=== PATIENT | male | born 1940 | race Two or more races ===

== ENCOUNTER 2020-08-04 12:39 | Outpatient (REF) | payer MEDICARE, SELFPAY ==
[2020-08-04 14:11] LABS: PSA,Total (Free>4and<10) 3.72 ng/mL (0.00-4.00)
== END 2020-08-04 12:40 | disposition home or self-care (01) ==
LOC: HO.LAB 12:39
PROVIDERS: PCP Internal Medicine; Visit Provider Urology
DX: N40.1 Benign prostatic hyperplasia with lower urinary tract symptoms (principal); Z80.42 Family history of malignant neoplasm of prostate
CPT/HCPCS: 36415; 84153

== ENCOUNTER → 2020-11-04 08:34 | Outpatient (BNVA) | payer MEDICARE, SELFPAY | PROVIDERS: PCP Internal Medicine; Visit Provider Physician Assistant | CPT/HCPCS: Q3014 ==

== ENCOUNTER 2020-12-22 07:30 | Day surgery (SDC) | payer MEDICARE, SELFPAY ==
[2020-12-17 15:11] VITALS: BMI 27.9
--- NOTE | 2020-12-22 07:38 | P.CONAN_ITS ---
[facility] Active Problems Active Problems: All Active Problems (Updated 11/04/20 @ 09:11 by Fannie day PA-C) History of colon polyps (Acute) Early satiety (Acute) Rectal bleeding (Acute) Past Medical History Medical History Early satiety Family History Family History Family/Other Prostate cancer Cancer Surgical History Surgical History H/O colonoscopy History of prostate surgery Social History Social History Household Members: Family and Children Alcohol intake: current Alcohol intake frequency: does not drink Smoking Status: Current every day smoker Tobacco Type: Cigarette Cigarettes Per Day: 12 Are you DNR?: No Advance Directives: No Advance Directives Information Provided: No Advance Directives on File: No Meds Allergies Allergy/AdvReac Type Severity Reaction Status Date / Time aspirin [ASPIRIN] Allergy Unknown BLEEDING Verified 11/04/20 08:34 diclofenac Allergy Unknown unsure if Verified 11/04/20 08:34 this is accurate Home Medications Medication Instructions Recorded Confirmed Last Taken Type acetaminophen 650 mg 650 mg PO Q8H PRN 11/04/20 11/04/20 Unknown History tablet,extended release finasteride 5 mg tablet 5 mg PO DAILY 11/04/20 11/04/20 Unknown History hydrochlorothiazide 12.5 mg capsule 12.5 mg PO DAILY 11/04/20 11/04/20 Unknown History Exam Exam Date and Time: December 22, 2020 0738 Height,Weight and Vital Signs: Height 5 ft 5 in Weight 76.204 kg Airway Mallampati Class: III TM Dist: >3cm Neck ROM: Full Heart: RRR Lungs: CTA
[2020-12-22 07:56] VITALS: BP 158/106; PULSE 87; RESP 18; TEMP 36.2; O2SAT 96
[2020-12-22] MEDS: Lactated Ringers 1,000 ML 20 ML IVCONT (08:13)
--- NOTE | 2020-12-22 08:36 | P.OP_ITS ---
Operative Note Operative Note Date of Service: 12/22/20 Narrative: Pre-op diagnosis: Colon cancer screening, history of colon polyps, with early satiety, rectal bleeding, and acid reflux . Post-op diagnosis: other (Colon polyps, diverticulosis, hemorrhoids, gastritis, duodenal nodule with ulcer, ) Procedure: FLEXIBLE TRANSORAL UPPER GASTROINTESTINAL ENDOSCOPY WITH BIOPSIES AND COLONOSCOPY TILL CECUM WITH BIOPSIES AND SNARE POLYPECTOMY UPPER ENDOSCOPY Consent: Indications for the procedure and potential complications of bleeding, perforation, reaction to medications and missed diagnosis were discussed with the patient and informed consent was obtained. Instrument: Olympus GIF H 190 mid size upper endoscope Monitoring: Vital signs and clinical assessment, continuous EKG monitoring, Pulse oximetry, Carbon Dioxide monitoring and blood pressure monitoring were done throughout the procedure. Procedure: The patient was placed in the left lateral decubitis position and pre-procedure medications were administered and a bite block was placed. The endoscope was inserted into the mouth and advanced under direct vision to the third part of duodenum. A careful inspection was made as the upper endoscope was withdrawn including a retroflexed examination of the proximal stomach; Findings and interventions are described below. Findings: Larynx: Normal Esophagus: GE junction at 40 cms. Focal mild esophagitis ar GE junction and no Lamar's. Stomach: Moderate diffuse gastric erythema with nodular appearing gastric mucosa. Biopsies were obtained from the antrum and body of the stomach. Grade 2 flap valve on retroflexed examination of the cardia. Duodenum: A 1 cms ulcer in the floor of the bulb with surrounding edematous fold/ 1.5 to 2 cms benign appearing nodule - biopsied. Normal descending duodenum Intervention: Biopsies as noted above COLONOSCOPY PROCEDURE NOTE Consent: Indications for the procedure and potential complications of bleeding, perforation, reaction to medications and missed diagnosis were discussed with the patient and informed consent was obtained. Instrument: Olympus PCF H 190 L variable stiffness pediatric colonoscope Monitoring: Vital signs and clinical assessment, intermittent blood pressure monitoring, continuous EKG monitoring, Pulse oximetry and Carbon Dioxide monitoring were done throughout the procedure. Colon withdrawl time was 32 minutes. Procedure: The patient was placed in the left lateral decubitis position and pre-procedure medications were administered. After a digital rectal examination of the ano-rectum, the video colonoscope was inserted into the rectum and advanced through the colon to the cecum. The colonoscope was slowly withdrawn in a retrograde panoramic fashion and the colon mucosa was carefully examined including a retroflexed view of the rectum. Findings and interventions are described below. Procedure Difficulty: : Without difficulty Findings: Terminal Ileum: Not evaluated Cecum: Partially evaluated across the ICV Ascending Colon: Two 5-6 mm sessile polyps removed with a cold bx and moderate diverticulosis Transverse Colon: Two 5-6 mm sessile polyps removed with a cold bx. An 8-10 mm flat diminutive appearing polyp removed piecemeal with the cold biopsy and moderate diverticulosis seizure Descending Colon: A 10 mm sessile polyp removed with a hot snare and moderate diverticulosis Sigmoid Colon: Severe diverticulosis Rectum: Normal Ano-rectum: Moderate internal hemorrhoids Colon preparation: Good after copious irrigation and fair in some areas of the colon due to solid stool balls. Impression and Post Procedure Diagnosis: Endoscopy Findings: ESOPHAGUS: focal esophagitis at GE junction STOMACH: Nodular gastritis DUODENUM: A 1 cms ulcer in the floor of the bulb with surrounding edematous fold/ 1.5 to 2 cms benign appearing nodule - biopsied. Colonoscopy Findings: Six small to medium sized polyps removed Moderate to severe diverticulosis seen in the entire colon Moderate hemorrhoids on retroflexed exam - likely source for rectal bleeding. Plan: Await pathology results Plan: Await pathology results Patient has an appointment on 01/07/21 in the GI Clinic with CADY Meeks . Repeat Colonoscopy interval based on path results - in 3 years if polyps are adenomatous and 10 years if polyps are hyperplastic. Above findings were reviewed with the patient and colon polyps and diverticulosis handouts were given in the discharge area Surgeon: Soila Allen MD Anesthesia: MAC (Dr Brian ) Was an Learning Disabilities Teacher used for this Procedure?: No Estimated blood loss (mL): 0 Pathology: other (A: GASTRIC BXS R/O H. PYLORI B: NODULE DUODENAL BULB C: GASTRIC BODY D. ASCENDING COLON POLYPS E. TRANSVERSE COLON POLYP F. TRANSVERSE COLON POLYP AT 60CM ) Condition: stable Disposition: PACU
--- NOTE | 2020-12-22 08:36 | MHC.SHP ---
Pre-Procedural Eval Section A The patient is an INPATIENT: No The History & Physical has been completed within 30 days and I have reviewed it.: No Section B Chief Complaint: rectal bleeding, Early satiety Details of Present Illness: Colon cancer screening, history of colon polyps, early satiety, rectal bleeding Relevant Family History (Specify if Yes): Yes Relevant Social History: Tobacco Use Present Medications: see Short Stay Collaborative assessment Medical History: Significant History (hx of colon polyps) History of Previous Operations: Relevant previous surgery/procedure and date(s) (H/O colonoscopy History of prostate surgery) Allergies: Allergies Allergy/AdvReac Type Severity Reaction Status Date / Time aspirin [ASPIRIN] Allergy Mild BLEEDING Verified 12/22/20 07:56 diclofenac Allergy Unknown unsure if Verified 12/22/20 07:56 this is accurate Review of Systems Sugical H&P ROS: Negative: Constitution and Cardiovascular and Yes, Specify: Respiratory (shortness of breath) and Gastrointestinal (E satiety, rectal bleedingarly) Exam Surgical H&P Exam: Normal: Heart, Normal: Lungs, Normal: Extremities and Normal: Abdomen Plan Diagnosis/Plan: Unchanged I have reviewed the history and physical and performed a pertinent physical examination on my patient. No changes have occurred unless specified.
[2020-12-22 09:50] VITALS: BP 122/76; PULSE 87; RESP 16; TEMP 36.1; O2SAT 96
[2020-12-22 10:05] VITALS: BP 122/89; PULSE 74; RESP 16; TEMP 36.1; O2SAT 96
[2020-12-22 10:20] VITALS: BP 144/98; PULSE 67; RESP 16; TEMP 36.1; O2SAT 96
--- NOTE | 2020-12-22 12:54 | HO.POSTANES ---
Post Anesthesia Evaluation Post Anesthesia Evaluation Vital Signs: Vital Signs Temp Pulse Resp BP Pulse Ox 12/22/20 10:20 97 F 67 16 144/98 H 96 12/22/20 10:05 97 F 74 16 122/89 96 12/22/20 09:50 97 F 87 16 122/76 96 12/22/20 07:56 97.2 F 87 18 158/106 H 96 Anesthesia: Monitored Mental Status: Awake Pain Control: Satisfactory Nausea/Vomiting: None Hydration: Adequate Anesthesia-Related Issues: No Anes. Related Issues
== END 2020-12-22 11:16 | disposition home or self-care (01) ==
PROVIDERS: PCP Internal Medicine; Visit Provider Internal Medicine Gastroenterology
PROC: (CPT 45385; principal; 2020-12-22 07:30)
DX: Z12.11 Encounter for screening for malignant neoplasm of colon (principal); Z86.010 Personal history of colon polyps; K51.40 Inflammatory polyps of colon without complications; K63.5 Polyp of colon; K57.30 Diverticulosis of large intestine without perforation or abscess without bleeding; K64.8 Other hemorrhoids; K62.5 Hemorrhage of anus and rectum; R68.81 Early satiety; K21.00 Gastro-esophageal reflux disease with esophagitis, without bleeding; K31.7 Polyp of stomach and duodenum; K26.9 Duodenal ulcer, unspecified as acute or chronic, without hemorrhage or perforation; Z79.899 Other long term (current) drug therapy; Z88.8 Allergy status to other drugs, medicaments and biological substances; F17.210 Nicotine dependence, cigarettes, uncomplicated
CPT/HCPCS: 45385; 45380; 43239; 88305; 88312; 88342

== ENCOUNTER → 2021-02-03 12:45 | Outpatient (BNVA) | payer MEDICARE, SELFPAY | PROVIDERS: PCP Internal Medicine; Visit Provider Physician Assistant | CPT/HCPCS: Q3014 ==

== ENCOUNTER → 2021-12-01 11:16 | Outpatient (BNVA) | payer MEDICARE, SELFPAY | PROVIDERS: PCP Internal Medicine; Visit Provider Surgery | DX: L72.3 Sebaceous cyst (principal); I10 Essential (primary) hypertension; F17.210 Nicotine dependence, cigarettes, uncomplicated | CPT/HCPCS: 99202 ==

== ENCOUNTER 2022-01-11 07:58 | Outpatient (REF) | payer OTHER, SELFPAY ==
--- NOTE | ~2022-01-11 | US_ITS ---
EXAMINATION: US RETROPERITONEAL LIMITED (AORTA) CLINICAL INFORMATION: History of smoking, AAA screening. COMPARISON: None TECHNIQUE: Lovelace-scale, color Doppler and spectral Doppler evaluation of the abdominal aorta. FINDINGS: Slightly dilated abdominal aorta. No aneurysm is seen. The measurements of the aorta in maximum AP and transverse dimensions respectively are as follows: Proximal: 3.5 x 3.4 cm. Mid: 2.4 x 2.7 cm. Distal: 2.8 x 3.0 cm. PSV: 40.0 cm/s. Slightly dilated common iliac arteries. The measurements of the common iliac arteries in maximum AP and TRV dimensions are as follows: Right Common Iliac Artery: 1.4 x 1.1 cm. Left Common Iliac Artery: 1.5 x 1.4 cm. US/US aorta IMPRESSION: Slightly dilated abdominal aorta and common iliac arteries. No aneurysm is seen..
== END 2022-01-11 07:59 | disposition home or self-care (01) ==
LOC: HO.US 07:58
PROVIDERS: PCP Internal Medicine; Visit Provider Internal Medicine
DX: Z13.6 Encounter for screening for cardiovascular disorders (principal); F17.210 Nicotine dependence, cigarettes, uncomplicated
CPT/HCPCS: 76775

== ENCOUNTER 2022-01-29 09:05 | Outpatient (REF) | payer OTHER, SELFPAY ==
--- NOTE | ~2022-01-29 | XR_ITS ---
EXAMINATION: XR CHEST CLINICAL INFORMATION: Shortness of breath and cough COMPARISON: Previous chest x-ray from [address] from 2018 TECHNIQUE: 2 views of the chest were obtained. FINDINGS: The cardiac silhouette does not appear enlarged. The thoracic aorta is very tortuous and slightly dilated. This appears unchanged from [address] The lungs are clear. There is no pleural effusion or pneumothorax. Bony structures are unremarkable. XR/XR chest 2V IMPRESSION: Very tortuous slightly dilated descending thoracic aorta similar to chest CTA July 2017.
[2022-01-29 10:03] LABS: Appearance Urine CLEAR; Color Urine YELLOW; Glucose Urine UA NEG (NEG); Leukocyte Esterase Urine NEG (NEG); Nitrite Urine NEG (NEG); Specific Gravity - Urine 1.025 (1.005-1.025); UACC Culture Trigger NO; Urine Blood TRACE (NEG); Urine Ketones NEG (NEG); Urine Protein 1+ MG/DL (NEG-TRACE)
[2022-01-29 10:33] LABS: Anion Gap 11 (12-20); Blood Urea Nitrogen 20 mg/dL (9-16); Calcium 8.7 mg/dL (8.4-10.2); Carbon Dioxide 26 mmol/L (22-29); Chloride 105 mmol/L (96-108); Estimated Glomerular Filt Rate 52; Glucose Random 88 mg/dL (60-115); Potassium 4.3 mmol/L (3.3-5.1); Sodium 138 mmol/L (135-145)
[2022-01-29 10:42] LABS: B Type Natriuretic Peptide 27 pg/mL (<100)
[2022-01-29 11:19] LABS: Mucus Urine 1+ /LPF; RBC Urine 0-2 /HPF (0); WBC Urine 0-2 /HPF (0-4)
== END 2022-01-29 09:06 | disposition home or self-care (01) ==
LOC: HO.LAB 09:05
PROVIDERS: PCP Internal Medicine; Visit Provider Internal Medicine
DX: R06.02 Shortness of breath (principal)
CPT/HCPCS: 36415; 71046; 80048; 81001; 83880

== ENCOUNTER → 2022-06-03 14:50 | Outpatient (REF) | payer OTHER, SELFPAY ==
--- NOTE | 2022-06-03 15:00 | CA_ITS ---
Transthoracic Echocardiogram Patient (Last, First, Middle): Isauro Tiwari, Gender: Male Date of : 1940 Age: 81 Procedure Date: 06/03/2022 Procedure Type: Transthoracic Echocardiogram Location: OP Height: 165.1 cm Weight: 76.2 kg BSA: 1.84 m2 Heart Rate: bpm BP: 122 / 70 mmHg Supervisor Labor Gang: Referring MD: Estrella Beck MD Symptoms: I10 HTN, R06.02 SHORTNESS OF BREATH Study Quality: Good ECG Rhythm: Sinus Conclusions: - The left ventricular systolic function is normal. The calculated ejection fraction is 56% by biplane method. - Aortic valve sclerosis without any significant stenosis. Findings Left Ventricle Normal left ventricular cavity size. There is normal left ventricular wall thickness. The left ventricular systolic function is normal. The calculated ejection fraction is 56% by biplane method. There is no evidence of regional wall motion abnormalities. Diastolic function is normal for age. There is moderate septal and moderate basal asymmetric hypertrophy. Right Ventricle Normal right ventricular cavity size and systolic function. Atria Both atria are normal in size. Aortic Valve There is mild calcification of the aortic valve. There is mild thickening of the aortic valve. There is no aortic valve stenosis. There is no aortic valve regurgitation. Mitral Valve The mitral valve appears normal. There is trace mitral valve regurgitation. There is no mitral valve stenosis. Pulmonic Valve The pulmonic valve is likely normal. Tricuspid Valve Normal tricuspid valve structure. There is trace tricuspid valve regurgitation. There is no evidence of pulmonary hypertension. Great Vessels Top normal ascending aortic size at 3.9cm. Venous The inferior vena cava is normal in size and collapses greater than 50% with inspiration. Pericardium/Pleural There is no evidence of pericardial effusion. Prior Study Comparison No prior study available for comparison. Measurements 2D Linear Measurements IVSd: 1.07 0.6-0.9/0.6-1.0 cm LVIDd: 4.23 3.9-5.3/4.2-5.9 cm LVIDd Index: 2.30 2.4-3.2/2.2-3.1 cm/m2 LVIDs: 2.84 2.0-3.6 cm LVPWd: 1.01 0.7-1.1 cm Ao Root: 4.00 2.1-3.5 cm LA Diam: 3.90 2.7-3.8/3.0-4.0 cm LAIDs Index: 2.12 1.5-2.3 cm/m2 LV Mass: 182.57 67-162/88-224 g LV Mass Index: 99.23 43-95/49-115 g/m2 LVOT Diam: 2.20 3.0+(-)1.3 cm 2D Systolic Function EF 4C: 52.60 >55% EF 2C: 57.30 >55% EF BiP: 56.10 >55% Mitral Valve MV Pk E: 0.75 MV PK A: 1.11 MV Decel Time: 220.00 E/A: 0.70 E'Lateral: 7.07 E'Medial: 6.53 E/E' Med: 11.40 E/E' Lat: 10.60 PHT: 65.00 MVA PHT: 3.38 Decel Clark: 3.38 Aortic Valve AoV Pk Pedro: 1.89 AoV Mn Pedro: 1.24 AoV VTI: 0.42 AoV Pk Grad: 14.00 Aov Mn Grad: 8.00 PARI Cont.VTI: 1.70 LVOT LVOT Pk Pedro: 0.82 LVOT Mn Pedro: 0.54 LVOT VTI: 0.19 LVOT Pk Grad: 3.00 LVOT Mn Grad: 1.00 LVOT Diam: 2.20 LVOT Area: 3.80 Diastolic Function MV Pk E: 0.75 MV Pk A: 1.11 E/A: 0.70 E'Medial: 6.53 E/E' Med: 11.40 E' Laterial: 7.07 E/E' Lat: 10.60 Right Ventricle TAPSE (mm): 27.00 TVS' Pedro: 11.00 Tricuspid Valve TR Pk Pedro: 2.25 TR Pk Grad: 20.00 RA Press: 3.00 RVSP: 23.00 Great Vessels Aorta Ao Root-2D: 4.00 2.0-3.7 cm Ao Asc: 3.90 2.1-3.4 cm Pulmonary Valve PV Pk Pedro: 0.88 Peak PV Grad: 3.00 Updated in Other Vendor System with Status of Final Molina Patel MD electronically signed on 06/04/2022 9:21:23 AM with status of Final
== END ==
LOC: HO.CARD 14:50
PROVIDERS: PCP Internal Medicine; Visit Provider Internal Medicine
DX: R06.02 Shortness of breath (principal); I10 Essential (primary) hypertension
CPT/HCPCS: 93306

== ENCOUNTER 2022-12-02 14:54 | Outpatient (REF) | payer OTHER, SELFPAY ==
[2022-12-02 16:59] LABS: Urine Cytology See Pathology rpt
== END 2022-12-02 14:55 | disposition home or self-care (01) ==
LOC: HO.LNP 14:54
PROVIDERS: PCP Internal Medicine; Visit Provider Urology
DX: N40.1 Benign prostatic hyperplasia with lower urinary tract symptoms (principal); N13.8 Other obstructive and reflux uropathy; R35.1 Nocturia; R39.89 Other symptoms and signs involving the genitourinary system; R31.9 Hematuria, unspecified
CPT/HCPCS: 51798; 88112; 99212

== ENCOUNTER 2023-02-20 10:03 | Outpatient (REF) | payer OTHER, SELFPAY ==
--- NOTE | ~2023-02-20 | US_ITS ---
EXAMINATION: US RETROPERITONEAL COMPLETE (RENAL) CLINICAL INFORMATION: Benign prostatic hyperplasia with lower urinary tract symptoms. COMPARISON: MRI abdomen without and with contrast 11/09/2017. CT abdomen and pelvis without and with contrast 09/22/2017. TECHNIQUE: Real-time imaging of the kidneys and bladder. FINDINGS: RIGHT KIDNEY: 10.9 x 5.1 x 4.5 cm (SAG x AP x TRV). The kidney is normal in size, contour, and echogenicity. Renal cortical thickness is normal. No renal calculi or hydronephrosis. Benign-appearing renal cysts measuring up to 1.3 cm. No follow-up imaging is recommended. LEFT KIDNEY: 11.3 x 6.0 x 5.2 cm (SAG x AP x TRV). The kidney is normal in size, contour, and echogenicity. Renal cortical thickness is normal. No renal calculi or hydronephrosis. Benign-appearing renal cysts measuring up to 2.8 cm. No follow-up imaging is recommended. BLADDER: Well distended and normal. Bilateral ureteral jets are demonstrated. Prevoid bladder volume is 189 mL. Postvoid bladder volume is 42.4 mL. ADDITIONAL FINDINGS: Prostate is enlarged with a volume of 72.9 mL. US/US retroperitoneal comp IMPRESSION: Prostate is enlarged with a volume of 72.9 mL.
[2023-02-20 12:45] LABS: PSA,Total (Free>4and<10) 1.85 ng/mL (0.00-4.00)
== END 2023-02-20 10:04 | disposition home or self-care (01) ==
LOC: HO.US 10:03
PROVIDERS: Visit Provider Urology
DX: Z12.5 Encounter for screening for malignant neoplasm of prostate (principal); R31.9 Hematuria, unspecified; N40.1 Benign prostatic hyperplasia with lower urinary tract symptoms; N13.8 Other obstructive and reflux uropathy; R39.89 Other symptoms and signs involving the genitourinary system
CPT/HCPCS: 36415; 76770; 84153

== ENCOUNTER 2023-03-02 09:09 | Outpatient (AMB) | payer OTHER, SELFPAY ==
--- NOTE | 2023-03-02 09:21 | A.OFFVIS_ITS ---
Intake Intake Visit Reasons: Cysto/PSA/US(set) Intake Note: Patient is present for Cystoscopy Urology Med: Finasteride, Tamsulosin Antibiotic Allergy: None Blood Thinner: None Pharmacy: [facility] Disposable Cystoscope used during Procedure LOT#: [id number] EXP: 12/02/2024 Patient is requesting refill on Finasteride. States the medication has been very helpful Allergies aspirin [ASPIRIN] Allergy (Mild, Verified 03/02/23 09:24) BLEEDING diclofenac Allergy (Unknown, Verified 03/02/23 09:24) unsure if this is accurate Medication List - Last Reconciled 03/02/23 by Joaquin Alvarez MD acetaminophen ER 650 mg PO Q8H PRN docusate sodium (Colace) 200 mg (2 x 100 mg) PO BEDTIME finasteride (Proscar) 5 mg PO DAILY 90 days hydrochlorothiazide 12.5 mg PO DAILY omeprazole 20 mg PO DAILY pantoprazole 40 mg PO DAILY 30 days tamsulosin 0.4 mg PO DAILY 90 days HPI HPI Comments History of Present Illness Details Isauro is very pleasant male. He is seen for the following urologic conditions - lower urinary tract symptoms - hematuria Irish translation provided by qualified medical record assistant Here for cystoscopy following episode of hematuria Thinks things improve slowly with combination finasteride and tamsulosin Cystoscopy performed with regrowth of prostate and neovascularity Discussed need for repeat potential procedure Six month follow-up Lower urinary tract symptoms Longstanding Current therapy finasteride and tamsulosin Prior procedure on prostate Family history of prostate cancer Prior episode of hematuria Imaging - 02/19 renal bladder ultrasound with bilateral renal cysts and enlarged prostate 72 g PFSH Medical History BPH (benign prostatic hyperplasia) Early satiety HTN (hypertension) Surgical History H/O colonoscopy History of prostate surgery Family History Family/Other Prostate cancer Cancer Social History Household Members: Family and Children Alcohol intake: current Alcohol intake frequency: does not drink Cigarettes Per Day: 12 Review of Systems Const Denies chills and Denies fever(s) Card Reports no additional complaints and Denies syncope Resp Denies cough GI Denies abdominal pain and Denies heartburn Reports as per HPI and Denies change in libido Neuro Denies syncope Psych Denies change in libido Endo Denies change in libido Physical Exam Const General: cooperative, healthy appearing, comfortable and no acute distress Orientation/consciousness: patient oriented x3 HEENT Face and sinus: Yes normal facial exam Mouth: moist mucous membranes Neck Neck: Yes normal visual inspection, Yes full ROM and Yes trachea midline Chest Chest palpation & inspection: normal inspection of the chest Resp Effort & Inspection: normal respiratory effort, able to speak in complete sentences and no respiratory distress GI Inspection: Yes normal to inspection Back/Spine/Pelvis Cervical Spine: normal cervical lordosis Thoracic/Lumbar Spine: thoracic and lumbar spine normal to inspection Skin General skin exam: no rashes or lesions noted Neuro General: patient oriented x3, gait normal, tone normal and moves all extremities Extrem General: Yes normal to inspection and Yes capillary refill normal Office Procedures Cystoscopy Consent Discussed risk and benefit or proposed procedure with the patient. Information consent for procedure given to the patient. Discussed technical aspects, risks, benefits and alternatives in full. Addressed all of the patient's questions and concerns regarding the procedure. The patient demonstrated knowledge and understanding. They wish to proceed with this procedure. Preparation The patient was prepped in the usual manner. A senior data analyst was present and in the room. Genitalia was prepped with betadine solution in a sterile manner. Lidocaine Jelly 2% was placed into the urethra and 16Fr flexible Olympus cystoscope was inserted into the meatus after adequate lubrication. [id number] Procedure code (CPT) selection complete Office Meds lidocaine HCl Performing Provider: Joaquin Alvarez MD Administered by: Mar Richard RN on 03/02/23 09:42 Dose Route Admin Location Lot Number Expiration Date [employer] 10 mL intra-urethral nitrofurantoin monohyd/m-cryst 100 mg Performing Provider: Joaquin Alvarez MD Administered by: Mar Richard RN on 03/02/23 09:42 Dose Route Admin Location Lot Number Expiration Date [employer] 100 mg PO Assessment & Plan Assessment & Plan (1) Hematuria: Code(s): R31.9 - Hematuria, unspecified (2) BPH w urinary obs/LUTS: Code(s): N40.1 - Benign prostatic hyperplasia with lower urinary tract symptoms; N13.8 - Other obstructive and reflux uropathy Plan Six month follow-up Orders: Orders PSA,Total (Free>4and<10) 02/20/23 N13.8 - Other obstructive and reflux uropathy, N40.1 - Benign prostatic hyperplasia with lower urinary tract symptoms Vidal Ayers MD AMB Cystoscopy Today R31.9 - Hematuria, unspecified Joaquin Alvarez MD AMB Urinalysis Automated Today Z13.9 - Encounter for screening, unspecified Joaquin Alvarez MD Medications: Refilled tamsulosin 0.4 mg PO DAILY 90 caps 1RF 90 days Joaquin Alvarez MD finasteride (Proscar) 5 mg PO DAILY 90 tabs 3RF 90 days C61 - Malignant neoplasm of prostate Joaquin Alvarez MD Patient Instructions: Imaging studies, laboratory and physical exam results were discussed and reviewed in detail. No major barriers to patient understanding were identified. An opportunity to ask questions regarding the treatment plan was provided. All questions were answered. The patient expressed understanding and agreement with the above treatment plan. The patient is aware they should contact our office by phone for worsening of their current condition or the appearance of new urologic symptoms. Compliance is encouraged with any medications and followup testing that is ordered. It is a privilege to participate in the urologic care of your patient. If you have any questions or concerns regarding treatment for the above conditions, or other urologic issues, please do not hesitate to contact me. The office telephone contact is [phone]. This note is constructed using voice recognition software. While every effort has been made to ensure accuracy optical laboratory technician errors may have been included. Yours sincerely, Dr Joaquin Alvarez MD, [facility] - Urology Providers of Expert, Compassionate Care for the Genitourinary System Coding Level of Care Code Est Pt Level 4 (58252) Diagnoses Hematuria R31.9 BPH w urinary obs/LUTS N40.1; N13.8 CPT Codes Cystoscopy - CPT: 94149-[id number] ([id number])
== END 2023-03-02 11:01 | disposition home or self-care (01) ==
PROVIDERS: Visit Provider Urology
DX: R31.9 Hematuria, unspecified (principal); N40.1 Benign prostatic hyperplasia with lower urinary tract symptoms; N13.8 Other obstructive and reflux uropathy
CPT/HCPCS: 52000

== ENCOUNTER → 2023-03-02 09:09 | Outpatient (BNVA) | payer OTHER, SELFPAY | PROVIDERS: Visit Provider Urology | DX: N40.1 Benign prostatic hyperplasia with lower urinary tract symptoms (principal); N13.8 Other obstructive and reflux uropathy; R31.9 Hematuria, unspecified | CPT/HCPCS: 52000 ==

== ENCOUNTER 2023-03-20 10:50 | Outpatient (REF) | payer OTHER, SELFPAY ==
--- NOTE | ~2023-03-20 | XR_ITS ---
EXAMINATION: XR HIP, LEFT CLINICAL INFORMATION: Pain. COMPARISON: None available. TECHNIQUE: AP and frog-leg lateral views of the left hip. FINDINGS: Bony alignment and mineralization are normal. The left acetabular joint space is well-maintained. There is slight peripheral osteophyte formation of the left acetabular roof. The left femoral head is smooth. No fracture or dislocation is seen. The pubic symphysis is intact. No foreign body is seen. There are vasectomy clips. 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 No fracture or dislocation is seen.
--- NOTE | ~2023-03-20 | XR_ITS ---
EXAMINATION: CERVICAL SPINE 3 VIEWS CLINICAL INFORMATION: Neck pain status-post fall. COMPARISON: None. TECHNIQUE: Frontal, lateral and odontoid views are obtained. FINDINGS: Vertebral body heights and alignment are normal. At C4-C5, there is mild disc space narrowing. At C6-C7, there is marked disc space narrowing. At C7-T1, there is a 3 mm anterolisthesis. The remaining disc spaces are relatively well-maintained. No acute fracture or spondylolisthesis is seen. There is multi-level mild cervical spondylosis. The posterior elements are intact. The dens and C7-T1 interface are normal. There is no prevertebral soft tissue swelling. 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 Degenerative disc disease is most pronounced at C6-C7, where it is severe. EXAMINATION: XR LUMBOSACRAL SPINE CLINICAL INFORMATION: Lower back pain status-post fall. COMPARISON: Lumbar spine radiographs dated 03/30/2015. TECHNIQUE: AP and lateral views of the lumbar spine and lateral view of the lumbosacral junction. FINDINGS: There is bony demineralization. There is a mild lumbar rotatory dextroscoliosis. Vertebral body heights are normal. At L5-S1, there is moderate disc space narrowing, with spondylosis. The remaining disc spaces are relatively well-maintained. No acute fracture or spondylolisthesis is seen. This multi-level mild lumbar spondylosis. The posterior elements are intact. There are aortoiliac atherosclerotic calcifications. The paravertebral soft tissues are unremarkable. IMPRESSION: 1. At L5-S1, there is moderate degenerative disc disease, with facet arthropathy. 2. No acute fracture or spondylolisthesis is seen. 3. There is multi-level lumbar facet arthropathy. 4. There is a mild lumbar rotatory dextroscoliosis.
--- NOTE | ~2023-03-20 | XR_ITS ---
EXAMINATION: CERVICAL SPINE 3 VIEWS CLINICAL INFORMATION: Neck pain status-post fall. COMPARISON: None. TECHNIQUE: Frontal, lateral and odontoid views are obtained. FINDINGS: Vertebral body heights and alignment are normal. At C4-C5, there is mild disc space narrowing. At C6-C7, there is marked disc space narrowing. At C7-T1, there is a 3 mm anterolisthesis. The remaining disc spaces are relatively well-maintained. No acute fracture or spondylolisthesis is seen. There is multi-level mild cervical spondylosis. The posterior elements are intact. The dens and C7-T1 interface are normal. There is no prevertebral soft tissue swelling. 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 Degenerative disc disease is most pronounced at C6-C7, where it is severe. EXAMINATION: XR LUMBOSACRAL SPINE CLINICAL INFORMATION: Lower back pain status-post fall. COMPARISON: Lumbar spine radiographs dated 03/30/2015. TECHNIQUE: AP and lateral views of the lumbar spine and lateral view of the lumbosacral junction. FINDINGS: There is bony demineralization. There is a mild lumbar rotatory dextroscoliosis. Vertebral body heights are normal. At L5-S1, there is moderate disc space narrowing, with spondylosis. The remaining disc spaces are relatively well-maintained. No acute fracture or spondylolisthesis is seen. This multi-level mild lumbar spondylosis. The posterior elements are intact. There are aortoiliac atherosclerotic calcifications. The paravertebral soft tissues are unremarkable. IMPRESSION: 1. At L5-S1, there is moderate degenerative disc disease, with facet arthropathy. 2. No acute fracture or spondylolisthesis is seen. 3. There is multi-level lumbar facet arthropathy. 4. There is a mild lumbar rotatory dextroscoliosis.
== END 2023-03-20 10:51 | disposition home or self-care (01) ==
LOC: HO.XRAY 10:50
PROVIDERS: PCP Internal Medicine; Visit Provider Internal Medicine
DX: M54.50 Low back pain, unspecified (principal); M54.2 Cervicalgia; M25.552 Pain in left hip
CPT/HCPCS: 72050; 72100; 73502

== ENCOUNTER → 2023-04-18 11:24 | Outpatient (REF) | payer OTHER, SELFPAY ==
--- NOTE | 2023-04-18 11:29 | HM_ITS ---
Conclusion: 1. Patient was monitored for total period of 2 days 2. Baseline was normal sinus with average heart of 80 beats per minute 3. No significant pauses noted 4. Rare PACs and PVCs noted 5. No patient reported events MTDD
== END ==
LOC: HO.CARD 11:24
PROVIDERS: PCP Internal Medicine; Visit Provider Internal Medicine
DX: R55 Syncope and collapse (principal)
CPT/HCPCS: 93225

== ENCOUNTER → 2023-04-18 11:29 | Outpatient (BNV) | payer OTHER, SELFPAY | PROVIDERS: PCP Internal Medicine; Visit Provider Internal Medicine Cardiovascular Disease | DX: I49.1 Atrial premature depolarization (principal) | CPT/HCPCS: 93227 ==

== ENCOUNTER 2023-09-13 11:24 | Outpatient (REF) | payer OTHER, SELFPAY ==
[2023-09-13 15:06] LABS: PSA,Total (Free>4and<10) 1.38 ng/mL (0.00-4.00)
== END 2023-09-13 11:25 | disposition home or self-care (01) ==
LOC: HO.CHCLDS 11:24
PROVIDERS: Visit Provider Urology
DX: N40.1 Benign prostatic hyperplasia with lower urinary tract symptoms (principal); N13.8 Other obstructive and reflux uropathy; Z12.5 Encounter for screening for malignant neoplasm of prostate
CPT/HCPCS: 36415; 84153

== ENCOUNTER 2023-09-29 13:38 | Outpatient (AMB) | payer OTHER, SELFPAY ==
--- NOTE | 2023-09-29 13:43 | A.OFFVIS_ITS ---
Intake Intake Visit Reasons: 6M PSA/PVR(set) (Confirmed) Intake Note: Patient presents today for a follow-up Labs and PVR Meds- Finasteride, Tamsulosin Allergies to Antibiotic- No Known Allergies Blood Thinner- None Post Void Residual: 10ml Cutter Tender Required: No Accompanied by: Self / Same As Patient Allergies aspirin [ASPIRIN] Allergy (Mild, Verified 09/29/23 14:04) BLEEDING diclofenac Allergy (Unknown, Verified 09/29/23 14:04) unsure if this is accurate HPI HPI Comments History of Present Illness Details Isauro is very pleasant male. He is seen for the following urologic conditions - lower urinary tract symptoms - hematuria Georgian translation provided by qualified director medical science Combination tamsulosin and finasteride PVR 10 cc Prior cystoscopy with regrowth of prostate neovascularity 02/19 Refill current prescriptions Schedule follow-up GreenLight laser prostate Lower urinary tract symptoms Longstanding Current therapy finasteride and tamsulosin Prior procedure on prostate Family history of prostate cancer Prior episode of hematuria Imaging - 02/19 renal bladder ultrasound with bilateral renal cysts and enlarged prostate 72 g PFSH Medical History BPH (benign prostatic hyperplasia) Early satiety HTN (hypertension) Surgical History H/O colonoscopy History of prostate surgery Family History Family/Other Prostate cancer Cancer Social History Household Members: Family and Children Alcohol intake: current Alcohol intake frequency: does not drink Cigarettes Per Day: 12 Review of Systems Const Denies chills and Denies fever(s) Card Reports no additional complaints and Denies syncope Resp Denies cough GI Denies abdominal pain and Denies heartburn Reports as per HPI and Denies change in libido Neuro Denies syncope Psych Denies change in libido Endo Denies change in libido Physical Exam Const General: cooperative, healthy appearing, comfortable and no acute distress Orientation/consciousness: patient oriented x3 HEENT Face and sinus: Yes normal facial exam Mouth: moist mucous membranes Neck Neck: Yes normal visual inspection, Yes full ROM and Yes trachea midline Chest Chest palpation & inspection: normal inspection of the chest Resp Effort & Inspection: normal respiratory effort, able to speak in complete sentences and no respiratory distress GI Inspection: Yes normal to inspection Back/Spine/Pelvis Cervical Spine: normal cervical lordosis Thoracic/Lumbar Spine: thoracic and lumbar spine normal to inspection Skin General skin exam: no rashes or lesions noted Neuro General: patient oriented x3, gait normal, tone normal and moves all extremities Extrem General: Yes normal to inspection and Yes capillary refill normal Office Procedures Post Void Residual Post Residual Void Post Void Residual (PVR): 10 90913-[id number] Void Residual by ultrasound Results AMB Urinalysis, Automated UA Leukoctes 0 Analisa/uL Last Edit by Awilda Lowemicah Lowe [facility] on 09/29/23 14 :10 UA Nitrite Negative [facility] on 09/29/23 14: 10 UA Urobilinogen 0.2 mg/dL [facility] on 4 14:10 UA Protein 15 mg/dL Last Edit [facility] on 09/29/23 14:1 0 UA pH 6.0 Last Edit [facility] on 09/29/23 14:10 UA Blood 0 Shaka/uL Last Edit [facility] on 09/29/23 14:10 UA Specific [place] 1.020 Last Edit [facility] on 14:10 UA Ketone Negative Last Edit [facility] on 09/29/23 14:1 0 UA Bilirubin 0 mg/dL Last Edit [facility] on 09/29/23 14: 10 UA Glucose 0 mg/dL Last Edit [facility], [facility] on 09/29/23 14:10 Assessment & Plan Assessment & Plan (1) BPH w urinary obs/LUTS: Code(s): N40.1 - Benign prostatic hyperplasia with lower urinary tract symptoms; N13.8 - Other obstructive and reflux uropathy (2) Nocturia: Code(s): R35.1 - Nocturia Plan Risks, benefits and alternatives to therapy were discussed. These include but are not limited to infection, bleeding, damage to local organs and tissues, need for further interventions. Anesthetic risks regarding cardiac arrhythmia, blood clots, and potential mortality were discussed. The patient understands the typical recovery time and the outpatient nature of the procedure. After consideration of these risks the patient gives full informed consent and they wish to move ahead with the procedure. GreenLight laser prostatectomy Orders: Orders AMB Post Void Residual by ultrasound Today R33.9 - Retention of urine, unspecified AMB Urinalysis Automated Today R33.9 - Retention of urine, unspecified Medications: Refilled tamsulosin 0.4 mg PO DAILY 90 days 90 caps 1RF finasteride (Proscar) 5 mg PO DAILY 90 days 90 tabs 3RF C61 - Malignant neoplasm of prostate Discontinued omeprazole Discontinued Reason: Patient Refused 20 mg PO DAILY 30 caps 5RF docusate sodium (Colace) Discontinued Reason: Patient Refused 200 mg (2 x 100 mg) PO BEDTIME 60 caps 5RF pantoprazole Discontinued Reason: Patient Refused 40 mg PO DAILY 30 days 30 tabs 4RF Patient Instructions: Imaging studies, laboratory and physical exam results were discussed and reviewed in detail. No major barriers to patient understanding were identified. An opportunity to ask questions regarding the treatment plan was provided. All questions were answered. The patient expressed understanding and agreement with the above treatment plan. The patient is aware they should contact our office by phone for worsening of their current condition or the appearance of new urologic symptoms. Compliance is encouraged with any medications and followup testing that is ordered. It is a privilege to participate in the urologic care of your patient. If you have any questions or concerns regarding treatment for the above conditions, or other urologic issues, please do not hesitate to contact me. The office telephone contact is [phone]. This note is constructed using voice recognition software. While every effort has been made to ensure accuracy advertising job titles errors may have been included. Yours sincerely, Dr Joaquin Alvarez MD, ALBERTO [facility] - Urology Providers of Expert, Compassionate Care for the Genitourinary System Coding Level of Care Code Est Pt Level 4 (23242) Diagnoses BPH w urinary obs/LUTS N40.1; N13.8 Nocturia R35.1 CPT Codes Post Residual Void - PVR CPT Code: 30772-Nopv Void Residual by ultrasound ([id number])
== END 2023-09-29 14:19 | disposition home or self-care (01) ==
PROVIDERS: PCP Internal Medicine; Visit Provider Urology
DX: N40.1 Benign prostatic hyperplasia with lower urinary tract symptoms (principal); N13.8 Other obstructive and reflux uropathy; R35.1 Nocturia; R33.9 Retention of urine, unspecified
CPT/HCPCS: 99214

== ENCOUNTER → 2023-09-29 13:38 | Outpatient (BNVA) | payer OTHER, SELFPAY | PROVIDERS: PCP Internal Medicine; Visit Provider Urology | DX: N40.1 Benign prostatic hyperplasia with lower urinary tract symptoms (principal); N13.8 Other obstructive and reflux uropathy; R35.1 Nocturia | CPT/HCPCS: 51798; 81003; 99212 ==

== ENCOUNTER 2023-12-06 14:37 | Outpatient (AMB) | payer OTHER, SELFPAY ==
--- NOTE | 2023-12-06 14:38 | A.OFFVIS_ITS ---
Intake Visit Reasons: H&P Greenlight Intake Note: Telephone appointment for H&P Greenlight Allergies aspirin [ASPIRIN] Allergy (Mild, Verified 09/29/23 14:04) BLEEDING diclofenac Allergy (Unknown, Verified 09/29/23 14:04) unsure if this is accurate HPI Comments Details: Isauro is very pleasant male. He is seen for the following urologic conditions - lower urinary tract symptoms - hematuria Danish translation provided by qualified medical office scheduler Telemedicine Evaluation 15 min Consultation Doximity Lluvia Video attempted Combination tamsulosin and finasteride PVR 10 cc Prior cystoscopy with regrowth of prostate neovascularity 02/19 GreenLight laser prostate scheduled for next week Questions answered Lower urinary tract symptoms Longstanding Current therapy finasteride and tamsulosin Prior procedure on prostate Family history of prostate cancer Prior episode of hematuria Imaging - 02/19 renal bladder ultrasound with bilateral renal cysts and enlarged prostate 72 g PFSH Medical History BPH (benign prostatic hyperplasia) HTN (hypertension) Early satiety Surgical History H/O colonoscopy History of prostate surgery Family History Family/Other Prostate cancer Cancer Social History Household Members: Family and Children Alcohol intake: current Alcohol intake frequency: does not drink Cigarettes Per Day: 12 Review of Systems Const All systems reviewed & are unremarkable except as noted in HPI and below Reports no additional complaints Resp Reports no additional complaints GI Reports no additional complaints Reports as per HPI Musc Reports no additional complaints Physical Exam Telemedicine evaluation Appropriate responses Regular breathing rate and rhythm HEENT Head: Yes normal to inspection Ears: hearing grossly normal bilaterally Eyes General: appearance normal, both eyes and all related structures Neck Neck: Yes normal visual inspection Chest Chest palpation & inspection: normal inspection of the chest Resp Effort & Inspection: normal respiratory effort and able to speak in complete sentences Telehealth Telehealth Telehealth Platform: Telephone Location of provider rendering services: practice address Location of patient: address on file Patient Identification confirmed using: Name, : Yes Telehealth method: voice only Patient verbally consented to treatment: Yes Patient verbally consented to billing insurance company: Yes Patient informed of any privacy concerns related to visit: Yes Minutes spent on Phone/Video with Pt.: 15 Assessment & Plan Assessment & Plan (1) BPH w urinary obs/LUTS: Code(s): N40.1 - Benign prostatic hyperplasia with lower urinary tract symptoms; N13.8 - Other obstructive and reflux uropathy Category: Medical Plan We discussed the nature of the decision and reasonable options for performing a prostate intervention. Interventions include TURP, GreenLight laser enucleation of the prostate, GreenLight laser ablation of the prostate, transurethral incision of the prostate, and I-Tend prostate procedure. Options such as medical therapy were discussed. The relative uncertainties and benefits related to each alternate procedure were adequately discussed. General surgical risks including, but not limited to, pain, bleeding, infection, myocardial infarction, pulmonary embolus, deep vein thrombosis and cerebrovascular accident which may result in further hospitalization were discussed. Full disclosure of the procedure as well as all major risks, benefits and complications were discussed including but not limited to damage to the urethra or bladder neck, recurrent BPH, retrograde ejaculation, bladder infection, urge, de silviano frequency, incomplete emptying, dysuria, remote chance of erectile dysfunction, epididymitis, and meatal stenosis. The success rate of the procedure was discussed. Success of the procedure in the short-term does not necessarily guarantee that long-term success will be maintained. Suitable follow up will need to be maintained. The patient showed understanding of discussion. An opportunity was provided for questions to be answered and wishes to proceed with the following procedure. - greenlight Patient Instructions: Imaging studies, laboratory and physical exam results were discussed and reviewed in detail. No major barriers to patient understanding were identified. An opportunity to ask questions regarding the treatment plan was provided. All questions were answered. The patient expressed understanding and agreement with the above treatment plan. The patient is aware they should contact our office by phone for worsening of their current condition or the appearance of new urologic symptoms. Compliance is encouraged with any medications and followup testing that is ordered. It is a privilege to participate in the urologic care of your patient. If you have any questions or concerns regarding treatment for the above conditions, or other urologic issues, please do not hesitate to contact me. The office telephone contact is [phone]. This note is constructed using voice recognition software. While every effort has been made to ensure accuracy machine maintenance servicer errors may have been included. Yours sincerely, Dr Joaquin Alvarez MD, AL[facility]ERTO [facility] - Urology Providers of Expert, Compassionate Care for the Genitourinary System Coding Level of Care Code Tele Est Pt Level 3 (80706) Diagnoses BPH w urinary obs/LUTS N40.1; N13.8
== END 2023-12-06 14:53 | disposition home or self-care (01) ==
LOC: HO.HUSH 14:37
PROVIDERS: PCP Internal Medicine; Visit Provider Urology
DX: N40.1 Benign prostatic hyperplasia with lower urinary tract symptoms (principal); N13.8 Other obstructive and reflux uropathy
CPT/HCPCS: 99442

== ENCOUNTER → 2023-12-06 14:37 | Outpatient (BNVA) | payer OTHER, SELFPAY | PROVIDERS: PCP Internal Medicine; Visit Provider Urology ==

== ENCOUNTER → 2023-12-11 07:08 | Day surgery (SDC) | payer OTHER, SELFPAY ==
[2023-12-11] VITALS (8 sets, daily range): BP systolic 119–169; BP diastolic 65–109; PULSE 53–83; RESP 14–17; TEMP 36.4–36.6; O2SAT 94–100; BMI 28.8
--- NOTE | 2023-12-11 07:47 | ECG_ITS ---
Test Reason : chest pain Blood Pressure : / mmHG Vent. Rate : 068 BPM Atrial Rate : 068 BPM P-R Int : 188 ms QRS Dur : 064 ms QT Int : 392 ms P-R-T Axes : 053 -23 029 degrees QTc Int : 416 ms Sinus rhythm with occasional Premature ventricular complexes Otherwise normal ECG No previous ECGs available Referred By: Bj Oneil Electronically Signed By:NEO JOSEPH MD
[2023-12-11] MEDS: Lactated Ringers 1,000 ML 50 ML IVCONT (08:00)
--- NOTE | 2023-12-11 08:09 | PC.NURSE ---
ekg performed ? chest pain two days ago. none today. patient states he has a chest congestion daily due to smoking. ALSO PATIENT HAD A SMALL SIP OF COFFEE WITH SUGAR NO CREAM THIS MORNING AROUND 6AM. MD VAUGHN AWARE.
--- NOTE | 2023-12-11 08:37 | P.CONAN_ITS ---
[facility] Active Problems Active Problems: All Active Problems Hematuria (Acute) Abnormal prostate exam (Acute) Nocturia (Acute) BPH w urinary obs/LUTS (Acute) HTN (hypertension) (Acute) Sebaceous cyst (Acute) Cigarette smoker (Acute) Acid reflux (Acute) Diverticulosis of colon (Acute) Hemorrhoids (Acute) History of colon polyps (Acute) Early satiety (Acute) Rectal bleeding (Acute) Past Medical History Medical History BPH (benign prostatic hyperplasia) HTN (hypertension) Early satiety Family History Family History Family/Other Prostate cancer Cancer Family history of problems with anesthesia: No Surgical History Surgical History H/O colonoscopy History of prostate surgery History of Problems with Anesthesia: No Social History Social History Household Members: Family and Children Alcohol intake: current Alcohol intake frequency: does not drink Patient Tobacco Use Status: Current everyday Tobacco user Tobacco use type: Cigarette Cigarettes Per Day: 8 Use of substances other than those prescribed or required for medical reasons: No Are you DNR?: No Advance Directives: No Advance Directives Information Provided: Yes Meds Allergies Allergy/AdvReac Type Severity Reaction Status Date / Time aspirin [ASPIRIN] Allergy Mild BLEEDING Verified 09/29/23 14:04 diclofenac Allergy Unknown unsure if Verified 09/29/23 14:04 this is accurate Home Medications ?Medication ?Instructions ?Recorded ?Confirmed ?Last Taken ?Type acetaminophen 650 mg 650 mg PO Q8H PRN 11/04/20 03/02/23 Unknown History tablet,extended release hydrochlorothiazide 12.5 mg capsule 12.5 mg PO DAILY 11/04/20 03/02/23 Unknown History Exam Height,Weight and Vital Signs: Height 5 ft 5 in Weight 78.471 kg Last Vital Signs Temp 97.8 F 12/11/23 07:45 Pulse 63 12/11/23 08:27 Resp 16 12/11/23 07:45 BP 145/95 H 12/11/23 08:27 Pulse Ox 97 12/11/23 07:45 O2 Del Method Room Air 12/11/23 07:45 Airway Mallampati Class: III TM Dist: >3cm Neck ROM: Full Partial: Upper and Lower Assessment and Plan Assessment Anesthesia Assessment: Anesthesia Plan Discussed and Chart Reviewed Final Anesthetic Review Family History of Problems with Anesthesia: No History of Problems with Anesthesia: No NPO: Yes ASA Class: III Final Preanesthetic Review: No Changes in Pt Med Stat, Meds/Allgs Chart Reviewed, Consent Obtained/Reviewed and Anes Risks/Benef Reviewed Patient Risk: Intermediate Procedure Risk: Low Anesthetic Plan Anesthetic Plan: TIVA Disposition: Standard PACU
--- NOTE | 2023-12-11 09:16 | MHC.SHP ---
Pre-Procedural Eval Section A - 24 Hr Update-Section A only Date of Service: 12/11/23 The patient is an INPATIENT: No Changes since office visit: No Cold of Flu in the past 2 weeks, No New Medical Problems, No Changes in Medication and No Patient answered all questions The patient has been examined within 24 hours of the surgical procedure. The History & Physical has been completed within 30 days and I have reviewed it.: Yes Section B - Complete if H&P > 30 days Chief Complaint: Benign prostatic hyperplasia with lower urinary tr Details of Present Illness: TURP Relevant Social History: None Present Medications: see Short Stay Collaborative assessment Medical History: No relevant PMH History of Previous Operations: Relevant previous surgery/procedure and date(s) Allergies: Allergies Allergy/AdvReac Type Severity Reaction Status Date / Time aspirin [ASPIRIN] Allergy Mild BLEEDING Verified 09/29/23 14:04 diclofenac Allergy Unknown unsure if Verified 09/29/23 14:04 this is accurate Review of Systems Sugical H&P ROS: Negative: Constitution, Cardiovascular, Respiratory, Neurological, Psychiatric, Hem-Onc, Allergic/Immunologic, Gastrointestinal, Genitourinary, Musculoskeletal, Integumentary, Endocrine and Eyes/Ears/Nose/Throat Exam Surgical H&P Exam: Normal: HEENT, Normal: Heart, Normal: Lungs, Normal: Extremities, Normal: Abdomen, Normal: Skin and Normal: Neurological Plan Diagnosis/Plan: Unchanged (Laser prostatectomy) I have reviewed the history and physical and performed a pertinent physical examination on my patient. No changes have occurred unless specified. Time Spent With Patient Time: Total time managing care of this patient today ____ minutes.
--- NOTE | 2023-12-11 10:56 | P.OP_ITS ---
Operative Note Operative Note Date of Service: 12/11/23 Narrative: PreOperative Diagnosis: Bladder outlet obstruction Post Operative Diagnosis: Bladder outlet obstruction Procedure: GreenLight Laser Enucleation of the prostate CPT 67308 Surgeon: Dr Joaquin Alvarez Anesthesia: General Indications for procedure: Recurrent BPH History of bladder outlet obstruction. Treated with alpha-gideon and other medications. Still with symptoms. On cystoscopy in office has prior TURP with recurrent bilobar hypertrophy. Recommendation for prostate procedure with laser enucleation of prostate. Risks and benefits have been discussed. Focus was placed on development of retrograde ejaculation which is a normal part of this procedure. Procedure: After informed consent was verified the patient was brought to the operating room and placed in a supine position. Anesthesia was administered per protocol. Patient was placed in modified dorsal lithotomy position and prepped and draped in a sterile fashion. Safety pause time-out was confirmed. Antibiotics have been given. A Twenty-four Uzbek laser cystoscope was inserted per urethra. No abnormalities were found of the anterior and bulbar urethra. The bladder was examined and both ureteric orifices were seen in their normal positions away from the area of interest. Median lobe showed evidence of prior laser enucleation. Attention was directed to the lateral lobes. There had been regrowth with neovascularity and small melissa yps on the prostate Starting with the patient's right lateral lobe. First the 8:00 o'clock groove was further developed. This was moved in the lateral direction to undermine the tissue on the lateral side running from the bladder neck to the prostate apex. Focus was then placed on the laser at the 11 o'clock position to developing a secondary groove down to the level of bladder fibers. The creation of a second deep groove defined a segment of intervening tissue similar to a slice of orange. At the apex of the prostate the 2 grooves were linked the us releasing the intervening tissue. This tissue was then removed with a combination of enucleation and ablation working from the apex toward the bladder neck. A similar procedure was repeated on the patient's right-hand side. The only differences being the position of the lateral groove at the 5 'oclock positioin and the secondary groove at the 1 o'clock position, Otherwise the procedure was developed in a mirror fashion. After the majority of tissue had been debulked remnant tissue was ablated with the side fire laser and the curve of the prostate followed up each side wall clearly defining the anterior remnant strip that remained between the 11 and 1 o'clock positions. When this was had been completed debris and pieces of prostate were removed from the bladder with irrigation. Both ureteric orifices were reviewed again in shown to be patent in away from any areas of energy damage. The apical area was reviewed in any stray ooze was controlled. A 22 Uzbek 30 cc balloon Callaway catheter was placed over a stylet into the bladder. Clear efflux was obtained upopn irrigation with a Veronica piston syringe. 30 cc was placed in the balloon and gentle traction was placed. A snap was used to hold tension on the catheter to control bleeding during patient moved and transported. A drainage bag was placed. Once transportation is complete to the PACU the snap will be removed. The patient tolerated the procedure well, he was extubated in the operating and transferred in a stable condition to the recovery area. Total Power 267 kW Lasing time 40:06/60:00 Pathology: Prostate tissue Drains: Callaway catheter
[2023-12-11] MEDS: oxyCODONE HCl Immed Release 5 MG TABLET PO (11:35)
[2023-12-11] MEDS: Acetaminophen 325 MG TABLET 975 MG PO (11:35)
== END | disposition home or self-care (01) ==
PROVIDERS: PCP Orthopaedic Surgery; Visit Provider Urology
PROC: (CPT 52648; principal; 2023-12-11 09:00)
DX: N40.1 Benign prostatic hyperplasia with lower urinary tract symptoms (principal); N13.8 Other obstructive and reflux uropathy; R31.9 Hematuria, unspecified; Z80.42 Family history of malignant neoplasm of prostate; I10 Essential (primary) hypertension; R68.81 Early satiety; Z79.899 Other long term (current) drug therapy; Z88.8 Allergy status to other drugs, medicaments and biological substances; Z98.890 Other specified postprocedural states; F17.210 Nicotine dependence, cigarettes, uncomplicated
CPT/HCPCS: 52649; 88305; 93005; J1956; J2704; J3010

== ENCOUNTER → 2023-12-11 07:08 | Outpatient (BNV) | payer OTHER, SELFPAY | PROVIDERS: PCP Orthopaedic Surgery; Visit Provider Urology | DX: N40.1 Benign prostatic hyperplasia with lower urinary tract symptoms (principal); N32.0 Bladder-neck obstruction | CPT/HCPCS: 52649 ==

== ENCOUNTER → 2023-12-11 07:47 | Outpatient (BNV) | payer OTHER, SELFPAY | PROVIDERS: PCP Orthopaedic Surgery; Visit Provider Internal Medicine Cardiovascular Disease | DX: I49.3 Ventricular premature depolarization (principal) | CPT/HCPCS: 93010 ==

== ENCOUNTER → 2023-12-14 10:45 | Outpatient (BNVA) | payer OTHER, SELFPAY | PROVIDERS: PCP Internal Medicine; Visit Provider Urology | DX: N40.1 Benign prostatic hyperplasia with lower urinary tract symptoms (principal); N13.8 Other obstructive and reflux uropathy; R35.1 Nocturia | CPT/HCPCS: 51700; 51798 ==

== ENCOUNTER 2024-08-08 14:25 | Outpatient (REF) | payer OTHER, SELFPAY ==
[2024-08-08 17:42] LABS: MANUAL DIFF FLAG NO
[2024-08-08 18:25] LABS: Basophils Absolute Auto 0.1 X10*3/uL (0.0-0.2); Eosinophils Absolute Auto 0.7 X10*3/uL (0.0-0.4); Eosinophils Percent Auto 8.1 % (0-4); Hemoglobin 15.3 g/dl (14.0-18.0); Imm Gran Abs Auto 0.04 X10*3/uL (0.00-0.03); Imm Gran Pct Auto 0.5 % (0.0-0.4); Lymphocytes Absolute Auto 1.8 X10*3/uL (1.2-4.9); Lymphocytes Percent Auto 21.9 % (20-40); Mean Corpuscular HGB Conc 32.6 g/dl (31.0-36.0); Mean Corpuscular Hemoglobin 29.5 pg (27.0-33.0); Mean Corpuscular Volume 90.7 fL (80.0-98.0); Mean Platelet Volume 10.1 fL (9.4-12.4); Neutrophils Absolute Auto 4.7 x10*3/uL (2.0-8.3); Neutrophils Percent Auto 56.5 % (45-73); Platelet Count 275 X10*3/uL (160-400); Red Blood Count 5.18 X10*6/uL (4.60-5.80); Red Cell Distribution Width 13.8 % (11.0-16.0); White Blood Count 8.4 X10*3/uL (4.8-10.8)
== END 2024-08-08 14:26 | disposition home or self-care (01) ==
LOC: HO.CHCLDS 14:25
PROVIDERS: Visit Provider Internal Medicine
DX: K92.1 Melena (principal)
CPT/HCPCS: 36415; 85025

== ENCOUNTER 2024-09-19 10:50 | Outpatient (REF) | payer OTHER, SELFPAY ==
--- OUTSIDE RECORDS SUMMARY | 2024-09-19 11:59 | XMS_ITS | Encounter Summary ---
Author Organization [employer] Address [address] [place] [address] [address] [address] Care Team Providers Care Benzene Operator Name Role Phone Estrella Beck MD Primary Care Provider [phone] Reason for Referral * Imaging (Routine) - Pending Review Specialty Diagnoses / Procedures Referred By Willy t Referred To Contact Cardiology Diagnoses Primary hypertension MIJARES (dyspnea on exertion) Procedures Transthoracic Echo (TTE) Complete Estrella Beck MD [address] [place] [address] Phone: tel: fax: [address] Phone: tel: fax: Referral ID Status Reason Start Date Expiration Date Visits Requested Visits Authorized [id number] Pending Review Perform Procedure 09/19/2024 09/19/2025 1 1 Reason for Visit * Reason Comments Hypertension Hyperlipidemia Encounter Details Date Type Department Care Team (Latest Contact Info) Description 09/19/2024 9:45 AM EST Office Visit [facility] MED & PEDS [address] [place], [place] [phone] Estrella Beck MD [address] [place], [place] [phone] Hypercholesterolemia (Primary Dx); Primary hypertension; MIJARES (dyspnea on exertion) Social History Tobacco Use Types Packs/Day Years Used Date Smoking Tobacco: Every Day Cigarettes 0.5 60 Passive Smoke Exposure: Current Smokeless Tobacco: Never Housing Stability Answer Date Recorded What is your housing situation today? I have tawanda fitzgerald 06/14/[address] you li ve. Do you have problems with any of the following? None of the above 06/14/2023 Food Insecurity Answer Date Recorded Within the past 12 months, y ou worried that your food would run out before you got money to buy more: Never True 06/14/2023 Within the past 12 months,th e food you bought just didn't last and you didn't have enough money to get more: Never True Transportation Answer Date Recorded In the past 12 months, has l ack of transportation kept you from medical appts, meetings, work or from getting things needed for daily living? No 06/14/2023 Utilities Answer Date Recorded In the past 12 months, has t he electric, gas, oil or water company threatened to shut off services in your home? No 06/14/2023 Sex and Gender Information Value Date Recorded Sex Assigned at Male 05/30/2022 10:15 AM EDT Legal Sex Male 10:15 AM EDT Gender Identity Male 05/30/2022 10:15 AM EDT Sexual Orientation Straight 05/30/2022 10 :15 AM EDT documented as of this encounter Last Filed Vital Signs Vital Sign Reading Time Taken Comments Blood Pressure 142/78 09/19/2024 10:22 AM EST Pulse 79 09/19/2024 9:55 AM EST Temperature 36.5 ??C (97.7 ??F) 09/19/2024 9:55 AM ES T Respiratory Rate 20 09/19/2024 9:55 AM EST Oxygen Saturation 97% 09/19/2024 9:55 AM EST Inhaled Oxygen Concentration - - Weight 75.9 kg (167 lb 4 oz) 09/19/2024 9:55 AM EST Height 165.3 cm (5' 5.06 ) 09/19/2024 9:55 AM ES T Body Mass Index 27.78 09/19/2024 9:55 AM EST documented in this encounter Plan of Treatment Scheduled Orders Name Type Priority Associated Diagnoses Orde r Schedule CBC auto differential Lab Routine Hypercholesterolemia Primary hypertension Expected: 09/19/2024 (Approximate), Expires: 09/19/2025 Comprehensive Metabolic Panel Lab Routine Hypercholesterolemia Primary hypertension Expected: 09/19/2024 (Approximate), Expires: 09/19/2025 TSH W/Reflex to FT4 Lab Routine Hypercholesterolemia Primary hypertension Expected: 09/19/2024 (Approximate), Expires: 09/19/2025 Lipid Panel, Standard Lab Routine Hypercholesterolemia Primary hypertension Expected: 09/19/2024 (Approximate), Expires: 09/19/2025 Transthoracic Echo (TTE) Complete Echocardiography Routine Primary hypertension IMJARES (dyspnea on exertion) Expected: 09/19/2024 (Approximate), Expires: 09/19/2026 documented as of this encounter Visit Diagnoses Diagnosis Hypercholesterolemia- Primary Pure hypercholesterolemia Primary hypertension Unspecified essential hypertension MIJARES (dyspnea on exertion) Other dyspnea and respiratory abnormality documented in this encounter Care Teams Benzene Operator Relationship Specialty Start Date End Date Estrella Beck MD [address] [place] [id number] PCP - General Internal Medicine 07/31/18 documented as of this encounter
--- OUTSIDE RECORDS SUMMARY | 2024-09-19 11:59 | XMS_ITS | Encounter Summary ---
Author Organization [employer] Address [address] [facility] [address] [place] [address] Care Team Providers Care Welding Equipment Repairer Name Role Phone Estrella Beck MD Primary Care Provider [phone] Reason for Visit * Reason Onset Date Comments Referral 06/12/2023 Encounter Details Date Type Department Care Team (Late st Contact Info) Description 06/12/2023 Telephone [facility] MEDICINE [address] [place] [address] Estrella Beck MD [address] [facility] [place] [phone] Referral Social History Tobacco Use Types Packs/Day Years Used Date Smoking Tobacco: Every Day Cigarettes 0.5 60 Smokeless Tobacco: Never Housing Stability Answer Date [...] AM EDT documented as of this encounter Miscellaneous Notes * Telephone Encounter - Lilian Crum RN - 06/12/2023 12:46 PM EST Noted. Pt was triaged this morning and is scheduled for Monday to discuss need for referral. * Telephone Encounter - Hu Louise - 06/12/2023 11:27 AM EST Tc from pt requesting a referral for orthopedic for back pain. Pt stated seen PCP on 03/17/23 and also had a XRAY done. Please contact at [phone] Georgian documented in this encounter Plan of Treatment Not on file documented as of this encounter Visit Diagnoses Not on filedocumented in this encounter Care Teams Welding Equipment Repairer Relationship Specialty Start Date End Date Estrella Beck MD [address] [place] [id number] PCP - General Internal Medicine 07/31/18 documented as of this encounter
--- OUTSIDE RECORDS SUMMARY | 2024-09-19 11:59 | XMS_ITS | Data Portability ---
Author Organization [employer] Address [address] [place] [phone] Assessment No assessment recorded. Plan of Treatment Reminders Order Date Submit Date Provider Last Modified By Organization Details Last Modified Time Details Appointments None record ed. Lab None record ed. Referral None record ed. Procedures None record ed. Surgeries None record ed. Imaging None record ed. Medication Orders None record ed. Patient TargetsNo targets recorded. Patient InstructionsNo instructions recorded. Reason for Referral None Reported. Medical Equipment None Reported. Allergies Allergen ID Allergen Name Allergen Category Reaction Reaction Severity Criticality Documentation Date Start Date Code Code System Note Provider Name and Address Organization Details Recorded Time 7622 aspirin medicatio n Not available Not available Not available 05/28/2024 1191 RxNorm Not Available [facility] - production 4 03:38:42 Medications Name Sig Start Date Stop Date Status Note LastModified by Organization Details LastModified Time acetaminophen 300 mg-codeine 30 mg tablet TAKE ONE TABLET EVERY 6 HOURS NEEDED FOR SEVERE PAIN active Not Available Not Available No t Available dextromethorph an-guaifenesin 10 mg-100 mg/5 mL oral syrup TAKE FIVE ML BY MOUTH EVERY 4 HOURS NEEDED FOR COUGH FOR UP TO 10 DAYS active Not Available Not Available No t Available methocarbamol 750 mg tablet TAKE ONE TABLET BY MOUTH FOUR TIMES DAILY FOR 10 DAYS active Not Available Not Available No t Available tamsulosin 0.4 mg capsule TAKE ONE CAPSULE EVERY DAY active Not Available Not Available No t Available hydrochlorothi azide 12.5 mg capsule TAKE ONE CAPSULE DAILY active Not Available Not Available No t Available finasteride 5 mg tablet TAKE ONE TABLET EVERY DAY active Not Available Not Available No t Available Arthritis Pain Relief (acetaminophen ) ER 650 mg tablet,extend release TAKE ONE TABLET EVERY 8 HOURS NEEDED active Not Available Not Available No t Available diclofenac 1 % topical gel APPLY TWO GRAMS TO THE AFFECTED AREA(s) TWICE DAILY active Not Available Not Available No t Available Vitals Date Recorded Oxygen saturation Oxygen saturation in Arterial blood by Pulse oximetry Respiratory rate Body temperature Body weight Heart rate Systolic blood pressure Diastolic blood pressure Provider Name and Address Organization Details Last Updated DateTime 4 99 % 99 % 18 /min 98.2 [degF] 20921.4 56 g 74 /min 154 mm[Hg] 88 mm[Hg] Not Available [facility] - production 4 17:54:08 Social History None recorded. Functional Status None recorded. Mental Status None recorded. Family History Nothing Reported. Medical History No medical history recorded. Past Encounters Encounter ID Performer Location Encounter Start Date Encounter Closed Date Diagnosis/Indication Diagnosis SNOMED-CT Code Diagnosis ICD10 Code Diagnosis Note [id number] Sherin Sow MD [facility] - [facility] [address] [place] [address] 08/09/2023 17:53:59 08/10/2023 09:57:09 Localized eruption of skin 513206860 R21 83 year old male being evaluated for rash since 1 day. Patient reports no new exposures, no fever/chil ls, no similar rashes previously . Patient denies itching or pain. Patient has not applied any products to the skin recently. Exam notable for normal vital signs, and malar type rash over the face, with maculopapu lar rash over the trunk. Presentati on consistent with malar rash of unclear etiology, recommend non-urgent outpatient workup. I have reviewed and agree with the assessment and plan as documented by the master fisher. I provided real-time medical direction for this encounter and was immediatel y available to provide additional phone-base d assistance as needed. We discussed the diagnostic uncertaint y of home visits and associated risks. We discussed the need to seek care urgently/e mergently in the setting of any new or worsening symptoms. Health Concerns Section Related Observation LastModified by Organization Detai ls LastModified Time None Recorded Concern Status LastModified by Organization Details LastModified Time None Recorded Advance Directives Directive None Recorded Payers Encounter Date Sequence Insurance Name Policy Number Policy Mcdaniels Covered Member ID Mcdaniels Member ID Guarantor Name 08/09/2023 1 [facility] - DOS ON OR AFTER 2022 - DUAL ELIGIBLE - FDC OPTIONS AND ONE CARE (MEDICARE REPLACEMENT/ADV ANTAGE - HMO) Isauro Tiwari [id number] Isauro Tiwari Notes Date Note Type Note Provider Name and Address Organization Details Recorded Time 08/09/2023 text/html HPI: Patient with onset of rash on lower back and face, ears, forehead and cheeks. No known exposure to allergen. .................. .................. .................. .................. .................. .................. .................. ............... [facility] Nurse Triage Notes (Ginger Deluna): Comments: No further information needed to process .................. .................. .................. .................. .................. .................. .................. ............... Detacher Note From Arben Gallo: Pt co rash on face and back. Denies cp sob dizziness headaches pain nausea vomiting or diarrhea. Baseline vitals assessed. Pictures taken of rash and uploaded. [facility] contacted and advised to make appt with pcp for further testing. Pt education on signs indicating the ER. Detacher Allergies: Aspirin .................. .................. .................. .................. .................. .................. .................. ............... Disposition: Fulfilled Sherin Sow MD [address] [place] [address],[address], [place], [address], MARIELLE PARK 08/09/2023 20:56:44
--- OUTSIDE RECORDS SUMMARY | 2024-09-19 11:59 | XMS_ITS | Clinical Summary ---
Author Organization [employer] Address 75 [facility] 7[address] [place] [address] Care Team Providers Care Creative Arts Music Therapist Name Role Phone Estrella Beck MD Primary Care Provider [phone] Allergies Active Allergy Reactions Criticality Noted Date Comments Aspirin 10/28/2010 Other reaction(s): unspecified Medications tamsulosin (Flomax) 0.4 MG 24 hr capsuleIndicatio ns:Benign prostatic hyperplasia with nocturia Take 1 capsule (0.4 mg) by mouth in the morning. 30 capsule 11 3 Active Diclofenac Sodium 1 % gelIndications:M uscle spasm To apply to the affected area 2 times a day 100 g 3 Active famotidine (Pepcid) 20 MG tabletIndication s:Epigastric pain Take 1 tablet (20 mg) by mouth 2 times daily. 60 tablet 11 4 Active hydroCHLOROthiaz karlo (Microzide) 12.5 MG capsule TAKE ONE CAPSULE DAILY 30 capsule 5 4 Active acetaminophen (Tylenol 8 Hour) 650 MG ER tablet TAKE ONE TABLET EVERY 8 HOURS NEEDED 90 tablet 5 5 Active Active Problems Problem Noted Date Diagnosed Date Primary osteoarthritis involving multiple joints 09/16/2022 Benign prostatic hyperplasia with nocturia 12/05 Tubular adenoma of colon 10/06/2014 Benign prostatic hyperplasia 05/19/2014 Erectile dysfunction 04/25/2012 Hypercholesterolemia 04/25/2012 Hypertension 04/25/2012 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 Encounters Date Type Department Care Team Description 09/19/2024 9:45 AM EST Office Visit [facility] CHC MED & PEDS [address] [place] [address] Estrella Beck MD Hypercholesterolemia (Primary Dx); Primary hypertension; MIJARES (dyspnea on exertion) 09/19/2024 Travel 09/18/2024 Telephone [facility] MED & PEDS [address] [place] [address] Estrella Beck MD chart prep 08/09/2024 Telephone [facility] MED & PEDS [address] [place] [address] Amparo Puri MD 08/08/2024 1:40 PM EST Office Visit [facility] MED & PEDS [address] [place] [address] Amparo Puri MD Hematochezia (Primary Dx) 08/08/2024 Travel 08/08/2024 Refill [facility] MEDICINE [address] [place] [address] Estrella Beck MD 08/07/2024 Telephone [facility] MEDICINE [address] [place] [address] Estrella Beck MD Traige 08/01/2024 Telephone [facility] MEDICINE [address] [place] [address] Estrella Beck MD Nurse Triage from Last 3 Months Immunizations Name Administration Dates Next Due José Manuela Covid-19 Vaccine 12+ 11/29/2021,11/05/19 21,10/07/2020 Tdap 06/27/2016 Social History Tobacco Use Types Packs/Day Years Used Date Smoking Tobacco: Every Day Cigarettes 0.5 60 Passive Smoke Exposure: Current Smokeless Tobacco: Never Tobacco Cessation:Ready to Q uit: Not Asked; Counseling Given: Not Answered Housing Stability Answer Date Recorded What is your housing situation today? I have tawandalili fitzgerald 06/14/[address] you [...] Orientation Straight 05/30/2022 10 :15 AM EDT Last Filed Vital Signs Vital Sign Reading [...] Mass Index 27.78 09/19/2024 9:55 AM EST Plan of Treatment Health Maintenance Due Date Last Done Comments Depression Screening 1942 Alcohol/Substance Use Screening 1954 RSV Patients and Patients Aged 60 years or older (1 - 1-dose 75+ series) 2017 SDOH Screening 06/14/2024 06/14/2023 Influenza Vaccine (#1) 2025 Postp oned from 03/31/2024 (Patient Refused) COVID-19 Vaccine (4 - 2023-2 5 season) 2025 11/29/2021, 11/04/2020, 10/07/2020 Postponed from 03/31/2024 (Patient Refused) Hepatitis A Vaccines (1 of 2 - Risk 2-dose series) 09/19/2025 Postponed from (Patient Refused) Pneumococcal Vaccine: 50+ Years (1 of 2 - PCV) 09/19/2025 Postponed from 06/30 (Patient Refused) Tobacco Screening 09/19/2025 09/19/2024 Zoster Vaccines (1 of 2) 09/19/2025 Pos tponed from 1992 (Patient Refused) DTaP/Tdap/Td Vaccines (2 - T d or Tdap) 06/27/2026 06/27/2016 Lipid Panel 12/07/2026 12/07/2021 HIB Vaccines Aged Out No longer eligi ble based on patient's age to complete this topic HPV Vaccines Aged Out No longer eligi ble based on patient's age to complete this topic Hepatitis B Vaccines Aged Out No long er eligible based on patient's age to complete this topic IPV Vaccines Aged Out No longer eligi ble based on patient's age to complete this topic Meningococcal Vaccine Aged Out No bala raimundo eligible based on patient's age to complete this topic RSV under 20 months Aged Out No longe r eligible based on patient's age to complete this topic Rotavirus Vaccines Aged Out No longer eligible based on patient's age to complete this topic Procedures Procedure Name Priority Date/Time Associated Diagnosis Comments CBC WITH AUTO DIFFERENTIAL Routine 08/08/2024 2:28 PM EST Hematochezia LIPID PANEL, STANDARD Routine 12/07/2021 9:21 AM EDT from Last 3 Months or Most Recently Relevant to Health Maintenance Results * (ABNORMAL) CBC auto differential (08/08/2024 2:28 PM EST) White Blood Count 8.4 4.8 - 10.8 X10*3/uL [facility] Red Blood Count 5.18 4.60 - 5.80 X10*6/uL [facility] Hemoglobin 15.3 14.0 - 18.0 g/dl [facility] Hematocrit 47.0 42.0 - 52.0 % [facility] Mean Corpuscular Volume 90.7 80.0 - 98.0 fL [facility] Mean Corpuscular Hemoglobin 29.5 27.0 - 33.0 pg [facility] Mean Corpuscular HGB Conc 32.6 31.0 - 36.0 g/dl [facility] Red Cell Distribution Width 13.8 11.0 - 16.0 % [facility] Platelet Count 275 160 - 400 X10*3/uL [facility] Mean Platelet Volume 10.1 9.4 - 12.4 fL [facility] Neutrophils Percent Auto 56.5 45 - 73 % [facility] Imm Gran Pct Auto 0.5(H) 0.0 - 0.4 % [facility] Lymphocytes Percent Auto 21.9 20 - 40 % [facility] Monocytes Percent Auto 12.0(H) 2 - 11 % [facility] Eosinophils Percent Auto 8.1(H) 0 - 4 % [facility] Basophils Percent Auto 1.0 0 - 2 % [facility] NRBC Pct Auto 0.0 0.0 - 0.2 /100WBC [facility] Neutrophils Absolute Auto 4.7 2.0 - 8.3 x10*3/uL [facility] Imm Gran Abs Auto 0.04(H) 0.00 - 0.03 X10*3/uL [facility] Lymphocytes Absolute Auto 1.8 1.2 - 4.9 X10*3/uL [facility] Monocytes Absolute Auto 1.0 0.1 - 1.2 X10*3/uL [facility] Eosinophils Absolute Auto 0.7(H) 0.0 - 0.4 X10*3/uL [facility] Basophils Absolute Auto 0.1 0.0 - 0.2 X10*3/uL [facility] NRBC Abs Auto 0.000 0.0 - 0.012 X10*3/uL [facility] Blood Venous blood specimen / Unknown 08/08/2024 2:28 PM EST 08/08/2024 5:36 PM EST us Amparo Puri MD LAB BLOOD ORDERABLES Final Re sult [facility] [address] [place] [address] [phone] * (ABNORMAL) LIPID PANEL, STANDARD (12/07/2021 9:21 AM EDT) Chol/HDLC Ratio 4.9 <5.0 (calc) [facility] Cholesterol, Total 186 <200 mg/dL [facility] HDL Cholesterol 38(L) > OR = 40 mg/dL [facility] LDL Cholesterol 134(H) mg/dL (calc) [facility] Comment: Reference range: <100 ?? Desirable range <100 mg/dL for primary prevention; ?? <70 mg/dL for patients with CHD or diabetic patients ?? with > or = 2 CHD risk factors. ?? LDL-C is now calculated using the Seema ?? calculation, which is a validated novel method providing ?? better accuracy than the Friedewald equation in the ?? estimation of LDL-C. ?? Surinder AUGUSTIN et al. EITAN. 2013;310(19): 4077-7820 ?? (http://education.Bindo.Telepo/faq/MZM073) Non-HDL Cholesterol 148(H) <130 mg/dL (calc) [facility] Comment: For patients with diabetes plus 1 major ASCVD risk ?? factor, treating to a non-HDL-C goal of <100 mg/dL ?? (LDL-C of <70 mg/dL) is considered a therapeutic ?? option. Triglycerides 53 <150 mg/dL [facility] 12/07/2021 9:21 AM EDT Estrella Beck MD LAB BLOOD ORDERABLES Final Result [facility] [address] from Last 3 Months or Most Recently Relevant to Health Maintenance Insurance [facility] Care Teams Creative Arts Music Therapist Relationship Specialty Start Date End Date Estrella Beck MD [address] [place] [address] [place] PCP - General Internal Medicine 07/31/18
--- OUTSIDE RECORDS SUMMARY | 2024-09-19 11:59 | XMS_ITS | Encounter Summary ---
Author Organization [employer] Address [address] [facility] [address] [place] [address] Care Team Providers Care Correctional Maintenance Technician Name Role Phone Estrella Beck MD Primary Care Provider [phone] Encounter Details Date Type Department Care Team (Latest Contact Info) Description 09/19/2024 Travel Social History Tobacco Use Types Packs/Day Years [...] AM EDT documented as of this encounter Plan of Treatment Not on file documented as of this encounter Visit Diagnoses Not on filedocumented in this encounter Care Teams Correctional Maintenance Technician Relationship Specialty Start Date End Date Estrella Beck MD [address] [place] [address] PCP - General Internal Medicine 07/31/18 documented as of this encounter
--- OUTSIDE RECORDS SUMMARY | 2024-09-19 11:59 | XMS_ITS | Encounter Summary ---
Author Organization [employer] Address [address] [facility] [address], [place] [address] Care Team Providers Care Bookkeeping Machine Mechanic Name Role Phone Estrella Beck MD Primary Care Provider [phone] Reason for Visit * Reason Onset Date Comments chart prep 09/18/2024 Encounter Details Date Type Department Care Team ([facility] st Contact Info) Description 09/18/2024 Telephone [facility] CHC MED & PEDS [address] [place] [address] Estrella Beck MD [address] [place] [address] chart prep Social History Tobacco Use Types Packs/Day Years [...] encounter Miscellaneous Notes * Telephone Encounter - Riki June [place] - 09/18/2024 4:12 PM EST Chart Prep Labs: done Images: done Vaccines due: yes Referrals: pending appt Screenings: Overdue care gaps: Sbirt, SDOH, PHQ-9 documented in this encounter Plan of Treatment Not on file documented as of this encounter Visit Diagnoses Not on filedocumented in this encounter Care Teams Bookkeeping Machine Mechanic Relationship Specialty Start Date End Date Estrella Beck MD [address] [place] [id number] PCP - General Internal Medicine 07/31/18 documented as of this encounter
[2024-09-19 14:12] LABS: MANUAL DIFF FLAG NO
[2024-09-19 14:19] LABS: Basophils Absolute Auto 0.1 X10*3/uL (0.0-0.2); Eosinophils Percent Auto 11.7 % (0-4); Hemoglobin 15.6 g/dl (14.0-18.0); Imm Gran Abs Auto 0.03 X10*3/uL (0.00-0.03); Imm Gran Pct Auto 0.4 % (0.0-0.4); Lymphocytes Absolute Auto 1.6 X10*3/uL (1.2-4.9); Lymphocytes Percent Auto 19.7 % (20-40); Mean Corpuscular HGB Conc 33.2 g/dl (31.0-36.0); Mean Corpuscular Hemoglobin 29.9 pg (27.0-33.0); Mean Corpuscular Volume 90.2 fL (80.0-98.0); Mean Platelet Volume 10.1 fL (9.4-12.4); Monocytes Absolute Auto 1.1 X10*3/uL (0.1-1.2); Monocytes Percent Auto 12.9 % (2-11); Neutrophils Absolute Auto 4.4 x10*3/uL (2.0-8.3); Neutrophils Percent Auto 54.3 % (45-73); Platelet Count 236 X10*3/uL (160-400); Red Blood Count 5.21 X10*6/uL (4.60-5.80); White Blood Count 8.1 X10*3/uL (4.8-10.8)
[2024-09-19 14:49] LABS: Alanine Aminotransferase 21 U/L (0-40); Albumin Level 3.8 g/dL (3.5-5.0); Alkaline Phosphatase 77 U/L (39-117); Anion Gap 9 (12-20); Aspartate Amino Transferase 29 U/L (5-37); Bilirubin Total 0.6 mg/dL (0.0-1.0); Blood Urea Nitrogen 18 mg/dL (9-16); Calcium 9.6 mg/dL (8.4-10.2); Carbon Dioxide 30 mmol/L (22-29); Chloride 103 mmol/L (96-108); Cholesterol 188 mg/dL (<200); Estimated Glomerular Filt Rate 56; Glucose Random 82 mg/dL (60-115); HDL Cholesterol 39 mg/dL (>40); LDL Cholesterol Calculated 132 mg/dL (<100); Sodium 137 mmol/L (135-145); Triglycerides 87 mg/dL (<150)
[2024-09-19 14:50] LABS: TSH reflex Free T4 1.93 uIU/mL (0.32-4.0)
== END 2024-09-19 10:51 | disposition home or self-care (01) ==
LOC: HO.CHCLDS 10:50
PROVIDERS: Visit Provider Internal Medicine
DX: E78.00 Pure hypercholesterolemia, unspecified (principal); I10 Essential (primary) hypertension
CPT/HCPCS: 36415; 80053; 80061; 84443; 85025

== ENCOUNTER 2024-10-03 09:56 | Outpatient (AMB) | payer OTHER, SELFPAY ==
--- NOTE | 2024-10-03 09:58 | A.OFFVIS_ITS ---
Vital Signs 10/03/24 10:03 10/03/24 10:50 Height 5 ft 5 in Weight 168 lb BMI 28.0 BP 152/98 H 140/87 H Blood Pressure Location Lt brachial Lt brachial Position Sitting Sitting Pulse 80 70 Pulse Oximetry (%) 98 Oxygen Delivery Method Room Air Intake Visit Reasons: Hematochezia Intake Note: New patient consult for Hematochezia. Fannie sierra osvaldo was 02/03/2021. Patient denies any GI issues. Customer Care Agent Required: Yes Customer Care Agent Name: Donn Leung LM. Accompanied by: Self / Same As Patient Allergies aspirin [ASPIRIN] Allergy (Mild, Verified 10/03/24 09:58) BLEEDING diclofenac Allergy (Unknown, Verified 10/03/24 09:58) unsure if this is accurate Medication List - Last Reconciled 10/03/24 by Soila Allen MD acetaminophen ER 650 mg PO Q8H PRN finasteride (Proscar) 5 mg PO DAILY 90 days hydrochlorothiazide 12.5 mg PO DAILY tamsulosin 0.4 mg PO DAILY 90 days HPI HPI Hematochezia: Details: GI clinic visit for this 84 year old Congolese-speaking male referred for evaluation of hematochezia TODAY'S VISIT: [facility] Schedule Clerk, Tito Pt had hematochezia lasting for 3-4 weeks from Jun, 2024 to Jul, 2024. Blood was bright red and separate from the stool Pt denies any rectal/anal pain. Denies recent change in bowel habits - constipation or diarrhea Patient complains of occasional heartburn (less than once a month) and takes baking soda with relief of symptoms He denies symptoms of dysphagia, nausea, vomiting, change in appetite or weight. Pt smokes 5-7 cigg a day and quitted drinking 7 yrs ago. Denies recent change in bowel habits, constipation, diarrhea, black stools. Patient denies major cardiac or pulmonary problems, loud snoring or sleep apnea Denies problems with anesthesia in the past. Denies being on chronic anticoagulation. Patient denies known family history of colon polyps, colon cancer or other GI malignancies. LABS IN Wishdates : Reviewed IMAGING STUDIES: No recent GI imaging studies ENDOSCOPIC STUDIES: 11/2020 EGD AND COLON SHOWED: Endoscopy Findings: ESOPHAGUS: focal esophagitis at GE junction STOMACH: Nodular gastritis DUODENUM: A 1 cms ulcer in the floor of the bulb with surrounding edematous fold/ 1.5 to 2 cms benign appearing nodule - biopsied. Colonoscopy Findings: Six small to medium sized polyps removed Moderate to severe diverticulosis seen in the entire colon Moderate hemorrhoids on retroflexed exam - likely source for rectal bleeding. Plan: Patient has an appointment on 01/07/21 in the GI Clinic with CADY Meeks . Repeat Colonoscopy interval based on path results - in 3 years if polyps are adenomatous and 10 years if polyps are hyperplastic. Above findings were reviewed with the patient and colon polyps and diverticulosis handouts were given in the discharge area BIOPSIES SHOWED: A. Stomach, biopsy: Antral- type mucosa within normal limits; no Helicobacter organisms seen. B. Duodenum, bulb nodule: - Duodenal mucosa with chronic inactive inflammation. - Small detached fragment of inflamed and necrotic mucosa. C. Stomach, body, biopsy: Oxyntic mucosa with mild chronic inactive inflammation; no Helicobacter organisms seen. D. Colon, ascending, polypectomies: Colonic mucosa with mild surface hyperplastic and inflammatory changes. E. Colon, transverse, polypectomy: Inflammatory polyp with focal granulomatous inflammation; no microorganisms seen. See comment. F. Colon, transverse at 60 cm, polypectomy: Colonic mucosa with mild surface hyperplastic changes. G. Colon, descending, polypectomy: Hyperplastic mucosal polyp PFSH Medical History BPH (benign prostatic hyperplasia) HTN (hypertension) Early satiety Surgical History History of esophagogastroduodenoscopy (EGD) H/O colonoscopy History of prostate surgery Family History Family/Other Prostate cancer Cancer Social History Household Members: Family and Children Alcohol intake: current Alcohol intake frequency: does not drink Patient Tobacco Use Status: Current everyday Tobacco user Tobacco use type: Cigarette Cigarettes Per Day: 8 Review of Systems Const Denies fever(s), Denies headache(s) and Denies weight loss Eyes Denies eye discharge and Denies irritation ENT Reports Normal hearing present, Denies dysphagia, Denies dizziness and Denies headache(s) Card Denies chest pain, Denies leg edema and Denies dyspnea on exertion Resp Denies cough, Denies dyspnea on exertion and Denies wheezing GI Denies abdominal pain, Denies change in bowel habits, Denies dysphagia and De nies heartburn Denies dysuria Musc Denies back pain and Denies arthralgias Skin/Breast Denies pruritus, Denies rash and Denies jaundice Neuro Reports Normal hearing present, Denies Abnormal speech present, Denies dizziness, Denies headache(s) and Denies seizure-like activity Psych Denies anxiety, Denies depression and Denies panic attacks Endo Denies cold intolerance, Denies flushing and Denies heat intolerance Bret/Lymph Denies easy bleeding and Denies easy bruising Aller/Immun Denies wheezing Physical Exam Vital Signs: Last Vital Signs Pulse 70 10/03/24 10:50 BP 140/87 H 10/03/24 10:50 Pulse Ox 98 10/03/24 10:03 Oxygen Delivery Method Room Air 10/03/24 10:03 BMI result Body Mass Index 28.0 Const General: healthy appearing and no acute distress Nutritional Appearance: overweight Orientation/consciousness: patient oriented x3 Limitations: language barrier HEENT Head: Yes normal to inspection Ears: hearing grossly normal bilaterally Mouth: Normal oral and palatal mucosa present Eyes Sclerae: sclerae normal Pupils: Equal, round and reactive pupils present Neck Neck: Yes normal visual inspection Chest Chest palpation & inspection: normal inspection of the chest Resp Effort & Inspection: normal respiratory effort Auscultation: clear to auscultation bilaterally Cardio Palpation: normal PMI Rate: regular rate Rhythm: regular rhythm Heart sounds: S1 normal heart sound present, S2 normal heart sound present and no murmurs GI Palpation (GI): Soft to palpation, nontender and No hepatosplenomegaly present Auscultation: normal bowel sounds Rectal Exam - Male: Yes deferred Skin General skin exam: no rashes or lesions noted Neuro General: patient oriented x3, gait normal and moves all extremities Cranial nerves: Yes Equal, round and reactive pupils present and Yes Normal hearing present Speech: No Abnormal speech present Psych Appearance: grossly normal Mental Status: mental status grossly normal Assessment & Plan Assessment & Plan (1) Acid reflux: Code(s): K21.9 - Gastro-esophageal reflux disease without esophagitis Category: Medical (2) Diverticulosis of colon: Comment: high-fiber diet, avoid constipation Code(s): K57.30 - Diverticulosis of large intestine without perforation or abscess without bleeding Category: Medical (3) Rectal bleeding: Comment: Likely hemorrhoidal, history of internal, Maintain a high-fiber diet-colonoscopy Code(s): K62.5 - Hemorrhage of anus and rectum Category: Medical Plan 84 year old Congolese-speaking male with hypertension and BPH. Pt is known to me from past evaluation with an EGD and a Colonoscopy in 11/2020 Colonoscopy showed moderate to severe diverticulosis in the entire colon and moderate hemorrhoids and six small to medium sized hyperplastic polyps were removed Pt had hematochezia lasting for 3-4 weeks from Jun, 2024 to Jul, 2024. Blood was bright red and separate from the stool Pt denies any further bleeding over the past month Patient was advised further evaluation with colonoscopy - he would like to monitor his symptoms for now and defer colonoscopic evaluation. Patient is agreeable to scheduling a follow-up in 6 months - scheduled 04/03/25 Coding Level of Care Code New Pt Level 4 (46440) Diagnoses Acid reflux K21.9 Diverticulosis of colon K57.30 Rectal bleeding K62.5 Time Spent (min) 22
[2024-10-03 10:03] VITALS: BP 152/98; PULSE 80; O2SAT 98; BMI 28.0
[2024-10-03 10:50] VITALS: BP 140/87; PULSE 70
--- OUTSIDE RECORDS SUMMARY | 2024-10-03 11:35 | XMS_ITS | Data Portability ---
Author Organization [facility] - [employer] Address [address] [place] [phone] Assessment No assessment recorded. Plan of Treatment [...] % 99 % 18 /min 98.2 [degF] 41672.4 56 g 74 /min 154 mm[Hg] 88 mm[Hg] Not Available [facility] - production 4 17:54:08 Social History None recorded. Functional Status None recorded. Mental Status None recorded. Family History Nothing Reported. Medical History No medical history recorded. Past Encounters Encounter ID Performer Location Encounter Start Date Encounter Closed Date Diagnosis/Indication Diagnosis SNOMED-CT Code Diagnosis ICD10 Code Diagnosis Note [id number] Sherin Sow MD Main - [facility] [address] [place] [address] 08/09/2023 17:53:59 08/10/2023 09:57:09 Localized eruption of skin [id number] R21 83 year old male being evaluated [...] assessment and plan as documented by the vice president risk management. I provided real-time medical direction for this [...] Mcdaniels Member ID Guarantor Name 08/09/2023 1 [facility] - DOS ON OR AFTER 2022 - DUAL ELIGIBLE - DETENTION OPTIONS AND ONE CARE (MEDICARE REPLACEMENT/ADV ANTAGE - HMO) Isauro Tiwari [id number] Isauro Tiwari Notes Date Note Type Note [...] .................. .................. .................. .................. .................. .................. ............... 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 Denies cp sob dizziness headaches pain nausea vomiting or diarrhea. Baseline vitals assessed. Pictures taken of rash and uploaded. [facility] contacted and advised to make appt with pcp for further testing. Pt education on signs indicating the ER. 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 .................. .................. .................. .................. .................. .................. ............... Disposition: Fulfilled Sherin Sow MD [address] [place] [address],[address], [place], [address], MARIELLE PARK 08/09/2023 20:56:44
--- OUTSIDE RECORDS SUMMARY | 2024-10-03 11:35 | XMS_ITS | Encounter Summary ---
Author Organization [employer] Address [address] [place] [address] [address] Care Team Providers Care Internet Researcher Name Role Phone Estrella Beck MD Primary Care Provider [phone] Reason for Referral * Imaging (Routine) - Pending Review Specialty Diagnoses / Procedures Referred By Willy t Referred To Contact Cardiology Diagnoses Primary hypertension MIJARES (dyspnea on exertion) Procedures Transthoracic Echo (TTE) Complete Estrella Beck MD [address] [place] [address] Phone: tel: fax: [address] Phone: tel: fax: Referral ID Status Reason Start Date Expiration Date Visits Requested Visits Authorized [id number] Pending Review Perform Procedure 09/19/2024 09/19/2025 1 1 Reason for Visit * Reason Comments Hypertension Hyperlipidemia Encounter Details Date Type Department Care Team (Latest Contact Info) Description 09/19/2024 9:45 AM EST Office Visit [facility] [address], [place] [phone] Estrella Beck MD [address], [place] [phone] Hypercholesterolemia (Primary Dx); Primary hypertension; MIJARES (dyspnea on exertion); Dietary counseling; Exercise counseling; Overweight Social History Tobacco Use Types Packs/Day Years [...] 9:55 AM EST documented in this encounter Progress Notes * Estrella Beck MD - 09/19/2024 9:45 AM EST Subjective Patient ID: Isauro Tiwari is a 84 y.o. male who presents for Hypertension and Hyperlipidemia. Hypertension Pertinent negatives include no headaches or palpitations. Hyperlipidemia History of hypertension. Patient claims compliance to his current medication. No reported side effect. He denies any acute events since the last office visit. Concerned about shortness of breath when going up the stairs for the last year or so. No recent worsening. No associated lower limb edema. Patient continues to smoke about 5 to 6 cigarettes a day. He would like to quit on his own. 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 60 tablet 11 hydroCHLOROthiazide (Microzide) 12.5 MG capsule TAKE ONE CAPSULE DAILY 30 capsule 5 tamsulosin (Flomax) 0.4 MG 24 hr capsule Take 1 capsule (0.4 mg) by mouth in the morning. 30 capsule 11 No current facility-administered medications on file prior to visit. Allergies Allergen Reactions Aspirin Other reaction(s): unspecified Review of Systems Constitutional: Negative for activity change, appetite change, chills and diaphoresis. HENT: Negative for dental problem, drooling and ear discharge. Eyes: Negative for pain and itching. Respiratory: Negative for cough, choking and chest tightness. Cardiovascular: Negative for palpitations and leg swelling. Gastrointestinal: Negative for abdominal pain, anal bleeding and blood in stool. Endocrine: Negative for cold intolerance and heat intolerance. Genitourinary: Negative for flank pain, frequency and genital sores. Musculoskeletal: Negative for back pain. Neurological: Negative for light-headedness, numbness and headaches. Psychiatric/Behavioral: Negative for agitation, confusion and decreased concentration. Objective BP (!) 142/78 Pulse 79 Temp 97.7 ??F (36.5 ??C) (Oral) Resp 20 Ht 5' 5.06 (1.653 m) Wt 167 lb 4 oz (75.9 kg) SpO2 97% BMI 27.78 kg/m?? Physical Exam Constitutional: General: He is not in acute distress. Appearance: Normal appearance. He is not ill-appearing, toxic-appearing or diaphoretic. Cardiovascular: Rate and Rhythm: Normal rate. Pulses: Normal pulses. Heart sounds: Murmur heard. Systolic murmur is present. Pulmonary: Effort: Pulmonary effort is normal. Breath sounds: Normal breath sounds. Abdominal: Palpations: Abdomen is soft. Neurological: General: No focal deficit present. Mental Status: He is alert. Psychiatric: Mood and Affect: Mood normal. Assessment/Plan Diagnoses and all orders for this visit: Hypercholesterolemia Comments: Continue with the low-cholesterol diet Repeat lipid panel prior to the next visit. Orders: - CBC auto differential; Future - Comprehensive Metabolic Panel; Future - TSH W/Reflex to FT4; Future - Lipid Panel, Standard; Future Primary hypertension Comments: Mild elevation of blood pressure Patient is to intensify the DASH diet Smoking cessation as discussed. Orders: - CBC auto differential; Future - Comprehensive Metabolic Panel; Future - TSH W/Reflex to FT4; Future - Lipid Panel, Standard; Future - Transthoracic Echo (TTE) Complete; Future MJIARES (dyspnea on exertion) Comments: Echocardiogram ordered Patient will be contacted with results and we will consider a referral to cardiology as needed. Orders: - Transthoracic Echo (TTE) Complete; Future Dietary counseling Exercise counseling Overweight Dietary Recommendations: Fruits, vegetables, whole grains, protein foods, and fat-free or low-fat dairy products are healthychoices. Eat different types of protein foods in your diet. This can include seafood, lean meats, poultry, beans, peas, lentils, nuts, seeds, soy products, and eggs. Limit foods and beverages higher in added sugars, saturated fat, and sodium. Exercise Recommendations: At least 150 minutes of moderate-intensity physical activity per week, or an equivalent combinationof moderate- and vigorous-intensity activity documented in this encounter Plan of Treatment Upcoming Encounters Date Type Department Care Team ([facility] st Contact Info) Description 12/25/2024 10:30 AM EDT Office Visit [facility] MED [facility] P[facility]S [address] [place] [address] Estrella Beck MD [address], [place] [phone] Scheduled Orders Name Type Priority Associated Diagnoses Order Schedule Transthoracic Echo (TTE) Complete Echocardiography Routine Primary hypertension MIJARES (dyspnea on exertion) Expected: 09/19/2024 (Approximate), Expires: 09/19/2026 documented as of this encounter Procedures Procedure Name Priority Date/Time Associated Diagnosis Comments TSH W/REFLEX TO FT4 Routine 09/19/2024 1 0:52 AM EST Hypercholesterolemia Primary hypertension CBC WITH AUTO DIFFERENTIAL Routine 09/19/2024 10:52 AM EST Hypercholesterolemia Primary hypertension LIPID PANEL, STANDARD Routine 09/19/2024 10:52 AM EST Hypercholesterolemia Primary hypertension COMPREHENSIVE METABOLIC PANEL Routine 09/19/2024 10:52 AM EST Hypercholesterolemia Primary hypertension documented in this encounter Results * (ABNORMAL) Lipid Panel, Standard (09/19/2024 10:52 AM EST) Triglycerides 87 <150 mg/dL [facility] Comment:Desirable Triglyceri de: less than 150 mg/dLBorderline High Triglyceride 150-199 mg/dLHigh Triglyceride: 200-499 mg/dLVery High Triglyceride: greater than or equal to 5OO mg/dL Cholesterol 188 <200 mg/dL [facility] Comment:Desirable Cholestero l: less than 200 mg/dLBorderline High Cholesterol: 200-239 mg/dLHigh Cholesterol: greater than 239 mg/dL LDL Cholesterol Calculated 132(H) <100 mg/dL [facility] Comment:Desirable LDL: less than 100 mg/dLNear Optimal/Above Optimal LDL: 110- 129 mg/dLBorderline High LDL: 130-159 mg/dLHigh LDL: 160-189 mg/dLVery High LDL: greater than or equal to 190 mg/dL HDL Cholesterol 39(L) >40 mg/dL [facility] Comment:Desirable HDL: great er than 40 mg/dL Note: This HDL assay may give artificially low results in patients with liver disease. Blood Venous blood specimen / Unknown 09/19/2024 10:52 AM EST 09/19/2024 2:06 PM EST us Estrella Beck MD LAB BLOOD ORDERABLES Final Result Performing Organization Address City/[facility]/ZIP Co de Phone Number [facility] [address] [place] [phone] * TSH W/Reflex to FT4 (09/19/2024 10:52 AM EST) TSH reflex Free T4 1.93 0.32 - 4.0 uIU/mL [facility] Blood Venous blood specimen / Unknown 09/19/2024 10:52 AM EST 09/19/2024 2:06 PM EST us Estrella Beck MD LAB BLOOD ORDERABLES Final Result Performing Organization Address [facility] Co de Phone Number [facility] [address] [place] [phone] * (ABNORMAL) Comprehensive Metabolic Panel (09/19/2024 10:52 AM EST) Sodium 137 135 - 145 mmol/L [facility] Potassium 5.0 3.3 - 5.1 mmol/L [facility] Comment:Slight Hemolysis.Int erpret result with caution. Chloride 103 96 - 108 mmol/L [facility] Carbon Dioxide 30(H) 22 - 29 mmol/L [facility] Anion Gap 9(L) 12 - 20 [facility] Urea Nitrogen (BUN) 18(H) 9 - 16 mg/dL [facility] Creatinine, Serum 1.23 0.5 - 1.4 mg/dL [facility] Estimated Glomerular Filt Rate 56 [facility] Comment:Chronic Kidney Disea se: Estimated GFR < 60 mL/min/1.21e7Kanpvm Kidney Disease: Estimated GFR < 15 mL/min/1.73m2 Glucose 82 60 - 115 mg/dL [facility] Calcium 9.6 8.4 - 10.2 mg/dL [facility] Bilirubin, Total 0.6 0.0 - 1.0 mg/dL [facility] Aspartate Amino Transferase 29 5 - 37 U/L [facility] Comment:Slight Hemolysis.Int erpret result with caution. Alanine Aminotransferase 21 0 - 40 U/L [facility] Total Protein 8.0 6.5 - 8.0 g/dL [facility] Albumin Level 3.8 3.5 - 5.0 g/dL [facility] Alkaline Phosphatase 77 39 - 117 U/L [facility] Blood Venous blood specimen / Unknown 09/19/2024 10:52 AM EST 09/19/2024 2:06 PM EST us Estrella Beck MD LAB BLOOD ORDERABLES Final Result [facility] [address] [place] [phone] * (ABNORMAL) CBC auto differential (09/19/2024 10:52 AM EST) White Blood Count 8.1 4.8 - 10.8 X10*3/uL [facility] Red Blood Count 5.21 4.60 - 5.80 X10*6/uL [facility] Hemoglobin 15.6 14.0 - 18.0 g/dl [facility] Hematocrit 47.0 42.0 - 52.0 % [facility] Mean Corpuscular Volume 90.2 80.0 - 98.0 fL [facility] Mean Corpuscular Hemoglobin 29.9 27.0 - 33.0 pg [facility] Mean Corpuscular HGB Conc 33.2 31.0 - 36.0 g/dl [facility] Red Cell Distribution Width 14.0 11.0 - 16.0 % [facility] Platelet Count 236 160 - 400 X10*3/uL [facility] Mean Platelet Volume 10.1 9.4 - 12.4 fL [facility] Neutrophils Percent Auto 54.3 45 - 73 % [facility] Imm Gran Pct Auto 0.4 0.0 - 0.4 % [facility] Lymphocytes Percent Auto 19.7(L) 20 - 40 % [facility] Monocytes Percent Auto 12.9(H) 2 - 11 % [facility] Eosinophils Percent Auto 11.7(H) 0 - 4 % [facility] Basophils Percent Auto 1.0 0 - 2 % [facility] NRBC Pct Auto 0.0 0.0 - 0.2 /100WBC [facility] Neutrophils Absolute Auto 4.4 2.0 - 8.3 x10*3/uL [facility] Imm Gran Abs Auto 0.03 0.00 - 0.03 X10*3/uL [facility] Lymphocytes Absolute Auto 1.6 1.2 - 4.9 X10*3/uL [facility] Monocytes Absolute Auto 1.1 0.1 - 1.2 X10*3/uL [facility] Eosinophils Absolute Auto 1.0(H) 0.0 - 0.4 X10*3/uL [facility] Basophils Absolute Auto 0.1 0.0 - 0.2 X10*3/uL [facility] NRBC Abs Auto 0.000 0.0 - 0.012 X10*3/uL [facility] Blood Venous blood specimen / Unknown 09/19/2024 10:52 AM EST 09/19/2024 2:06 PM EST Estrella Beck MD LAB BLOOD ORDERABLES Final Result Performing Organization Address City/State/[facility] Co de Phone Number [facility] [address] [place] [phone] documented in this encounter Visit Diagnoses Diagnosis Hypercholesterolemia- Primary Pure hypercholesterolemia Primary hypertension Unspecified essential hypertension MIJARES (dyspnea on exertion) Other dyspnea and respiratory abnormality Dietary counseling Dietary surveillance and counseling Exercise counseling Overweight documented in this encounter Care Teams Internet Researcher Relationship Specialty Start Date End Date Estrella Beck MD [address] [place] [phone] PCP - General Internal Medicine 07/31/18 documented as of this encounter
--- OUTSIDE RECORDS SUMMARY | 2024-10-03 11:35 | XMS_ITS | Encounter Summary ---
Author Organization [employer] Address [address] [facility] [address] [place] [address] Care Team Providers Care Wash House Supervisor Name Role Phone Estrella Beck MD Primary Care Provider [phone] Encounter Details Date Type Department Care Team (Late st Contact Info) Description 09/19/2024 Telephone [facility] [address] [place], [place] [phone] Estrella Beck MD [address] [place], [place] [phone] Social History Tobacco Use Types Packs/Day Years [...] encounter Miscellaneous Notes * Telephone Encounter - Delfina De León RN - 09/19/2024 3:56 PM EST TC placed to pt via S quantitative associate (Cecy ID#[id number]) to inform of below PCP message. No answer, LVMto call office back and ask to speak to the nurses. ----- Message from Estrella Beck MD sent at 09/19/2024 3:22 PM EST ----- Please call. Labs reviewed. Acceptable except for mild elevation of cholesterol. Please advise patient to keep himself well-hydrated and to be on a low- cholesterol diet and keep as active as tolerated. documented in this encounter Plan of Treatment Upcoming Encounters Date Type Department Care Team (Late st Contact Info) Description 12/25/2024 10:30 AM EDT Office Visit [facility] [address] [place] [address] Estrella Beck MD [address] [place] [address] documented as of this encounter Visit Diagnoses Not on filedocumented in this encounter Care Teams Wash House Supervisor Relationship Specialty Start Date End Date Estrella Beck MD [address] [place] [address] PCP - General Internal Medicine 07/31/18 documented as of this encounter
--- OUTSIDE RECORDS SUMMARY | 2024-10-03 11:35 | XMS_ITS | Encounter Summary ---
Author Organization [employer] Address [address] [place] [address] Care Team Providers Care Speech Language Pathologist Assistant Name Role Phone Estrella Beck MD Primary Care Provider [phone] Encounter Details Date Type Department Care Team [...] as of this encounter Plan of Treatment Upcoming Encounters Date Type Department Care Team (Late st Contact Info) Description 12/25/2024 10:30 AM EDT Office Visit [facility] P[facility]S [address] [place] [address] Estrella Beck MD [address] [place] [address] documented as of this encounter Visit Diagnoses Not on filedocumented in this encounter Care Teams Speech Language Pathologist Assistant Relationship Specialty Start Date End Date Estrella Beck MD [address] [place] [address] PCP - General Internal Medicine 07/31/18 documented as of this encounter
--- OUTSIDE RECORDS SUMMARY | 2024-10-03 11:35 | XMS_ITS | Encounter Summary ---
Author Organization [employer] Address [address] [facility] [address] [address] Care Team Providers Care Program Support Clerk Name Role Phone Estrella Beck MD Primary Care Provider [phone] Reason for Visit * Reason Onset Date Comments chart prep 09/18/2024 Encounter Details Date Type Department Care Team ([facility] st Contact Info) Description 09/18/2024 Telephone [facility] MED & PEDS [address] [place] [address] Estrella Beck MD [address] [place] [address] chart prep Social History Tobacco Use Types [...] Description 12/25/2024 10:30 AM EDT Office Visit [facility] MED & PEDS [address] [place] [address] Estrella Beck MD [address] [place] [address] documented as of this encounter Visit Diagnoses Not on filedocumented in this encounter Care Teams Program Support Clerk Relationship Specialty Start Date End Date Estrella Beck MD [address] [place] [address] PCP - General Internal Medicine 07/31/18 documented as of this encounter
--- OUTSIDE RECORDS SUMMARY | 2024-10-03 11:35 | XMS_ITS | Clinical Summary ---
Author Organization [employer] Address [address] [facility] 7t [place] [address] Care Team Providers Care Fire Extinguisher Charger Name Role Phone Estrella Beck MD Primary Care Provider [phone] Allergies Active Allergy Reactions Criticality Noted Date [...] Description 09/19/2024 9:45 AM EST Office Visit [facility] MED & PEDS [address] [place] [address] Estrella Beck MD Hypercholesterolemia (Primary Dx); Primary hypertension; MIJARES (dyspnea on exertion); Dietary counseling; Exercise counseling; Overweight 09/19/2024 Telephone [facility] [address] [place] [address] Estrella Beck MD 09/19/2024 Travel 09/18/2024 Telephone [facility] MED & PEDS [address] [place] [address] Estrella Beck MD chart prep 08/09/2024 Telephone [facility] MED & PED[facility] [address] [place] [address] Amparo Puri MD 08/08/2024 1:40 PM EST Office Visit [facility] MED & PEDS [address] [place] [address] Amparo Puri MD Hematochezia (Primary Dx) 08/08/2024 Travel 08/08/2024 Refill [facility] [address] [place] [address] Estrella Beck MD 08/07/2024 Telephone [facility] [address] [place] [address] Estrella Beck MD Traige 08/01/2024 Telephone [facility] [address] [place] [address] Estrella Beck MD Nurse Triage from Last 3 Months Immunizations Name Administration Dates Next Due Moderna Covid-19 Vaccine 12+ 11/29/2021,11/05/19 21,10/07/2020 Tdap 06/27/2016 [...] 09/19/2024 9:55 AM EST Plan of Treatment Upcoming Encounters Date Type Department Care Team (Late st Contact Info) Description 12/25/2024 10:30 AM EDT Office Visit [facility] MED & PEDS [address] [place] [address] Estrella Beck MD [address] [place] [address] Health Maintenance Due Date Last Done Comments [...] d or Tdap) 06/27/2026 06/27/2016 Lipid Panel 09/19/2029 09/19/2024, 12/07/2021 HIB Vaccines Aged Out No longer [...] Procedure Name Priority Date/Time Associated Diagnosis Comments LIPID PANEL, STANDARD Routine 09/19/2024 10:52 AM EST Hypercholesterolemia Primary hypertension TSH W/REFLEX TO FT4 Routine 09/19/2024 1 0:52 AM EST Hypercholesterolemia Primary hypertension COMPREHENSIVE METABOLIC PANEL Routine 09/19/2024 10:52 AM EST Hypercholesterolemia Primary hypertension CBC WITH AUTO DIFFERENTIAL Routine 09/19/2024 10:52 AM EST Hypercholesterolemia Primary hypertension CBC WITH AUTO DIFFERENTIAL Routine 08/08/2024 2:28 PM EST Hematochezia from Last 3 Months Results * TSH W/Reflex to FT4 (09/19/2024 10:52 AM EST) TSH reflex Free T4 1.93 0.32 - 4.0 uIU/mL [facility] Blood Venous blood specimen / Unknown 09/19/2024 10:52 AM EST 09/19/2024 2:06 PM EST us Estrella Beck MD LAB BLOOD ORDERABLES Final Result [facility] [address] [place] [phone] * (ABNORMAL) CBC auto differential (09/19/2024 10:52 AM EST) Only the most recent of2 resultswithin the time period is included. White Blood Count 8.1 4.8 - 10.8 X10*3/uL [facility] Red Blood Count 5.21 4.60 - 5.80 X10*6/uL [facility] Hemoglobin 15.6 14.0 - 18.0 g/dl [facility] Hematocrit 47.0 42.0 - 52.0 % [facility] Mean Corpuscular Volume 90.2 80.0 - 98.0 fL [facility] Mean Corpuscular Hemoglobin 29.9 27.0 - 33.0 pg [facility] Mean Corpuscular HGB Conc 33.2 31.0 - 36.0 g/dl [facility] Red Cell Distribution Width 14.0 11.0 - 16.0 % [facility] Platelet Count 236 160 - 400 X10*3/uL [facility] Mean Platelet Volume 10.1 9.4 - 12.4 fL [facility] Neutrophils Percent Auto 54.3 45 - 73 % [facility] Imm Gran Pct Auto 0.4 0.0 - 0.4 % [facility] Lymphocytes Percent Auto 19.7(L) 20 - 40 % [facility] Monocytes Percent Auto 12.9(H) 2 - 11 % [facility] Eosinophils Percent Auto 11.7(H) 0 - 4 % [facility] Basophils Percent Auto 1.0 0 - 2 % [facility] NRBC Pct Auto 0.0 0.0 - 0.2 /100WBC [facility] Neutrophils Absolute Auto 4.4 2.0 - 8.3 x10*3/uL [facility] Imm Gran Abs Auto 0.03 0.00 - 0.03 X10*3/uL [facility] Lymphocytes Absolute Auto 1.6 1.2 - 4.9 X10*3/uL [facility] Monocytes Absolute Auto 1.1 0.1 - 1.2 X10*3/uL [facility] Eosinophils Absolute Auto 1.0(H) 0.0 - 0.4 X10*3/uL [facility] Basophils Absolute Auto 0.1 0.0 - 0.2 X10*3/uL [facility] NRBC Abs Auto 0.000 0.0 - 0.012 X10*3/uL [facility] Blood Venous blood specimen / Unknown 09/19/2024 10:52 AM EST 09/19/2024 2:06 PM EST us Estrella Beck MD LAB BLOOD ORDERABLES Final Result [facility] [address] [place] [address] [phone] * (ABNORMAL) Lipid Panel, Standard (09/19/2024 10:52 AM EST) Triglycerides 87 <150 mg/dL [facility] Comment:Desirable Triglyceri de: less than 150 mg/dLBorderline High Triglyceride 150-199 mg/dLHigh Triglyceride: 200-499 mg/dLVery High Triglyceride: greater than or equal to 5OO mg/dL Cholesterol 188 <200 mg/dL [facility] Comment:Desirable Cholestero l: less than 200 mg/dLBorderline High Cholesterol: 200-239 mg/dLHigh Cholesterol: greater than 239 mg/dL LDL Cholesterol Calculated 132(H) <100 mg/dL [facility] Comment:Desirable LDL: less than 100 mg/dLNear Optimal/Above Optimal LDL: 110- 129 mg/dLBorderline High LDL: 130-159 mg/dLHigh LDL: 160-189 mg/dLVery High LDL: greater than or equal to 190 mg/dL HDL Cholesterol 39(L) >40 mg/dL [facility] Comment:Desirable HDL: great er than 40 mg/dL Note: This HDL assay may give artificially low results in patients with liver disease. Blood Venous blood specimen / Unknown 09/19/2024 10:52 AM EST 09/19/2024 2:06 PM EST us Estrella Beck MD LAB BLOOD ORDERABLES Final Result [facility] [address] [place] [address] [phone] * (ABNORMAL) Comprehensive Metabolic Panel (09/19/2024 10:52 AM EST) Sodium 137 135 - 145 mmol/L [facility] Potassium 5.0 3.3 - 5.1 mmol/L [facility] Comment:Slight Hemolysis.Int erpret result with caution. Chloride 103 96 - 108 mmol/L [facility] Carbon Dioxide 30(H) 22 - 29 mmol/L [facility] Anion Gap 9(L) 12 - 20 [facility] Urea Nitrogen (BUN) 18(H) 9 - 16 mg/dL [facility] Creatinine, Serum 1.23 0.5 - 1.4 mg/dL [facility] Estimated Glomerular Filt Rate 56 [facility] Comment:Chronic Kidney Disea se: Estimated GFR < 60 mL/min/1.66x2Jpzocs Kidney Disease: Estimated GFR < 15 mL/min/1.73m2 Glucose 82 60 - 115 mg/dL [facility] Calcium 9.6 8.4 - 10.2 mg/dL [facility] Bilirubin, Total 0.6 0.0 - 1.0 mg/dL [facility] Aspartate Amino Transferase 29 5 - 37 U/L [facility] Comment:Slight Hemolysis.Int erpret result with caution. Alanine Aminotransferase 21 0 - 40 U/L [facility] Total Protein 8.0 6.5 - 8.0 g/dL [facility] Albumin Level 3.8 3.5 - 5.0 g/dL [facility] Alkaline Phosphatase 77 39 - 117 U/L [facility] Blood Venous blood specimen / Unknown 09/19/2024 10:52 AM EST 09/19/2024 2:06 PM EST Estrella Beck MD LAB BLOOD ORDERABLES Final Result Performing Organization Address City/State/[facility] Co de Phone Number [facility] [address] [place] [address] [phone] from Last 3 Months Insurance [facility] Care Teams Fire Extinguisher Charger Relationship Specialty Start Date End Date Estrella Beck MD [address] [place] [address] [place] [address] PCP - General Internal Medicine 07/31/18
== END 2024-10-03 10:47 | disposition home or self-care (01) ==
PROVIDERS: PCP Internal Medicine; Visit Provider Internal Medicine Gastroenterology
DX: K21.9 Gastro-esophageal reflux disease without esophagitis (principal); K57.30 Diverticulosis of large intestine without perforation or abscess without bleeding; K62.5 Hemorrhage of anus and rectum
CPT/HCPCS: 99204

== ENCOUNTER → 2024-10-03 09:56 | Outpatient (BNVA) | payer OTHER, SELFPAY | PROVIDERS: PCP Internal Medicine; Visit Provider Internal Medicine Gastroenterology | DX: K21.9 Gastro-esophageal reflux disease without esophagitis (principal); K57.30 Diverticulosis of large intestine without perforation or abscess without bleeding; K62.5 Hemorrhage of anus and rectum | CPT/HCPCS: 99202 ==

== ENCOUNTER → 2024-10-24 10:40 | Outpatient (REF) | payer OTHER, SELFPAY ==
--- NOTE | 2024-10-24 10:45 | CA_ITS ---
Transthoracic Echocardiogram Patient (Last, First, Middle): Isauro Tiwari, Gender: Male Date of : 1940 Age: 84 Procedure Date: 10/24/2024 Procedure Type: Transthoracic Echocardiogram Location: OP Height: 165.1 cm Weight: 76.2 kg BSA: 1.84 m2 Heart Rate: bpm BP: 140 / 87 mmHg Music Composer: VANESSA Referring MD: Estrella Beck MD Sales Manager: Beto Álvarez MD Symptoms: I10 HTN,MIJARES R06.09 Study Quality: Adequate ECG Rhythm: Sinus Conclusions: - 1. Normal LV ejection fraction of 60 65% with grade 1 diastolic dysfunction 2. Mzuc-dl-qvbubcgp aortic stenosis 3. Normal RV systolic pressure with mildly elevated right atrial pressures 4. Mildly dilated ascending aorta 5. No gross pericardial effusion Findings Left Ventricle Normal left ventricular size, thickness, and systolic function. The visually estimated ejection fraction is between 60-65%. Spectral Doppler is indicative of an impaired relaxation filling pattern. E/E prime ratio is <8, consistent with normal filling pressures. Evidence suggests grade I (mild) diastolic dysfunction. There is mild septal asymmetric hypertrophy. Right Ventricle Normal right ventricular cavity size and systolic function. Atria The left atrium is likely dilated. There is no evidence of interatrial shunt. The right atrium is normal in size. Aortic Valve The aortic valve was not well visualized. There is mild calcification of the aortic valve. There is mild thickening of the aortic valve. There is mild to moderate aortic valve stenosis. The peak aortic velocity is 2.23 m/s with a calculated peak gradient of 20 mmHg. The mean gradient is 11 mmHg. The aortic valve area is 1.39 cm2. There is no aortic valve regurgitation. Mitral Valve Normal mitral valve structure and function. There is trace mitral valve regurgitation. There is no mitral valve stenosis. Pulmonic Valve The pulmonic valve was not well visualized. Tricuspid Valve Likely normal tricuspid valve structure and function. There is mild tricuspid valve regurgitation. The right ventricular systolic pressure is normal. Mildly elevated right atrial pressure. There is no evidence of pulmonary hypertension. Great Vessels The pulmonary artery was not well visualized. There is mild dilatation of the ascending aorta measuring 3.90 cm. Venous The inferior vena cava is normal in size and collapses greater than 50% with inspiration. Pericardium/Pleural There is no evidence of pericardial effusion. Prior Study Comparison Changes noted compared to prior study dated: 06/03/2022. [id number] stenosis of aortic valve noted Measurements 2D Linear Measurements IVSd: 0.81 0.6-0.9/0.6-1.0 cm LVIDd: 4.49 3.9-5.3/4.2-5.9 cm LVIDd Index: 2.44 2.4-3.2/2.2-3.1 cm/m2 LVIDs: 2.72 2.0-3.6 cm LVPWd: 0.90 0.7-1.1 cm LA Diam: 2.20 2.7-3.8/3.0-4.0 cm LAIDs Index: 1.20 1.5-2.3 cm/m2 LV Mass: 153.36 67-162/88-224 g LV Mass Index: 83.35 43-95/49-115 g/m2 LVOT Diam: 2.00 3.0+(-)1.3 cm 2D Systolic Function EF 4C: 62.40 >55% EF 2C: 63.80 >55% EF BiP: 62.10 >55% Mitral Valve MV Pk E: 0.63 MV PK A: 0.90 MV Decel Time: 372.00 E/A: 0.70 E'Lateral: 8.16 E'Medial: 4.79 E/E' Med: 13.20 E/E' Lat: 7.80 PHT: 109.00 MVA PHT: 2.02 Decel Deuel: 1.70 Aortic Valve AoV Pk Pedro: 2.23 AoV Mn Pedro: 1.53 AoV VTI: 0.44 AoV Pk Grad: 20.00 Aov Mn Grad: 11.00 PARI Cont.VTI: 1.39 LVOT LVOT Pk Pedro: 1.05 LVOT Mn Pedro: 0.66 LVOT VTI: 0.20 LVOT Pk Grad: 4.00 LVOT Mn Grad: 2.00 LVOT Diam: 2.00 LVOT Area: 3.14 Diastolic Function MV Pk E: 0.63 MV Pk A: 0.90 E/A: 0.70 E'Medial: 4.79 E/E' Med: 13.20 E' Laterial: 8.16 E/E' Lat: 7.80 Right Ventricle TAPSE (mm): 23.90 Tricuspid Valve TR Pk Pedro: 2.52 TR Pk Grad: 25.00 RA Press: 8.00 RVSP: 33.00 Great Vessels Aorta Sinus of Valsalva: 3.94 2.0-3.[address] Ridge: 2.59 1.7-3.4 cm Ao Asc: 3.90 2.1-3.4 cm Updated in Other Vendor System with Status of Final Beto Álvarez MD electronically signed on 10/24/2024 4:50:49 PM with status of Final
--- OUTSIDE RECORDS SUMMARY | 2024-10-24 13:58 | XMS_ITS | Clinical Summary ---
Author Organization [employer] Address [address] [facility] 7t [place] [address] Care Team Providers Care Forging Machine Operator Name Role Phone Estrella Beck MD Primary Care Provider [phone] Allergies Active Allergy Reactions Criticality Noted Date [...] Description 09/19/2024 9:45 AM EST Office Visit [facility] MED & PEDS [address] [place] [address] Estrella Beck MD Hypercholesterolemia (Primary Dx); Primary hypertension; MIJARES (dyspnea on exertion); Dietary counseling; Exercise counseling; Overweight 09/19/2024 Telephone [facility] [address] [place] [address] Estrella Beck MD 09/19/2024 Travel 09/18/2024 Telephone [facility] [address] [place] [address] Estrella Beck MD chart prep 08/09/2024 Telephone [facility] [address] [place] [address] Amparo Puri MD 08/08/2024 1:40 PM EST Office Visit [facility] [address] [place] [address] Amparo Puri MD Hematochezia (Primary Dx) 08/08/2024 Travel 08/08/2024 Refill [facility] [address] [place] [address] Estrella Beck MD 08/07/2024 Telephone [facility] [address] [place] [address] Estrella Beck MD Traige 08/01/2024 Telephone [facility] [address] [place] [address] Estrella Beck MD Nurse Triage from Last [...] 12/25/2024 10:30 AM EDT Office Visit [facility] [address] [place] [address] Estrella Beck MD [address] [place] [address] Health Maintenance Due Date Last Done Comments Depression Screening 1940 Alcohol/Substance Use Screening 1954 RSV Patients and Patients Aged 60 years or older (1 - 1-dose 75+ series) 2017 SDOH Screening 06/14/2024 06/14/2023 Influenza Vaccine (#1) 2025 Postp oned from 03/31/2024 (Patient Refused) COVID-19 Vaccine (4 - 2023-2 5 season) 2025 11/29/2021, 11/04/2020, 10/07/2020 Postponed from 03/31/2024 (Patient Refused) Pneumococcal Vaccine: 50+ Years (1 [...] patient's age to complete this topic Hepatitis A Vaccines Aged Out No long er eligible [...] W/Reflex to FT4 (09/19/2024 10:52 AM EST) Pathologist [facility] TSH reflex Free T4 1.93 0.32 - 4.0 uIU/mL [facility] Blood Venous blood specimen / Unknown 09/19/2024 10:52 AM EST 09/19/2024 2:06 PM EST us Estrella Beck MD LAB BLOOD ORDERABLES Final Result [facility] [address] [place] [address] [phone] * (ABNORMAL) CBC auto differential (09/19/2024 10:52 AM EST) Only the most recent of2 resultswithin the time period is included. Pathologist [facility] White Blood Count 8.1 4.8 - 10.8 X10*3/uL [facility] Red Blood Count 5.21 4.60 - 5.80 X10*6/uL [facility] Hemoglobin 15.6 14.0 - 18.0 g/dl [facility] Hematocrit 47.0 42.0 - 52.0 % [facility] Mean Corpuscular Volume 90.2 80.0 - 98.0 fL [facility] Mean Corpuscular Hemoglobin 29.9 27.0 - 33.0 pg [facility] Mean Corpuscular HGB Conc 33.2 31.0 - 36.0 g/dl [facility] Red Cell Distribution Width 14.0 11.0 - 16.0 % [facility] Platelet Count 236 160 - 400 X10*3/uL [facility] Mean Platelet Volume 10.1 9.4 - 12.4 fL [facility] Neutrophils Percent Auto 54.3 45 - 73 % [facility] Imm Gran Pct Auto 0.4 0.0 - 0.4 % [facility] Lymphocytes Percent Auto 19.7(L) 20 - 40 % [facility] Monocytes Percent Auto 12.9(H) 2 - 11 % [facility] Eosinophils Percent Auto 11.7(H) 0 - 4 % [facility] Basophils Percent Auto 1.0 0 - 2 % [facility] NRBC Pct Auto 0.0 0.0 - 0.2 /100WBC [facility] Neutrophils Absolute Auto 4.4 2.0 - 8.3 x10*3/uL [facility] Imm Gran Abs Auto 0.03 0.00 - 0.03 X10*3/uL [facility] Lymphocytes Absolute Auto 1.6 1.2 - 4.9 X10*3/uL [facility] Monocytes Absolute Auto 1.1 0.1 - 1.2 X10*3/uL [facility] Eosinophils Absolute Auto 1.0(H) 0.0 - 0.4 X10*3/uL [facility] Basophils Absolute Auto 0.1 0.0 - 0.2 X10*3/uL [facility] NRBC Abs Auto 0.000 0.0 - 0.012 X10*3/uL [facility] Blood Venous blood specimen / Unknown 09/19/2024 10:52 AM EST 09/19/2024 2:06 PM EST us Estrella Beck MD LAB BLOOD ORDERABLES Final Result [facility] [address] [place] [phone] * (ABNORMAL) Lipid Panel, Standard (09/19/2024 10:52 AM EST) Triglycerides 87 <150 mg/dL [facility] Comment:Desirable Triglyceri de: less than 150 mg/dLBorderline High Triglyceride 150-199 mg/dLHigh Triglyceride: 200-499 mg/dLVery High Triglyceride: greater than or equal to 5OO mg/dL Cholesterol 188 <200 mg/dL [facility] Comment:Desirable Cholestero l: less than 200 mg/dLBorderline High Cholesterol: 200-239 mg/dLHigh Cholesterol: greater than 239 mg/dL LDL Cholesterol Calculated 132(H) <100 mg/dL [facility] Comment:Desirable LDL: less than 100 mg/dLNear Optimal/Above Optimal LDL: 110- 129 mg/dLBorderline High LDL: 130-159 mg/dLHigh LDL: 160-189 mg/dLVery High LDL: greater than or equal to 190 mg/dL HDL Cholesterol 39(L) >40 mg/dL [facility] Comment:Desirable HDL: great er than 40 mg/dL Note: This HDL assay may give artificially low results in patients with liver disease. Blood Venous blood specimen / Unknown 09/19/2024 10:52 AM EST 09/19/2024 2:06 PM EST us Estrella Beck MD LAB BLOOD ORDERABLES Final Result [facility] [address] [place] [phone] * (ABNORMAL) Comprehensive Metabolic Panel (09/19/2024 10:52 AM EST) Sodium 137 135 - 145 mmol/L [facility] Potassium 5.0 3.3 - 5.1 mmol/L [facility] Comment:Slight Hemolysis.Int erpret result with caution. Chloride 103 96 - 108 mmol/L [facility] Carbon Dioxide 30(H) 22 - 29 mmol/L [facility] Anion Gap 9(L) 12 - 20 [facility] Urea Nitrogen (BUN) 18(H) 9 - 16 mg/dL [facility] Creatinine, Serum 1.23 0.5 - 1.4 mg/dL [facility] Estimated Glomerular Filt Rate 56 [facility] Comment:Chronic Kidney Disea se: Estimated GFR < 60 mL/min/1.71e0Vgstcs Kidney Disease: Estimated GFR < 15 mL/min/1.73m2 Glucose 82 60 - 115 mg/dL [facility] Calcium 9.6 8.4 - 10.2 mg/dL [facility] Bilirubin, Total 0.6 0.0 - 1.0 mg/dL [facility] Aspartate Amino Transferase 29 5 - 37 U/L [facility] Comment:Slight Hemolysis.Int erpret result with caution. Alanine Aminotransferase 21 0 - 40 U/L [facility] Total Protein 8.0 6.5 - 8.0 g/dL [facility] Albumin Level 3.8 3.5 - 5.0 g/dL [facility] Alkaline Phosphatase 77 39 - 117 U/L [facility] Blood Venous blood specimen / Unknown 09/19/2024 10:52 AM EST 09/19/2024 2:06 PM EST us Estrella Beck MD LAB BLOOD ORDERABLES Final Result [facility] [address] [place] [address] [phone] from Last 3 Months Insurance [facility] Care Teams Forging Machine Operator Relationship Specialty Start Date End Date Estrella Beck MD [address] [place] [address] [place] [address] PCP - General Internal Medicine 07/31/18
--- OUTSIDE RECORDS SUMMARY | 2024-10-24 13:58 | XMS_ITS | Data Portability ---
Author Organization [facility] [place] [facility] [employer] Address [address] [place] [phone] Assessment No assessment recorded. Plan of Treatment [...] % 99 % 18 /min 98.2 [degF] 15498.4 56 g 74 /min 154 mm[Hg] 88 mm[Hg] Not Available [facility] - production 4 17:54:08 Social History None recorded. Functional Status None recorded. Mental Status None recorded. Family History Nothing Reported. Medical History No medical history recorded. Past Encounters Encounter ID Performer Location Encounter Start Date Encounter Closed Date Diagnosis/Indication Diagnosis SNOMED-CT Code Diagnosis ICD10 Code Diagnosis Note [id number] Sherin Sow MD [address] - [facility] [address] [place] [phone] 08/09/2023 17:53:59 08/10/2023 09:57:09 Localized eruption of skin [id number] R21 83 year old male being evaluated [...] assessment and plan as documented by the director chemistry. I provided real-time medical direction for this [...] Mcdaniels Member ID Guarantor Name 08/09/2023 1 [facility] - DOS ON OR AFTER 2022 - DUAL ELIGIBLE - RETIREMENT OPTIONS AND ONE CARE (MEDICARE REPLACEMENT/ADV ANTAGE - HMO) Isauro Tiwari [id number] Isauro Tiwari Notes Date Note Type Note [...] .................. .................. .................. .................. .................. .................. ............... Motorboat Operator Note From Arben Gallo: Pt co rash on face and back. Denies cp sob dizziness headaches pain nausea vomiting or diarrhea. Baseline vitals assessed. Pictures taken of rash and uploaded. [facility] contacted and advised to make appt with pcp for further testing. Pt education on signs indicating the ER. Motorboat Operator Allergies: Aspirin .................. .................. .................. .................. .................. .................. .................. ............... Disposition: Fulfilled Sherin Sow MD [address] [place] [address],[address], [place], [phone], [place]LE [place] 08/09/2023 20:56:44
== END ==
LOC: HO.CARD 10:40
PROVIDERS: PCP Internal Medicine; Visit Provider Internal Medicine
DX: I10 Essential (primary) hypertension (principal); R06.09 Other forms of dyspnea
CPT/HCPCS: 93306

== ENCOUNTER → 2024-10-24 10:45 | Outpatient (BNV) | payer OTHER, SELFPAY | PROVIDERS: PCP Internal Medicine; Visit Provider Internal Medicine Cardiovascular Disease | DX: I35.2 Nonrheumatic aortic (valve) stenosis with insufficiency (principal); I34.0 Nonrheumatic mitral (valve) insufficiency | CPT/HCPCS: 93306 ==

== ENCOUNTER 2024-10-31 17:05 | Emergency (ER) | payer OTHER, SELFPAY ==
[2024-10-31 17:17] VITALS: BP 187/108; BP 228/110; PULSE 63; RESP 16; TEMP 36.5; O2SAT 96; BMI 26.8
--- NOTE | 2024-10-31 17:21 | ECG_ITS ---
Test Reason : HYPERTENTION Blood Pressure : */* mmHG Vent. Rate : 58 BPM Atrial Rate : 58 BPM P-R Int : 178 ms QRS Dur : 70 ms QT Int : 406 ms P-R-T Axes : 43 -21 11 degrees QTcB Int : 398 ms Sinus bradycardia Otherwise normal ECG When compared with ECG of 11-Dec-2023 07:55, Premature ventricular complexes are no longer Present Referred By: Generic ED Physician Electronically Signed By: ROSS CORMIER
--- NOTE | 2024-10-31 17:53 | ED.GENADULT ---
HPI - General Adult General Chief complaint: Recheck/Abnormal Lab/Rx Stated complaint: high bp vomiting, lower back pain Time Seen by Provider: 10/31/24 17:51 Source: patient Limitations: language barrier History of Present Illness ED Provider: Dr. Esteban Zaldivar HPI narrative: 84-year-old male with a history of BPH, hypertension, GERD, who presents emergency department for evaluation several episodes of dry heaving which started prior to coming to the emergency department and left lower back pain x3 days. Patient states that he had a gradual onset of left lower back pain for the past 3 days. He states the pain is worse with movement. He states the pain does not radiate down his leg, he has no numbness or weakness. He was had no loss of bowel or bladder control. The patient was taken Tylenol with only minimal relief his pain. He states that he started to dry heave multiple times and after dry heaving he took his systolic blood pressure was 210. The patient was review of systems was essentially negative. He denied fever, chills, rhinorrhea, sore throat, cough, chest pain, shortness of breath. At the time my evaluation he denied nausea. He denied abdominal pain, frequency, urgency or dysuria. Related Data Home Medications ?Medication ?Instructions ?Recorded ?Confirmed acetaminophen 650 mg 650 mg PO Q8H PRN 11/04/20 10/03/24 tablet,extended release hydrochlorothiazide 12.5 mg capsule 12.5 mg PO DAILY 11/04/20 10/03/24 Previous Rx's ?Medication ?Instructions ?Recorded finasteride 5 mg tablet (Proscar) 5 mg PO DAILY 90 days #90 tabs 09/29/23 tamsulosin 0.4 mg capsule 0.4 mg PO DAILY 90 days #90 caps 09/29/23 cyclobenzaprine 5 mg tablet 5 mg PO TID PRN muscle spasm or 10/31/24 pain #14 tabs ibuprofen 400 mg tablet 400 mg PO TID PRN fever or pain 10/31/24 #30 tabs Allergies Allergy/AdvReac Type Severity Reaction Status Date / Time aspirin [ASPIRIN] Allergy Mild BLEEDING Verified 10/31/24 17:20 diclofenac Allergy Unknown unsure if Verified 10/31/24 17:20 this is accurate [facility] Past Medical History Medical History (Updated 10/31/24 @ 21:41 by Esteban Zaldivar MD) BPH (benign prostatic hyperplasia) HTN (hypertension) Early satiety Surgical History History of esophagogastroduodenoscopy (EGD) H/O colonoscopy History of prostate surgery Family History Family History Family/Other Prostate cancer Cancer Social History Social History Household Members: Family and Children Alcohol intake: current Alcohol intake frequency: does not drink Patient Tobacco Use Status: Current everyday Tobacco user Tobacco use type: Cigarette Cigarettes Per Day: 8 Physical Exam ED Vital Signs: Vital Signs - 24 hr 10/31/24 17:17 10/31/24 18:35 10/31/24 20:09 Temperature 97.7 F 98.1 F Pulse Rate 63 70 64 Respiratory Rate 16 18 18 Blood Pressure 187/108 H 170/98 H 186/90 H Pulse Oximetry 96 96 94 Oxygen Delivery Method Room Air Room Air Room Air BMI result Body Mass Index 26.8 Vital signs revealed an elevated blood pressure of 187/108 Exam: General: Awake, alert , patient appears to be uncomfortable secondary to his left lower back pain Head: Normocephalic, atraumatic EENT: PERRL, Lids normal, sclera normal, conjunctiva normal, nose normal , ears normal, throat without erythema or exudates Neck: Supple, no adenopathy Lung: breath sounds symmetric, no wheezing, rales or rhonchi Chest: symmetric movement, nontender Heart: regular rate and rhythm, normal S1, S2 no murmurs or rubs Abdomen: soft, non-tender, nondistended, normal bowel sounds Back: no tenderness palpation over his vertebrae, he does have tenderness palpation over his lumbar sacral paraspinal muscles on the left but not on the right. There was spasm of the left-sided muscles. Patient has negative straight leg raises bilaterally Extremities: no deformities, moves all extremities symmetrically Neuro: Awake, alert, oriented, normal speech, cranial nerves intact, moves all extremities symmetrically Psych: Pleasant, cooperative Medications Administered Discontinued Medications Generic Name Dose Route Start Last Admin Trade Name Freq PRN Reason Stop Dose Admin Cyclobenzaprine HCl 10 mg 10/31/24 18:15 10/31/24 18:25 Cyclobenzaprine Hcl 10 Mg Tablet PO 10/31/24 18:16 10 mg ONCE ONE Administration Ketorolac Tromethamine 15 mg 10/31/24 18:15 10/31/24 18:25 Ketorolac Tromethamine 15 Mg/Ml Vial IVPUSH 10/31/24 18:16 15 mg ONCE STA Administration Medical Decision Making Medical Decision Making [facility] Narrative: 84-year-old male with a history of BPH, hypertension, GERD, who presents emergency department for evaluation several episodes of dry heaving which started prior to coming to the emergency department and left lower back pain x3 days. Patient states that he had a gradual onset of left lower back pain for the past 3 days, worse with movement, no radiation of the pain, numbness or weakness of the left lower extremity, no loss of bowel or bladder control. the patient did check his blood pressure after dry heaving in his systolic blood pressure was elevated at 210. Patient was had no loss of bowel or bladder control, his review of systems were negative. Differential diagnosis: Includes but is not limited to Musculoskeletal strain, musculoskeletal spasm, sciatica, cauda equina syndrome, viral syndrome, anemia, electrolyte abnormalities Course: 18:23 I did order laboratory evaluation and urinalysis on the patient. Patient was ordered to get Toradol 15 mg IV for his lower back pain and cyclobenzaprine 10 mg orally for his spasm. 21:43 My interpretation patient's laboratory evaluation is as follows: CBC was normal. BUN was elevated 22 with a normal creatinine of 1.02. Urinalysis was positive for protein otherwise negative. COVID-19, influenza and RSV tests were negative. Patient was presentation is consistent with lumbar muscles sprain and spasm. Patient did get improvement with the above treatment in his pain-free. He was able to stand and walk without any difficulty. Patient was prescribed ibuprofen 400 mg 3 times a day as needed for pain and cyclobenzaprine 5 mg 3 times a day as needed for spasm. He was given printed and verbal instructions and discharged home. Admission/Observation Consideration of admission/observation: Escalation of care including admission/observation considered ( Yes) Lab Data [facility] Lab Attestation statement: I reviewed the patient's lab results. 10/31/24 17:42 10/31/24 17:42 Labs: Lab Results 10/31/24 10/31/24 10/31/24 Range/Units 17:42 18:34 19:43 WBC 8.4 (4.8-10.8) X10*3/uL RBC 5.23 (4.60-5.80) X10*6/uL Hgb 15.8 (14.0-18.0) g/dl Hct 45.8 (42.0-52.0) % MCV 87.6 (80.0-98.0) fL MCH 30.2 (27.0-33.0) pg MCHC 34.5 (31.0-36.0) g/dl RDW 13.6 (11.0-16.0) % Plt Count 225 (160-400) X10*3/uL MPV 10.2 (9.4-12.4) fL Immature Gran % (Auto) 0.4 (0.0-0.4) % Neut % (Auto) 66.7 (45-73) % Lymph % (Auto) 16.2 L (20-40) % [place] % (Auto) 9.9 (2-11) % Eos % (Auto) 6.1 H (0-4) % Baso % (Auto) 0.7 (0-2) % Lymph # (Auto) 1.4 (1.2-4.9) X10*3/uL [place] # (Auto) 0.8 (0.1-1.2) X10*3/uL Eos # (Auto) 0.5 H (0.0-0.4) X10*3/uL Baso # (Auto) 0.1 (0.0-0.2) X10*3/uL Abs Immat Gran (auto) 0.03 (0.00-0.03) X10*3/uL Absolute Neuts (auto) 5.6 (2.0-8.3) x10*3/uL Absolute Nucleated RBC 0.000 (0.0-0.012) X10*3/uL Nucleated RBC % (auto) 0.0 (0.0-0.2) /100WBC Sodium 136 (135-145) mmol/L Potassium 4.0 (3.3-5.1) mmol/L Chloride 104 (96-108) mmol/L Carbon Dioxide 26 (22-29) mmol/L Anion Gap 10 L (12-20) BUN 22 H (9-16) mg/dL Creatinine 1.02 (0.5-1.4) mg/dL Estim Creat Clear Calc 48.5 Estimated GFR > 60 Random Glucose 85 (60-115) mg/dL Calcium 9.1 (8.4-10.2) mg/dL Total Bilirubin 0.4 (0.0-1.0) mg/dL AST 21 (5-37) U/L ALT 16 (0-40) U/L Alkaline Phosphatase 79 (39-117) U/L Troponin I High Sens 5.5 (<3.5-35.0) ng/L Total Protein 7.7 (6.5-8.0) g/dL Albumin 4.0 (3.5-5.0) g/dL Urine Color Yellow Urine Appearance Clear Urine pH 7.5 (5.0-9.0) Ur Specific [place] 1.020 (1.005-1.025) Urine Protein 30 (1+) H (Neg-Trace) mg/dL Urine Glucose (UA) Negative (Negative) mg/dL Urine Ketones Negative (Negative) mg/dL Urine Blood Negative (Negative) Urine Nitrite Negative (Negative) Ur Leukocyte Esterase Negative (Negative) Urine RBC 0-2 (0-2) /HPF Urine WBC 0-5 (0-5) /HPF Ur Squamous Epith Cells 0-2 (0-2) /HPF Urine Bacteria None Seen (None Seen) Hyaline Casts 0-2 (0-2) /LPF Influenza Type A (PCR) NEGATIVE (Negative) Influenza Type B (PCR) NEGATIVE (Negative) RSV RNA Qual (PCR) NEGATIVE (Negative) SARS-CoV-2 RNA (RT-PCR) NEGATIVE (Negative) Prescription Management I considered prescription management with: Pain Medication ( Ibuprofen) and Other ( anti spasmodic: Cyclobenzaprine) Chronic Conditions Patient?s care impacted by: Hypertension Discharge Plan Discharge Clinical Impression: Lumbar back sprain, Lumbar paraspinal muscle spasm Patient Disposition: Home, Self-Care Instructions: Acute Low Back Pain (ED) Additional Instructions: You had a CBC, CMP and urine test in the emergency department which was unremarkable. On your examination did have tenderness with palpation of the muscles in the left lower back as well as spasm of these muscles. You were treated with Toradol 15 mg IV and cyclobenzaprine 10 mg orally. This improved her pain. Take ibuprofen 400 mg pills, 1 pills every 6 hours as needed for pain or fever. Take Flexeril (cyclobenzaprine) 10 mg pills, 1 pill every 6-8 hours as needed for pain or spasm. This medication will make you sleepy. Do not drive or work while taking this medication. Follow-up with your doctor in 2 days. Please return to the emergency department if your symptoms get worse or if you develop any symptoms that are concerning to you. Prescriptions: New ibuprofen 400 mg tablet 400 mg PO TID PRN (Reason: fever or pain) Qty: 30 0RF cyclobenzaprine 5 mg tablet 5 mg PO TID PRN (Reason: muscle spasm or pain) Qty: 14 0RF No Action hydrochlorothiazide 12.5 mg capsule 12.5 mg PO DAILY acetaminophen 650 mg tablet extended release 650 mg PO Q8H PRN finasteride [Proscar] 5 mg tablet 5 mg PO DAILY 90 Days Qty: 90 3RF tamsulosin 0.4 mg capsule 0.4 mg PO DAILY 90 Days Qty: 90 1RF Print Language: Serbian
[2024-10-31 18:07] LABS: MANUAL DIFF FLAG NO
[2024-10-31 18:14] LABS: Basophils Absolute Auto 0.1 X10*3/uL (0.0-0.2); Basophils Percent Auto 0.7 % (0-2); Eosinophils Absolute Auto 0.5 X10*3/uL (0.0-0.4); Eosinophils Percent Auto 6.1 % (0-4); Hematocrit 45.8 % (42.0-52.0); Hemoglobin 15.8 g/dl (14.0-18.0); Imm Gran Abs Auto 0.03 X10*3/uL (0.00-0.03); Imm Gran Pct Auto 0.4 % (0.0-0.4); Lymphocytes Absolute Auto 1.4 X10*3/uL (1.2-4.9); Lymphocytes Percent Auto 16.2 % (20-40); Mean Corpuscular HGB Conc 34.5 g/dl (31.0-36.0); Mean Corpuscular Hemoglobin 30.2 pg (27.0-33.0); Mean Corpuscular Volume 87.6 fL (80.0-98.0); Mean Platelet Volume 10.2 fL (9.4-12.4); Monocytes Absolute Auto 0.8 X10*3/uL (0.1-1.2); Monocytes Percent Auto 9.9 % (2-11); Neutrophils Absolute Auto 5.6 x10*3/uL (2.0-8.3); Neutrophils Percent Auto 66.7 % (45-73); Platelet Count 225 X10*3/uL (160-400); Red Blood Count 5.23 X10*6/uL (4.60-5.80); Red Cell Distribution Width 13.6 % (11.0-16.0); White Blood Count 8.4 X10*3/uL (4.8-10.8)
[2024-10-31 18:24] LABS: Alanine Aminotransferase 16 U/L (0-40); Alkaline Phosphatase 79 U/L (39-117); Anion Gap 10 (12-20); Aspartate Amino Transferase 21 U/L (5-37); Bilirubin Total 0.4 mg/dL (0.0-1.0); Blood Urea Nitrogen 22 mg/dL (9-16); Calcium 9.1 mg/dL (8.4-10.2); Carbon Dioxide 26 mmol/L (22-29); Chloride 104 mmol/L (96-108); Creatinine Clr Calc Pharmacy 48.5; Estimated Glomerular Filt Rate > 60; Glucose Random 85 mg/dL (60-115); Sodium 136 mmol/L (135-145); Total Protein 7.7 g/dL (6.5-8.0)
[2024-10-31] MEDS: Ketorolac Tromethamine 15 MG/ML VIAL IVPUSH (18:25)
[2024-10-31] MEDS: Cyclobenzaprine HCl 10 MG TABLET PO (18:25)
[2024-10-31 18:28] LABS: Troponin-I High Sensitivity 5.5 ng/L (<3.5-35.0)
[2024-10-31 18:35] VITALS: BP 170/98; PULSE 70; RESP 18; O2SAT 96
[2024-10-31 19:37] LABS: Influenza A PCR NEGATIVE (Negative); Influenza B PCR NEGATIVE (Negative); Resp Syncy Virus RNA Qual PCR NEGATIVE (Negative); SARS COV2 PCR INHOUSE NEGATIVE (Negative)
[2024-10-31 19:49] LABS: Appearance Urine Clear; Color Urine Yellow; Glucose Urine UA Negative (Negative); Leukocyte Esterase Urine Negative (Negative); Nitrite Urine Negative (Negative); PH 7.5 (5.0-9.0); UMIC TRIGGER UACC YES; Urine Blood Negative (Negative); Urine Ketones Negative (Negative); Urine Protein 30 (1+) mg/dL (Neg-Trace)
[2024-10-31 19:54] LABS: Bacteria Urine None Seen (None Seen); Hyaline Casts Urine 0-2 /LPF (0-2); RBC Urine 0-2 /HPF (0-2); Squamous Epithelial Cell Urine 0-2 /HPF (0-2); WBC Urine 0-5 /HPF (0-5)
[2024-10-31 20:09] VITALS: BP 186/90; PULSE 64; RESP 18; TEMP 36.7; O2SAT 94
--- NOTE | 2024-10-31 21:56 | PC.NURSE ---
Dr. Zaldivar aware of BP 186/90. Patient asymptomatic, he denies headache, chest pain/heart palpitations, shortness of breath. Per MD OK to discharge patient at this time.
[2024-10-31 21:58] VITALS: BP 186/90; PULSE 64; RESP 18; TEMP 37; O2SAT 94
--- OUTSIDE RECORDS SUMMARY | 2024-10-31 22:07 | XMS_ITS | Clinical Summary ---
Author Organization [employer] Address [address] [facility] [address] [place] [address] Care Team Providers Care Assistant Hairstylist Name Role Phone Estrella Beck MD Primary Care Provider [phone] Allergies Active Allergy Reactions Criticality Noted Date [...] Description 09/19/2024 9:45 AM EST Office Visit [facility] [address] [place] [address] Estrella Beck MD Hypercholesterolemia (Primary Dx); Primary hypertension; MIJARES (dyspnea on exertion); Dietary counseling; Exercise counseling; Overweight 09/19/2024 Telephone [facility] [address] [place] [address] Estrella Beck MD 09/19/2024 Travel 09/18/2024 Telephone [facility] [address] [place] [address] Estrella Beck MD chart prep 08/09/2024 Telephone [facility] [address] [place] [address] Amparo Puri MD 08/08/2024 1:40 PM EST Office Visit [facility] [address] [place] [address] Amparo Puri MD Hematochezia (Primary Dx) 08/08/2024 Travel 08/08/2024 Refill [facility] [address] [place] [address] Estrella Beck MD 08/07/2024 Telephone [facility] [address] [place] [address] Estrella Beck MD Traige from Last 3 Months Immunizations Name Administration [...] Office Visit [facility] [address] [place] [address] Estrella Beck MD [address] [place] [address] Health Maintenance Due Date Last Done Comments [...] Free T4 1.93 0.32 - 4.0 uIU/mL [facility] Blood Venous blood specimen / Unknown 09/19/2024 10:52 AM EST 09/19/2024 2:06 PM EST us Estrella Beck MD LAB BLOOD ORDERABLES Final Result [facility] [address] [place] [address] [phone] * (ABNORMAL) CBC auto differential (09/19/2024 10:52 AM EST) Only the most recent of2 resultswithin the time period is included. White Blood Count 8.1 4.8 - 10.8 X10*3/uL [facility] Red Blood Count 5.21 4.60 - 5.80 X10*6/uL [facility] Hemoglobin 15.6 14.0 - 18.0 g/dl [facility] Hematocrit 47.0 42.0 - 52.0 % [facility] Mean Corpuscular Volume 90.2 80.0 - 98.0 fL [facility] Mean Corpuscular Hemoglobin 29.9 27.0 - 33.0 pg [facility] Mean Corpuscular HGB Conc 33.2 31.0 - 36.0 g/dl [facility] Red Cell Distribution Width 14.0 11.0 - 16.0 % [facility] Platelet Count 236 160 - 400 X10*3/uL [facility] Mean Platelet Volume 10.1 9.4 - 12.4 fL [facility] Neutrophils Percent Auto 54.3 45 - 73 % [facility] Imm Gran Pct Auto 0.4 0.0 - 0.4 % [facility] Lymphocytes Percent Auto 19.7(L) 20 - 40 % [facility] Monocytes Percent Auto 12.9(H) 2 - 11 % [facility] Eosinophils Percent Auto 11.7(H) 0 - 4 % [facility] Basophils Percent Auto 1.0 0 - 2 % [facility] NRBC Pct Auto 0.0 0.0 - 0.2 /100WBC [facility] Neutrophils Absolute Auto 4.4 2.0 - 8.3 x10*3/uL [facility] Imm Gran Abs Auto 0.03 0.00 - 0.03 X10*3/uL [facility] Lymphocytes Absolute Auto 1.6 1.2 - 4.9 X10*3/uL [facility] Monocytes Absolute Auto 1.1 0.1 - 1.2 X10*3/uL [facility] Eosinophils Absolute Auto 1.0(H) 0.0 - 0.4 X10*3/uL [facility] Basophils Absolute Auto 0.1 0.0 - 0.2 X10*3/uL [facility] NRBC Abs Auto 0.000 0.0 - 0.012 X10*3/uL [facility] Blood Venous blood specimen / Unknown 09/19/2024 10:52 AM EST 09/19/2024 2:06 PM EST us Estrella Beck MD LAB BLOOD ORDERABLES Final Result [facility] [address], [place] [phone] * (ABNORMAL) Lipid Panel, Standard (09/19/2024 10:52 AM EST) Triglycerides 87 <150 mg/dL [facility] Comment:Desirable Triglyceri de: less than 150 mg/dLBorderline High Triglyceride 150-199 mg/dLHigh Triglyceride: 200-499 mg/dLVery High Triglyceride: greater than or equal to 5OO mg/dL Cholesterol 188 <200 mg/dL [facility] Comment:Desirable Cholestero l: less than 200 mg/dLBorderline High Cholesterol: 200-239 mg/dLHigh Cholesterol: greater than 239 mg/dL LDL Cholesterol Calculated 132(H) <100 mg/dL [facility] Comment:Desirable LDL: less than 100 mg/dLNear Optimal/Above Optimal LDL: 110- 129 mg/dLBorderline High LDL: 130-159 mg/dLHigh LDL: 160-189 mg/dLVery High LDL: greater than or equal to 190 mg/dL HDL Cholesterol 39(L) >40 mg/dL [facility] Comment:Desirable HDL: great er than 40 mg/dL Note: This HDL assay may give artificially low results in patients with liver disease. Blood Venous blood specimen / Unknown 09/19/2024 10:52 AM EST 09/19/2024 2:06 PM EST us Estrella Beck MD LAB BLOOD ORDERABLES Final Result [facility] [address] [place] [address] [phone] * (ABNORMAL) Comprehensive Metabolic Panel (09/19/2024 10:52 AM EST) Sodium 137 135 - 145 mmol/L [facility] Potassium 5.0 3.3 - 5.1 mmol/L [facility] Comment:Slight Hemolysis.Int erpret result with caution. Chloride 103 96 - 108 mmol/L [facility] Carbon Dioxide 30(H) 22 - 29 mmol/L [facility] Anion Gap 9(L) 12 - 20 [facility] Urea Nitrogen (BUN) 18(H) 9 - 16 mg/dL [facility] Creatinine, Serum 1.23 0.5 - 1.4 mg/dL [facility] Estimated Glomerular Filt Rate 56 [facility] Comment:Chronic Kidney Disea se: Estimated GFR < 60 mL/min/[id number] Kidney Disease: Estimated GFR < 15 mL/min/1.73m2 Glucose 82 60 - 115 mg/dL [facility] Calcium 9.6 8.4 - 10.2 mg/dL [facility] Bilirubin, Total 0.6 0.0 - 1.0 mg/dL [facility] Aspartate Amino Transferase 29 5 - 37 U/L [facility] Comment:Slight Hemolysis.Int erpret result with caution. Alanine Aminotransferase 21 0 - 40 U/L [facility] Total Protein 8.0 6.5 - 8.0 g/dL [facility] Albumin Level 3.8 3.5 - 5.0 g/dL [facility] Alkaline Phosphatase 77 39 - 117 U/L [facility] Blood Venous blood specimen / Unknown 09/19/2024 10:52 AM EST 09/19/2024 2:06 PM EST us Estrella Beck MD LAB BLOOD ORDERABLES Final Result [facility] [address] [place] [address] [phone] from Last 3 Months Insurance [facility] Care Teams Assistant Hairstylist Relationship Specialty Start Date End Date Estrella Beck MD [address] [place] [address] [place] [address] PCP - General Internal Medicine 07/31/18
--- OUTSIDE RECORDS SUMMARY | 2024-10-31 22:07 | XMS_ITS | Data Portability ---
Author Organization [facility] [place] [facility] Address [address] [place] [phone] Assessment No assessment recorded. Plan of Treatment [...] % 99 % 18 /min 98.2 [degF] 84923.4 56 g 74 /min 154 mm[Hg] 88 mm[Hg] Not Available [facility] - production 4 17:54:08 Social History None recorded. Functional Status None recorded. Mental Status None recorded. Family History Nothing Reported. Medical History No medical history recorded. Past Encounters Encounter ID Performer Location Encounter Start Date Encounter Closed Date Diagnosis/Indication Diagnosis SNOMED-CT Code Diagnosis ICD10 Code Diagnosis Note [id number] Sherin Sow MD [facility] - [facility] [address] [place] [address] 08/09/2023 17:53:59 08/10/2023 09:57:09 Localized eruption of skin [id number] R21 83 year old male being evaluated [...] assessment and plan as documented by the commercial attorney. I provided real-time medical direction for this [...] [facility] - DOS ON OR AFTER 2022 - DUAL ELIGIBLE - GROUP HOME OPTIONS AND ONE CARE (MEDICARE REPLACEMENT/ADV ANTAGE - HMO) Isauro Tiwari [id number] Isauro Tiwari Notes Date Note Type Note [...] .................. .................. .................. .................. .................. .................. ............... Presentation Specialist Note From Arben Gallo: Pt co rash on face and back. Denies cp sob dizziness headaches pain nausea vomiting or diarrhea. Baseline vitals assessed. Pictures taken of rash and uploaded. [facility] contacted and advised to make appt with pcp for further testing. Pt education on signs indicating the ER. Presentation Specialist Allergies: Aspirin .................. .................. .................. .................. .................. .................. .................. ............... Disposition: Fulfilled Sherin Sow MD [address] [place] [address],[address], [place], [phone], MARIELLE PARK 08/09/2023 20:56:44
== END 2024-10-31 22:00 | disposition home or self-care (01) ==
LOC: HO.ED 22:05
PROVIDERS: Emergency Provider Emergency Medicine Emergency Medical Services; PCP Internal Medicine
DX: S33.5XXA Sprain of ligaments of lumbar spine, initial encounter (principal); X50.9XXA Other and unspecified overexertion or strenuous movements or postures, initial encounter; M62.830 Muscle spasm of back; Z03.818 Encounter for observation for suspected exposure to other biological agents ruled out; Y93.89 Activity, other specified; Y92.019 Unspecified place in single-family (private) house as the place of occurrence of the external cause; Y99.9 Unspecified external cause status
CPT/HCPCS: 0241U; 36415; 80053; 81001; 84484; 85025; 93005; 96374; 99284; J1885

== ENCOUNTER → 2024-10-31 17:21 | Outpatient (BNV) | payer OTHER, SELFPAY | PROVIDERS: Emergency Provider Emergency Medicine Emergency Medical Services; PCP Internal Medicine; Visit Provider Internal Medicine | DX: R00.1 Bradycardia, unspecified (principal) | CPT/HCPCS: 93010 ==

== ENCOUNTER 2024-12-27 11:38 | Outpatient (AMB) | payer OTHER, SELFPAY ==
--- NOTE | 2024-12-27 11:40 | MHC.OFFVIS ---
Intake Visit Reasons: BPH follow up Intake Note: Patient is present for BPH F/U Urology Medication:TAMSULOSIN,FINASTERIDE Antibiotic Allergy:NONE Blood Thinner:NONE TODAY'SPVR:0ML'S [employer] Required: No Allergies aspirin [ASPIRIN] Allergy (Mild, Verified 12/27/24 11:42) BLEEDING diclofenac Allergy (Unknown, Verified 12/27/24 11:42) unsure if this is accurate HPI Comments Details: Isauro is very pleasant male. He is seen for the following urologic conditions - lower urinary tract symptoms - hematuria Armenian translation provided by qualified medical records receptionist One year after procedure Adequate stream Effective emptying Does have urgency and frequency with nocturia x3 Restart tamsulosin and solifenacin Lower urinary tract symptoms Longstanding Current therapy finasteride and tamsulosin Prior procedure on prostate Family history of prostate cancer Prior episode of hematuria Imaging - 02/19 renal bladder ultrasound with bilateral renal cysts and enlarged prostate 72 g 12/21 GreenLight laser [facility] Medical History (Updated 12/27/24 @ 12:17 by Joaquin Alvarez MD) BPH (benign prostatic hyperplasia) HTN (hypertension) Early satiety Surgical History History of esophagogastroduodenoscopy (EGD) H/O colonoscopy History of prostate surgery Family History Family/Other Prostate cancer Cancer Social History Household Members: Family and Children Alcohol intake: current Alcohol intake frequency: does not drink Patient Tobacco Use Status: Current everyday Tobacco user Tobacco use type: Cigarette Cigarettes Per Day: 8 Office Procedures Post Void Residual Post Residual Void Post Void Residual (PVR): 0 [id number] Void Residual by ultrasound Results AMB Urinalysis, Automated UA Leukoctes 0 Analisa/uL Last Edit by Alex Molina on 12/27/24 15:46 UA Nitrite Negative Last Edit by Alex Molina on 12/27/24 15:46 UA Urobilinogen 3.5 mg/dL Last Edit by Alex Molina on 12/27/24 15:46 UA Protein 15 mg/dL Last Edit by Alex Molina on 12/27/24 15:46 UA pH 6.0 Last Edit by Alex Molina on 12/27/24 15:46 UA Blood 0 Shaka/uL Last Edit by Alex Browningiel on 12/27/24 15:46 UA Specific [place] 1.010 Last Edit by Alex Tracy on 12/27/24 15:46 UA Ketone Negative Last Edit by Alex Tracy on 12/27/24 15:46 UA Bilirubin 0 mg/dL Last Edit by Alex Tracy on 12/27/24 15:46 UA Glucose 0 mg/dL Last Edit by Alex Tracy on 12/27/24 15:46 Assessment & Plan Assessment & Plan (1) BPH w urinary obs/LUTS: Code(s): N40.1 - Benign prostatic hyperplasia with lower urinary tract symptoms; N13.8 - Other obstructive and reflux uropathy Category: Medical (2) Overactive bladder: Code(s): N32.81 - Overactive bladder Category: Medical Orders: Orders AMB Urinalysis Automated Today Z13.9 - Encounter for screening, unspecified Medications: New solifenacin 5 mg PO DAILY 30 tabs 2RF 30 days N32.81 - Overactive bladder Refilled tamsulosin 0.4 mg PO DAILY 90 caps 1RF 90 days N32.81 - Overactive bladder Discontinued finasteride (Proscar) Discontinued Reason: Patient Completed Course 5 mg PO DAILY 90 days 90 tabs 3RF C61 - Malignant neoplasm of prostate Coding Diagnoses BPH w urinary obs/LUTS N40.1; N13.8 Overactive bladder N32.81 CPT Codes Post Residual Void - PVR CPT Code: 85553-Yxyn Void Residual by ultrasound ([id number])
--- OUTSIDE RECORDS SUMMARY | 2024-12-27 12:31 | XMS_ITS | Data Portability ---
Author Organization [email or web address] Address [address] [place] [id number] Assessment No assessment recorded. Plan of Treatment [...] % 99 % 18 /min 98.2 [degF] 98762.4 56 g 74 /min 154 mm[Hg] 88 mm[Hg] Not Available [facility] - production 4 17:54:08 Social History None recorded. Functional Status None recorded. Mental Status None recorded. Family History Nothing Reported. Medical History No medical history recorded. Past Encounters Encounter ID Performer Location Encounter Start Date Encounter Closed Date Diagnosis/Indication Diagnosis SNOMED-CT Code Diagnosis ICD10 Code Diagnosis Note [id number] Sherin Sow MD Main - [facility] [address] [place] [address] 08/09/2023 17:53:59 08/10/2023 09:57:09 Localized eruption of skin [id number] R21 83 year old male being evaluated [...] assessment and plan as documented by the butcher apprentice. I provided real-time medical direction for this [...] Recorded Advance Directives Directive None Recorded Payers Insurance Date Sequence Insurance Name Policy Number Policy Mcdaniels Covered Member ID Mcdaniels Member ID Guarantor Name 11/03/2023 1 [facility] - DOS ON OR AFTER 2022 - DUAL ELIGIBLE - CARE HOME OPTIONS AND ONE CARE (MEDICARE REPLACEMENT/ADV ANTAGE - HMO) Isauro Tiwari [id number] Isauro Tiwari Notes Date Note Type Note [...] .................. .................. .................. .................. .................. .................. ............... Valet Runner Note From Arben Gallo: Pt co rash on face and back. Denies cp sob dizziness headaches pain nausea vomiting or diarrhea. Baseline vitals assessed. Pictures taken of rash and uploaded. [facility] contacted and advised to make appt with pcp for further testing. Pt education on signs indicating the ER. Valet Runner Allergies: Aspirin .................. .................. .................. .................. .................. .................. .................. ............... Disposition: Fulfilled Sherin Sow MD [address] [place] [address],[address], [place], [address], MARIELLE PARK 08/09/2023 20:56:44
== END 2024-12-27 12:22 | disposition home or self-care (01) ==
LOC: HO.HUSH 11:38
PROVIDERS: PCP Internal Medicine; Visit Provider Urology
DX: Z13.9 Encounter for screening, unspecified (principal)

== ENCOUNTER → 2024-12-27 11:38 | Outpatient (BNVA) | payer OTHER, SELFPAY | PROVIDERS: PCP Internal Medicine; Visit Provider Urology | DX: N40.1 Benign prostatic hyperplasia with lower urinary tract symptoms (principal); N13.8 Other obstructive and reflux uropathy; N32.81 Overactive bladder | CPT/HCPCS: 51798; 81003; 99212 ==

== ENCOUNTER 2025-03-07 17:04 | Emergency (ER) | payer OTHER, SELFPAY ==
[2025-03-07 16:40] VITALS: BP 170/90; BP 181/109; PULSE 60; PULSE 62; RESP 19; TEMP 36.8; O2SAT 100; O2SAT 99; BMI 27.1
[2025-03-07 16:44] VITALS: BP 181/109; PULSE 62; RESP 19; TEMP 36.8; O2SAT 100
--- NOTE | 2025-03-07 16:44 | ED.BACK ---
HPI - Back Pain/Injury General Chief Complaint: Back Pain/Injury Stated Complaint: vomitting and lower back pain Time Seen by Provider: 03/07/25 16:36 Source: patient Mode of arrival: EMS Limitations: no limitations History of Present Illness ED Provider: HPI Narrative: Patient with chronic low back pain comes here for pain in the lower lumbar area history of same in the past pain started earlier today no recent injury or fall patient was seen here 3 months ago for similar pain no history of kidney stone no urinary symptoms Related Data Home Medications ?Medication ?Instructions ?Recorded ?Confirmed acetaminophen 650 mg 650 mg PO Q8H PRN 11/04/20 10/03/24 tablet,extended release hydrochlorothiazide 12.5 mg capsule 12.5 mg PO DAILY 11/04/20 10/03/24 Previous Rx's ?Medication ?Instructions ?Recorded cyclobenzaprine 5 mg tablet 5 mg PO TID PRN muscle spasm or 10/31/24 pain #14 tabs ibuprofen 400 mg tablet 400 mg PO TID PRN fever or pain 10/31/24 #30 tabs solifenacin 5 mg tablet 5 mg PO DAILY 30 days #30 tabs 12/27/24 tamsulosin 0.4 mg capsule 0.4 mg PO DAILY 90 days #90 caps 12/27/24 cyclobenzaprine 5 mg tablet 5 mg PO TID PRN muscle spasm #20 03/07/25 tabs tramadol 50 mg tablet 50 mg PO Q8-10H PRN pain #20 tabs 03/07/25 Allergies Allergy/AdvReac Type Severity Reaction Status Date / Time aspirin (ASPIRIN) Allergy Mild BLEEDING Verified 03/07/25 16:43 diclofenac Allergy Unknown unsure if Verified 03/07/25 16:43 this is accurate Review of Systems Review of Systems: Yes all other systems are reviewed and are negative [facility] Past Medical History Medical History BPH (benign prostatic hyperplasia) HTN (hypertension) Early satiety Surgical History History of esophagogastroduodenoscopy (EGD) H/O colonoscopy History of prostate surgery Family History Family History Family/Other Prostate cancer Cancer Social History Social History Household Members: Family and Children Alcohol intake: current Alcohol intake frequency: does not drink Patient Tobacco Use Status: Current everyday Tobacco user Tobacco use type: Cigarette Cigarettes Per Day: 8 Smoked in Last 30 Days: Yes Use of substances other than those prescribed or required for medical reasons: No Advance Directives: No Advance Directives Information Provided: Yes Do you have a plan to hurt others: No Plan Physical Exam Vital Signs: Vital Signs: Last Vital Signs Temp 97.4 F 03/07/25 19:43 Pulse 56 03/07/25 19:43 Resp 16 03/07/25 19:43 BP 163/94 H 03/07/25 19:43 Pulse Ox 94 03/07/25 19:43 O2 Del Method Room Air 03/07/25 19:43 BMI result Body Mass Index 27.1 Appearance: Alert. Oriented X3. No acute distress. Eyes: no pallor or icterus ENT: Pharynx normal Oral Mucosa moist tympanic membrane intact no erythema, Neck: Normal inspection. Neck supple. CVS: Normal heart rate and rhythm. Pulses normal. Respiratory: No respiratory distress. Equal air entry bilateral, no wheezing/rales/rhonchi Abd: soft, not tender Back; diffuse paralumbar spine tenderness no midline tenderness SLR negative bilateral no rash Skin: Skin warm and dry. Normal skin color. Normal skin turgor. Extremities: No lower extremity edema, no calf tenderness Neuro: Oriented X 3. Medications Administered Discontinued Medications Generic Name Dose Route Start Last Admin Trade Name Freq PRN Reason Stop Dose Admin Cyclobenzaprine HCl 10 mg 03/07/25 16:44 03/07/25 16:51 Cyclobenzaprine Hcl 10 Mg Tablet PO 03/07/25 16:45 10 mg ONCE ONE Administration Ketorolac Tromethamine 30 mg 03/07/25 16:44 03/07/25 16:52 Ketorolac Tromethamine 30 Mg/Ml Vial IM 03/07/25 16:45 30 mg ONCE ONE Administration Oxycodone HCl 10 mg 03/07/25 16:46 03/07/25 16:52 Oxycodone Hcl Immed Release 5 Mg Tablet PO 03/07/25 16:47 10 mg ONCE ONE Administration Medical Decision Making Medical Decision Making MDM Narrative: Patient with left lower lumbar pain no injury no midline tenderness no signs of spinal cord involvement will give analgesics and muscle relaxant patient is ambulatory in the ED will discharge patient home Discharge Plan Discharge Clinical Impression: Strain of lumbar region Patient Disposition: Home, Self-Care Instructions: Low Back Strain (ED) Additional Instructions: Rest at home Take pain medication and muscle relaxant as prescribed Follow up with your PCP Prescriptions: New cyclobenzaprine 5 mg tablet 5 mg PO TID PRN (Reason: muscle spasm) Qty: 20 0RF tramadol 50 mg tablet 50 mg PO Q8-10H PRN (Reason: pain) Qty: 20 0RF No Action ibuprofen 400 mg tablet 400 mg PO TID PRN (Reason: fever or pain) Qty: 30 0RF cyclobenzaprine 5 mg tablet 5 mg PO TID PRN (Reason: muscle spasm or pain) Qty: 14 0RF hydrochlorothiazide 12.5 mg capsule 12.5 mg PO DAILY acetaminophen 650 mg tablet extended release 650 mg PO Q8H PRN tamsulosin 0.4 mg capsule 0.4 mg PO DAILY 90 Days Qty: 90 1RF solifenacin 5 mg tablet 5 mg PO DAILY 30 Days Qty: 30 2RF Interventions: ED Discharge Assessment Last Done: 03/07/25 19:43 Discharge Date/Time: 03/07/25 19:46 Print Language: Tamazight
[2025-03-07] MEDS: oxyCODONE HCl Immed Release 5 MG TABLET 10 MG PO (16:52)
--- OUTSIDE RECORDS SUMMARY | 2025-03-07 17:10 | XMS_ITS | Clinical Summary ---
Author Organization [employer] Address [address] [facility] [address] [place] [address] Care Team Providers Care Husbandry Technician Name Role Phone Estrella Beck MD Primary Care Provider [phone] Allergies Active Allergy Reactions Criticality Noted Date Comments Aspirin 10/28/2010 Other reaction(s): unspecified Medications tamsulosin (Flomax) 0.4 MG 24 hr capsuleIndicatio ns:Benign prostatic hyperplasia with nocturia Take 1 capsule (0.4 mg) by mouth in the morning. 30 capsule 11 3 Active famotidine (Pepcid) 20 MG tabletIndication s:Epigastric pain Take 1 tablet (20 mg) by mouth 2 times daily. 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 Benign prostatic hyperplasia with nocturia 12/05 Tubular adenoma of colon 10/06/2014 Benign prostatic hyperplasia 05/19/2014 Erectile dysfunction 04/25/2012 Hypercholesterolemia 04/25/2012 Hypertension 04/25/2012 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 Encounters Date Type Department Care Team Description 12/25/2024 10:30 AM EDT Office Visit [facility] [address] [place] [address] Estrella Beck MD Primary hypertension (Primary Dx); Hypercholesterolemia; Primary osteoarthritis involving multiple joints; Muscle spasm; Aortic valve stenosis, etiology of cardiac valve disease unspecified 12/25/2024 Travel 12/16/2024 Refill [facility] [address] [place] [address] Estrella Beck MD from Last 3 Months Immunizations Immunization Administration Dates Next Due Moderna Covid-19 Vaccine 12+ 11/29/2021,11/05/19,10/07/2020 Tdap 06/27/2016 Social History Tobacco Use Types [...] the past 12 months, has t he [employer], gas, oil or water company threatened to shut off services in your home? No 06/14/2023 Sex and Gender Information Value Date Recorded Sex Assigned at Male 05/30/2022 10:15 AM EDT Legal Sex Male 10:15 AM EDT Gender Identity Male 05/30/2022 10:15 AM EDT Sexual Orientation Straight 05/30/2022 10 :15 AM EDT Last Filed Vital Signs Vital Sign Reading Time Taken Comments Blood Pressure 130/94 12/25/2024 10:43 AM EDT Pulse 70 12/25/2024 10:43 AM EDT Temperature 36.7 C (98 F) 12/25/2024 10:32 AM EDT Respiratory Rate 20 12/25/2024 10:32 AM EDT Oxygen Saturation 98% 12/25/2024 10:32 AM EDT Inhaled Oxygen Concentration - - Weight 74.4 kg (164 lb) 12/25/2024 10:32 AM EDT Height 165.3 cm (5' 5.06 ) 12/25/2024 10:32 AM E DT Body Mass Index 27.24 12/25/2024 10:32 AM EDT Plan of Treatment Upcoming Encounters Date Type Department Care Team (Late st Contact Info) Description 03/27/2025 10:30 AM EDT Office Visit [facility] [address] [place] [address] Estrella Beck MD [address] [place] [address] Health Maintenance Due Date Last Done Comments Depression Screening 1942 Alcohol/Substance Use Screening 1954 RSV Patients and Patients Aged 60 years or older (1 - 1-dose 75+ series) 2017 SDOH Screening 06/14/2024 06/14/2023 Influenza Vaccine (#1) 2025 COVID-19 Vaccine ( - 2023-2 5 season) 2025 11/29/2021, 11/04/2020, 10/07/2020 Postponed from 03/31/2024 (Patient Refused) Pneumococcal Vaccine: 50+ Years (1 of 2 - PCV) 09/19/2025 Postponed from 06/30 (Patient Refused) Zoster Vaccines (1 of 2) 09/19/2025 Pos tponed from 1992 (Patient Refused) Tobacco Screening 12/25/2025 12/25/2024 DTaP/Tdap/Td Vaccines (2 - T d or [...] patient's age to complete this topic Meningococcal B Vaccine Aged Out No l onger eligible based on patient's age to complete [...] 09/19/2024 10:52 AM EST Hypercholesterolemia Primary hypertension from Last 3 Months or Most Recently Relevant to Health Maintenance Results * (ABNORMAL) Lipid Panel, Standard (09/19/2024 10:52 AM EST) Triglycerides 87 <150 mg/dL [facility] Comment:Desirable Triglyceri de: less than 150 mg/dLBorderline High Triglyceride 150-199 mg/dLHigh Triglyceride: 200-499 mg/dLVery High Triglyceride: greater than or equal to 5OO mg/dL Cholesterol 188 <200 mg/dL [facility] Comment:Desirable Cholestero l: less than 200 mg/dLBorderline High Cholesterol: 200-239 mg/dLHigh Cholesterol: greater than 239 mg/dL LDL Cholesterol Calculated 132(H) <100 mg/dL [facility] Comment:Desirable LDL: less than 100 mg/dLNear Optimal/Above Optimal LDL: 110- 129 mg/dLBorderline High LDL: 130-159 mg/dLHigh LDL: 160-189 mg/dLVery High LDL: greater than or equal to 190 mg/dL HDL Cholesterol 39(L) >40 mg/dL [facility] Comment:Desirable HDL: great er than 40 mg/dL Note: This HDL assay may give artificially low results in patients with liver disease. Blood Venous blood specimen / Unknown 09/19/2024 10:52 AM EST 09/19/2024 2:06 PM EST us Thevenin Beauzile MD LAB BLOOD ORDERABLES Final Result [facility] [address] [facility] [place] [address] [phone] from Last 3 Months or Most Recently Relevant to Health Maintenance Insurance [facility] INTERMEDIATE OPTIONS (HMO D-SNP) [place] [id number] Care Teams Husbandry Technician Relationship Specialty Start Date End Date Estrella Beck MD [address] [place] [address] [place] PCP - General Internal Medicine 07/31/18
[2025-03-07 18:25] VITALS: BP 163/94; PULSE 56; RESP 16; TEMP 36.3; O2SAT 94
[2025-03-07 19:43] VITALS: BP 163/94; PULSE 56; RESP 16; TEMP 36.3; O2SAT 94
== END 2025-03-07 19:46 | disposition home or self-care (01) ==
PROVIDERS: Emergency Provider Internal Medicine; PCP Internal Medicine
DX: S39.012A Strain of muscle, fascia and tendon of lower back, initial encounter (principal); X58.XXXA Exposure to other specified factors, initial encounter; Y93.9 Activity, unspecified; Y92.9 Unspecified place or not applicable; Y99.9 Unspecified external cause status
CPT/HCPCS: 96372; 99284; J1885

== ENCOUNTER 2025-04-01 12:40 | Outpatient (AMB) | payer OTHER, SELFPAY ==
--- NOTE | 2025-04-01 12:51 | MHC.OFFVIS ---
Intake Visit Reasons: 3M/UA/PVR Intake Note: Patient is present for 3 MO follow up Urology Medication:TAMSULOSIN,FINASTERIDE,TRAMADOL Antibiotic Allergy:NONE Blood Thinner:NONE TODAY'SPVR:141 [employer] Computer Consultant Required: No Accompanied by: Self / Same As Patient Allergies aspirin (ASPIRIN) Allergy (Mild, Verified 04/01/25 12:53) BLEEDING diclofenac Allergy (Unknown, Verified 04/01/25 12:53) unsure if this is accurate HPI Comments Details: Isauro is very pleasant male. He is seen for the following urologic conditions - lower urinary tract symptoms - hematuria Chilean translation provided by qualified biomedical engineering professor One year after procedure Adequate stream Effective emptying Completing three-month trial of tamsulosin and solifenacin for bladder instability and nocturia x3 Does not think medication has been that successful Is not using solifenacin daily Encourage daily solifenacin use Office follow-up cystoscopy Lower urinary tract symptoms Longstanding Prior therapy finasteride and tamsulosin Prior procedure on prostate Family history of prostate cancer Prior episode of hematuria Imaging - 02/19 renal bladder ultrasound with bilateral renal cysts and enlarged prostate 72 g 12/21 GreenLight laser Procedure effective in managing emptying symptoms. Good stream. Effective emptying. Has storage symptoms. [facility] Medical History BPH (benign prostatic hyperplasia) HTN (hypertension) Early satiety Surgical History History of esophagogastroduodenoscopy (EGD) H/O colonoscopy History of prostate surgery Family History Family/Other Prostate cancer Cancer Social History Household Members: Family and Children Alcohol intake: current Alcohol intake frequency: does not drink Patient Tobacco Use Status: Current everyday Tobacco user Tobacco use type: Cigarette Cigarettes Per Day: 8 Review of Systems Const Denies chills and Denies fever(s) Card Reports no additional complaints and Denies syncope Resp Denies cough GI Denies abdominal pain and Denies heartburn Reports as per HPI and Denies change in libido Neuro Denies syncope Psych Denies change in libido Endo Denies change in libido Physical Exam Const General: cooperative, healthy appearing, comfortable and no acute distress Orientation/consciousness: patient oriented x3 HEENT Face and sinus: Yes normal facial exam Mouth: moist mucous membranes Neck Neck: Yes normal visual inspection, Yes full ROM and Yes trachea midline Chest Chest palpation & inspection: normal inspection of the chest Resp Effort & Inspection: normal respiratory effort, able to speak in complete sentences and no respiratory distress GI Inspection: Yes normal to inspection Back/Spine/Pelvis Cervical Spine: normal cervical lordosis Thoracic/Lumbar Spine: thoracic and lumbar spine normal to inspection Skin General skin exam: no rashes or lesions noted Neuro General: patient oriented x3, gait normal, tone normal and moves all extremities Extrem General: Yes normal to inspection and Yes capillary refill normal Assessment & Plan Assessment & Plan (1) BPH w urinary obs/LUTS: Code(s): N40.1 - Benign prostatic hyperplasia with lower urinary tract symptoms; N13.8 - Other obstructive and reflux uropathy Category: Medical (2) Overactive bladder: Code(s): N32.81 - Overactive bladder Category: Medical Plan Office cystoscopy Medications: Refilled solifenacin 5 mg PO DAILY 30 tabs 2RF 30 days N32.81 - Overactive bladder Patient Instructions: This note is constructed using voice recognition software. While every effort has been made to ensure accuracy erp implementation consultant errors may have been included. Imaging studies, laboratory and physical exam results were discussed and reviewed in detail. No major barriers to patient understanding were identified. An opportunity to ask questions regarding the treatment plan was provided. All questions were answered. The patient expressed understanding and agreement with the above treatment plan. The patient is aware they should contact our office by phone for worsening of their current condition or the appearance of new urologic symptoms. Compliance is encouraged with any medications and followup testing that is ordered. It is a privilege to participate in the urologic care of your patient. If you have any questions or concerns regarding treatment for the above conditions, or other urologic issues, please do not hesitate to contact me. The office telephone contact is [phone]. Sincerely, Dr Joaquin Alvarez MD, [facility] - Urology Compassionate Specialist Care for the Genitourinary System Coding Level of Care Code Est Pt Level 3 (16078) Complex EM visit Add On G2211 Diagnoses BPH w urinary obs/LUTS N40.1; N13.8 Overactive bladder N32.81
--- OUTSIDE RECORDS SUMMARY | 2025-04-01 13:53 | XMS_ITS | Clinical Summary ---
Author Organization [employer] Address [address] [facility] [address] [place] [address] Care Team Providers Care Package Crimper Name Role Phone Estrella Beck MD Primary Care Provider [phone]- [phone] Allergies Active Allergy Reactions Criticality Noted Date [...] Encounters Date Type Department Care Team Description 03/20/2025 11:15 AM EDT Office Visit [facility] [address] [place] [address] Estrella Beck MD Lumbar radiculopathy (Primary Dx); Primary osteoarthritis involving multiple joints; Primary hypertension 03/20/2025 Travel 03/20/2025 Orders Only [facility] [address] [place], [place] [phone] ProviderCinthya MD 03/19/2025 Telephone [facility] [address] [place], [place] [phone] Estrella Beck MD 03/11/2025 Telephone [facility] [address] [place] [address] Estrella Beck MD ER Follow-up from Last 3 Months Immunizations Immunization Administration Dates Next Due Moderna Covid-19 Vaccine 12+ 11/29/2021,11/05/19,10/07/2020 Tdap 06/27/2016 Social History Tobacco Use Types Packs/Day Years Used Date Smoking Tobacco: Every Day Cigarettes 0.5 60 Passive Smoke Exposure: Current Smokeless Tobacco: Never Tobacco Cessation:Ready to Q uit: Not Asked; Counseling Given: Not Answered Depression Answer Date Recorded Patient Health Questionnaire-9 Score 1 03/20/2025 Patient Health Questionnaire-9 Score 1 03/20/2025 Last PHQ-9: Questionnaire Data Not on file 0 03/20/2025 Housing Stability Answer Date Recorded What is your housing situation today? I have tawandalili fitzgerald 03/20/[address] you li ve. Do you have problems with any of the following? None of the above 03/20/2025 Food Insecurity Answer Date Recorded Within the past 12 months, y ou worried that your food would run out before you got money to buy more: Never True 03/20/2025 Within the past 12 months,th e food you bought just didn't last and you didn't have enough money to get more: Never True Transportation Answer Date Recorded In the past 12 months, has l ack of transportation kept you from medical appts, meetings, work or from getting things needed for daily living? No 03/20/2025 Utilities Answer Date Recorded In the past 12 months, has t he electric, gas, oil or water company threatened to shut off services in your home? No 03/20/2025 Depression Answer Date Recorded Patient Health Questionnaire-2 Score 0 03/20/2025 Internet Access Answer Date Recorded Internet Access Q1 Yes 03/20/2025 Internet Access Q2 Not on file 03/20/2025 Sex and Gender Information Value Date Recorded Sex Assigned at Male 05/30/2022 10:15 AM EDT Legal Sex Male 10:15 AM EDT Gender Identity Male 05/30/2022 10:15 AM EDT Sexual Orientation Straight 05/30/2022 10 :15 AM EDT Last Filed Vital Signs Vital Sign Reading Time Taken Comments Blood Pressure 148/101 03/20/2025 11:14 AM EDT Pulse 80 03/20/2025 11:14 AM EDT Temperature 36.7 C (98 F) 12/25/2024 10:32 AM EDT Respiratory Rate 20 03/20/2025 11:14 AM EDT Oxygen Saturation 98% 03/20/2025 11:14 AM EDT Inhaled Oxygen Concentration - - Weight 73.9 kg (163 lb) 03/20/2025 11:14 AM EDT Height 165.3 cm (5' 5.06 ) 03/20/2025 11:14 AM E DT Body Mass Index 27.07 03/20/2025 11:14 AM EDT Plan of Treatment Health Maintenance Due Date Last Done Comments RSV Patients and Patients Aged 60 years or older (1 - 1-dose 75+ series) 2017 Influenza Vaccine (#1) 2025 COVID-19 Vaccine (4 - 2023-2 5 season) 2025 11/29/2021, 11/04/2020, 10/07/2020 Postponed from 03/31/2024 (Patient Refused) Pneumococcal Vaccine: 50+ Years (1 of 2 - PCV) 09/19/2025 Postponed from 06/30 (Patient Refused) Zoster Vaccines (1 of 2) 09/19/2025 Pos tponed from 1992 (Patient Refused) Alcohol/Substance Use Screening 03/20/2026 03/20/2025 Depression Screening 03/20/2026 03/20/2025, 03/20/2025 SDOH Screening 03/20/2026 03/20/2025 Tobacco Screening 03/20/2026 03/20/2025 DTaP/Tdap/Td Vaccines (2 - T d or [...] 10:52 AM EST) Triglycerides 87 <150 mg/dL [facility] Comment:Desirable Triglyceri de: less than 150 mg/dLBorderline High Triglyceride 150-199 mg/dLHigh Triglyceride: 200-499 mg/dLVery High Triglyceride: greater than or equal to 5OO mg/dL Cholesterol 188 <200 mg/dL [facility] Comment:Desirable Cholestero l: less than 200 mg/dLBorderline High Cholesterol: 200-239 mg/dLHigh Cholesterol: greater than 239 mg/dL LDL Cholesterol Calculated 132(H) <100 mg/dL [facility] Comment:Desirable LDL: less than 100 mg/dLNear Optimal/Above Optimal LDL: 110- 129 mg/dLBorderline High LDL: 130-159 mg/dLHigh LDL: 160-189 mg/dLVery High LDL: greater than or equal to 190 mg/dL HDL Cholesterol 39(L) >40 mg/dL [facility] Comment:Desirable HDL: great er than 40 mg/dL Note: This HDL assay may give artificially low results in patients with liver disease. Blood Venous blood specimen / Unknown 09/19/2024 10:52 AM EST 09/19/2024 2:06 PM EST Estrella Beck MD LAB BLOOD ORDERABLES Final Result [facility] [address] [place] [address] [phone] from Last 3 Months or Most Recently Relevant to Health Maintenance Insurance [facility] [employer] OPTIONS (O D-SNP) [place] [id number] Care Teams Package Crimper Relationship Specialty Start Date End Date Estrella Beck MD [address] [place] [address] PCP - General Internal Medicine 07/31/18
--- OUTSIDE RECORDS SUMMARY | 2025-04-01 13:53 | XMS_ITS | Encounter Summary ---
Author Organization [employer] Address [address] [facility] 7[address] [place] [address] Care Team Providers Care Bobcat Driver/Labor Name Role Phone Estrella Beck MD Primary Care Provider [phone] Encounter Details Date Type Department Care Team (Late st Contact Info) Description 03/20/2025 Orders Only [facility] [address] [place] [address] Provider, MD Cinthya Social History Tobacco Use Types Packs/Day Years Used Date Smoking Tobacco: Every Day Cigarettes 0.5 60 Passive Smoke Exposure: Current Smokeless Tobacco: Never Depression Answer Date Recorded Patient Health Questionnaire-9 Score 1 03/20/2025 Patient Health Questionnaire-9 Score 1 03/20/2025 Last PHQ-9: Questionnaire Data Not on file 0 03/20/2025 Housing Stability Answer Date Recorded What is your housing situation today? I have tawanda fitzgerald 03/20/[address] you [...] AM EDT documented as of this encounter Functional Status * Over the past 2 weeks, how often have you been bothered by any of the following problems? Question Answer Date of Assessment Author Patient Health Questionnaire-2 Score 0 03/01 11:26 AM EDT Ana Harris MA * Little interest or pleasure in doing things Answer Date of Assessment Author Not at all 03/20/2025 11:26 AM EDT Kiara Harris MA * Feeling down, depressed, or hopeless Answer Date of Assessment Author Not at all 03/20/2025 11:26 AM EDT Kiara Harris MA * Trouble falling or staying asleep, or sleeping too much Answer Date of Assessment Author Several days 03/20/2025 11:26 AM EDT Kiara Harris MA * Feeling tired or having little energy Answer Date of Assessment Author Not at all 03/20/2025 11:26 AM EDT Kiara Harris MA * Poor appetite or overeating Answer Date of Assessment Author Not at all 03/20/2025 11:26 AM EDT Kiara Harris MA * Feeling bad about yourself - or that you are a failure or have let yourself or your family down Answer Date of Assessment Author Not at all 03/20/2025 11:26 AM EDKiara Shirley MA * Trouble concentrating on things, such as reading the newspaper or watching television Answer Date of Assessment Author Not at all 03/20/2025 11:26 AM ROMINAT Kiara Harris MA * Moving or speaking so slowly that other people could have noticed? Or the opposite - being so fidgety or restless that you have been moving around a lot more than usual. Answer Date of Assessment Author Not at all 03/20/2025 11:26 AM EDT Kiara Harris MA * Thoughts that you would be better off or hurting yourself in some way Answer Date of Assessment Author Not at all 03/20/2025 11:26 AM EDT Kiara Harris MA * Patient Health Questionnaire-9 Score Answer Date of Assessment Author 1 03/20/2025 11:26 AM EDT Kiara Harris MA * How difficult have these problems made it for you to do your work, take care of things at home, or get along with other people? Answer Date of Assessment Author Not difficult at all 03/20/2025 11:26 AM EDT Ana Montgomery MA documented as of this encounter Plan of Treatment Not on file documented as of this encounter Procedures Procedure Name Priority Date/Time Associated Diagnosis Comments ECG 12-LEAD Routine 10/31/2024 9:17 AM EDT documented in this encounter Results * ECG 12 lead (10/31/2024 9:17 AM EDT) us Historical Provider ECG ORDERABLES Final Res ult documented in this encounter Visit Diagnoses Not on filedocumented in this encounter Additional Health Concerns Assessment Noted Time PHQ-9 Depression Total Score: 1 03/20/20 25 11:26 AM EDT documented as of this encounter Care Teams Bobcat Driver/Labor Relationship Specialty Start Date End Date Estrella Beck MD [address] [place] [id number] PCP - General Internal Medicine 07/31/18 documented as of this encounter
== END 2025-04-01 13:26 | disposition home or self-care (01) ==
LOC: HO.HUSH 12:41
PROVIDERS: PCP Internal Medicine; Visit Provider Urology
DX: N40.1 Benign prostatic hyperplasia with lower urinary tract symptoms (principal); N13.8 Other obstructive and reflux uropathy; N32.81 Overactive bladder; Z13.9 Encounter for screening, unspecified
CPT/HCPCS: 99213; G2211

== ENCOUNTER → 2025-04-01 12:40 | Outpatient (BNVA) | payer OTHER, SELFPAY | PROVIDERS: PCP Internal Medicine; Visit Provider Urology | DX: N40.1 Benign prostatic hyperplasia with lower urinary tract symptoms (principal); N32.81 Overactive bladder; N13.8 Other obstructive and reflux uropathy | CPT/HCPCS: 51798; 81003; 99212 ==

== ENCOUNTER 2025-05-27 09:55 | Outpatient (AMB) | payer OTHER, SELFPAY ==
--- NOTE | 2025-05-27 09:58 | A.OFFVIS_ITS ---
Intake Visit Reasons: Cystoscopy Intake Note: Patient is present for Cystoscopy Urology Medication:Tamsulosin,Vesicare Antibiotic Allergy:NONE Blood Thinner:NONE Last PVR:141 MLS Lead Nuclear Medicine Technologist Required: No Accompanied by: Self / Same As Patient Allergies aspirin (ASPIRIN) Allergy (Mild, Verified 04/01/25 12:53) BLEEDING diclofenac Allergy (Unknown, Verified 04/01/25 12:53) unsure if this is accurate HPI Comments Details: Isauro is very pleasant male. He is seen for the following urologic conditions - lower urinary tract symptoms - hematuria Slovak translation provided by qualified medical services coordinator One year after procedure Adequate stream Effective emptying Has done over bladder urgency and frequency Was encouraged to use solifenacin daily Here for follow-up cystoscopy Open bladder neck Trabeculation +2 Continue with overactive bladder medications Lower urinary tract symptoms Longstanding Prior therapy finasteride and tamsulosin Prior procedure on prostate Family history of prostate cancer Prior episode of hematuria Imaging - 02/19 renal bladder ultrasound with bilateral renal cysts and enlarged prostate 72 g 12/21 GreenLight laser Procedure effective in managing emptying symptoms. Good stream. Effective emptying. Has storage symptoms. [facility] Medical History BPH (benign prostatic hyperplasia) HTN (hypertension) Early satiety Surgical History History of esophagogastroduodenoscopy (EGD) H/O colonoscopy History of prostate surgery Family History Family/Other Prostate cancer Cancer Social History Household Members: Family and Children Alcohol intake: current Alcohol intake frequency: does not drink Patient Tobacco Use Status: Current everyday Tobacco user Tobacco use type: Cigarette Cigarettes Per Day: 8 Review of Systems Const Denies chills and Denies fever(s) Card Reports no additional complaints and Denies syncope Resp Denies cough GI Denies abdominal pain and Denies heartburn Reports as per HPI and Denies change in libido Neuro Denies syncope Psych Denies change in libido Endo Denies change in libido Physical Exam Const General: cooperative, healthy appearing, comfortable and no acute distress Orientation/consciousness: patient oriented x3 HEENT Face and sinus: Yes normal facial exam Mouth: moist mucous membranes Neck Neck: Yes normal visual inspection, Yes full ROM and Yes trachea midline Chest Chest palpation & inspection: normal inspection of the chest Resp Effort & Inspection: normal respiratory effort, able to speak in complete sentences and no respiratory distress GI Inspection: Yes normal to inspection Back/Spine/Pelvis Cervical Spine: normal cervical lordosis Thoracic/Lumbar Spine: thoracic and lumbar spine normal to inspection Skin General skin exam: no rashes or lesions noted Neuro General: patient oriented x3, gait normal, tone normal and moves all extremities Extrem General: Yes normal to inspection and Yes capillary refill normal Office Procedures Cystoscopy Consent Discussed risk and benefit or proposed procedure with the patient. Information consent for procedure given to the patient. Discussed technical aspects, risks, benefits and alternatives in full. Addressed all of the patient's questions and concerns regarding the procedure. The patient demonstrated knowledge and understanding. They wish to proceed with this procedure. Preparation The patient was prepped in the usual manner. A bio medical technician was present and in the room. Genitalia was prepped with betadine solution in a sterile manner. Lidocaine Jelly 2% was placed into the urethra and 16Fr flexible Olympus cystoscope was inserted into the meatus after adequate lubrication. Procedure Consent confirmed Genitalia prepped and draped using topical antiseptic and lidocaine jelly Clamp placed on penile glans to allow adequate dwell contact time with anesthetic Cystoscopy performed using a sterile disposable Urovue digital 16 Grenadian cystoscope Meatus circumcised Urethra anterior and posterior urethra normal Prostatic Urethra open bladder neck Bladder examination with retroflexion of cystoscope Bladder Orifices normal shape and position Bladder Capacity Normal Trabeculations grade 1/2 Cellule Formation small Diverticulum Formation None Mucosal Erythema None Bladder Tumor None Patient tolerated procedure [id number] DISPOSABLE SCOPE URO-G FLEXIBLE SCOPE Procedure code (CPT) selection complete Office Meds lidocaine HCl 2 % mucosal jelly in applicator Performing Provider: Joaquin Alvarez MD Performing Location: [facility] Administered by: Luis Salgado LPN on 05/27/25 10:25 Dose Route Admin Location Dispensed Lot Number Expiration Date ND Gas Station Manager 10 mL intra-urethral 10 mL nitrofurantoin monohydrate/macrocrystals 100 mg capsule Performing Provider: Joaquin Alvarez MD Performing Location: [facility] Administered by: Luis Salgado LPN on 05/27/25 10:25 Dose Route Admin Location Dispensed Lot Number Expiration Date NDC Gas Station Manager 100 mg PO 1 cap Results AMB Urinalysis, Automated UA Leukoctes 15 Analisa/uL Last Edit by Mely Mazariegos [facility] on 05/27/25 13:22 UA Nitrite Negative Last Edit by Melyshyann Mazariegos, [facility] on 05/27/25 13:22 UA Urobilinogen 0.2 mg/dL Last Edit by Mely Colon, [facility] on 05/27/25 13:22 UA Protein 30 mg/dL Last Edit by Mely Colon, [facility] on 05/27/25 13:22 UA pH 6.0 Last Edit by Mely Colon, [facility] on 05/27/25 13:22 UA Blood 80 Shaka/uL Last Edit by Mely Colon, [facility] on 05/27/25 13:22 UA Specific [facility] 1.015 Last Edit by Melytoan Mazariegos, [facility] on 05/27/25 13:2 2 UA Ketone Negative Last Edit by Mely Mazariegos, [facility] on 05/27/25 13:22 UA Bilirubin 0 mg/dL Last Edit by Mely Colon, [facility] on 05/27/25 13:22 UA Glucose 0 mg/dL Last Edit by Mely Yair, [facility] on 05/27/25 13:22 Results Reviewed Results Reviewed: Laboratory Last Values Urine pH (Auto) 6.0 05/27/25 13:21 Specific [facility] (Auto) 1.015 05/27/25 13:21 Urine Protein (Auto) 30 mg/dL 05/27/25 13:21 Glucose (UA)(Auto) 0 mg/dL 05/27/25 13:21 Urine Ketones (Auto) Negative 05/27/25 13:21 Urine Blood (Auto) 80 Shaka/uL 05/27/25 13:21 Urine Nitrite (Auto) Negative 05/27/25 13:21 Urine Bilirubin (Auto) 0 mg/dL 05/27/25 13:21 Urine Urobilinogen (Auto) 0.2 mg/dL 05/27/25 13:21 Leukocyte Esterase (Auto) 15 Analisa/uL 05/27/25 13:21 Assessment & Plan Assessment & Plan (1) Overactive bladder: Code(s): N32.81 - Overactive bladder Category: Medical (2) BPH w urinary obs/LUTS: Code(s): N40.1 - Benign prostatic hyperplasia with lower urinary tract symptoms; N13.8 - Other obstructive and reflux uropathy Category: Medical Plan Switch to fesoterodine starting with less blood brain barrier penetration Orders: Orders AMB Cystoscopy 05/27/25 N40.1 - Benign prostatic hyperplasia with lower urinary tract symptoms, N13.8 - Other obstructive and reflux uropathy, N32.81 - Overactive bladder, R35.1 - Nocturia, R31.9 - Hematuria, unspecified Medications: New fesoterodine ER 8 mg PO DAILY 30 tabs 2RF 30 days N32.81 - Overactive bladder Discontinued solifenacin Discontinued Reason: Doctor's Order 5 mg PO DAILY 30 days 30 tabs 2RF N32.81 - Overactive bladder Patient Instructions: This note is constructed using voice recognition software. While every effort has been made to ensure accuracy materials development engineer errors may have been included. Imaging studies, laboratory and physical exam results were discussed and reviewed in detail. No major barriers to patient understanding were identified. An opportunity to ask questions regarding the treatment plan was provided. All questions were answered. The patient expressed understanding and agreement with the above treatment plan. The patient is aware they should contact our office by phone for worsening of their current condition or the appearance of new urologic symptoms. Compliance is encouraged with any medications and followup testing that is ordered. It is a privilege to participate in the urologic care of your patient. If you have any questions or concerns regarding treatment for the above conditions, or other urologic issues, please do not hesitate to contact me. The office telephone contact is [phone]. Sincerely, Dr Joaquin Alvarez MD, [facility] - Urology Compassionate Specialist Care for the Genitourinary System Coding Level of Care Code Est Pt Level 4 (48259) Diagnoses Overactive bladder N32.81 BPH w urinary obs/LUTS N40.1; N13.8 CPT Codes Cystoscopy - CPT: [id number]-[id number] ([id number])
--- OUTSIDE RECORDS SUMMARY | 2025-05-27 11:42 | XMS_ITS | Patient Health Record ---
Author Organization [facility] Address [address] [place] [id number] Care Team Providers Care Airplane First Officer Name Role Phone Sergio Hauser Unavailable [phone] Reason For Referral No Information Plan Of Treatment No Information
--- OUTSIDE RECORDS SUMMARY | 2025-05-27 11:42 | XMS_ITS | Clinical Summary ---
Author Organization [employer] Address [address] [place] [address] Care Team Providers Care Electromechanisms Design Drafter Name Role Phone Estrella Beck MD Primary Care Provider [phone] Allergies Active Allergy Reactions Criticality Noted Date [...] Description 03/20/2025 11:15 AM EDT Office Visit [facility] [address] [place] [address] Estrella Beck MD Lumbar radiculopathy (Primary Dx); Primary osteoarthritis involving multiple joints; Primary hypertension 03/20/2025 Travel 03/20/2025 Orders Only [facility] [address] [place], [place] [id number] ProviderCinthya MD 03/19/2025 Telephone [facility] [address] [place], [place] [phone] Estrella Beck MD 03/11/2025 Telephone [facility] [address] [place] [address] Estrella Beck MD ER Follow-up from Last [...] older (1 - 1-dose 75+ series) 2017 COVID-19 Vaccine ( - 2024-2 6 season) 2025 11/29/2021, 11/04/2020, 10/07/2020 Influenza Vaccine (#1) 2025 Pneumococcal Vaccine: 50+ Years (1 of 2 [...] 10:52 AM EST) Triglycerides 87 <150 mg/dL [facility] Comment:Desirable Triglyceri de: less than 150 mg/dLBorderline High Triglyceride 150-199 mg/dLHigh Triglyceride: 200-499 mg/dLVery High Triglyceride: greater than or equal to 5OO mg/dL Cholesterol 188 <200 mg/dL [facility] Comment:Desirable Cholestero l: less than 200 mg/dLBorderline High Cholesterol: 200-239 mg/dLHigh Cholesterol: greater than 239 mg/dL LDL Cholesterol Calculated 132(H) <100 mg/dL [facility] Comment:Desirable LDL: less than 100 mg/dLNear Optimal/Above Optimal LDL: 110- 129 mg/dLBorderline High LDL: 130-159 mg/dLHigh LDL: 160-189 mg/dLVery High LDL: greater than or equal to 190 mg/dL HDL Cholesterol 39(L) >40 mg/dL [facility] Comment:Desirable HDL: great er than 40 mg/dL Note: This HDL assay may give artificially low results in patients with liver disease. Blood Venous blood specimen / Unknown 09/19/2024 10:52 AM EST 09/19/2024 2:06 PM EST Estrella Beck MD LAB BLOOD ORDERABLES Final Result [facility] [address] [place] [address] [phone] from Last 3 Months or Most Recently Relevant to Health Maintenance Insurance [facility] INTERMEDIATE OPTIONS (O D-SNP) Care Teams Electromechanisms Design Drafter Relationship Specialty Start Date End Date Estrella Beck MD [address] [facility] [place] [address] PCP - General Internal Medicine 07/31/18
--- OUTSIDE RECORDS SUMMARY | 2025-05-27 11:43 | XMS_ITS | Encounter Summary ---
Author Organization [employer] Address [address] [facility] 7t [place] [address] Care Team Providers Care Photogravure Press Operator Name Role Phone Estrella Beck MD Primary Care Provider [phone] [phone] Encounter Details Date Type Department Care Team (Late st Contact Info) Description 03/20/2025 Orders Only [facility] [address] [place] [address] Provider, MD Cinthya Social History Tobacco Use [...] at all 03/20/2025 11:26 AM EDT Ana Montgoemry MA documented as of this encounter Plan [...] documented as of this encounter Care Teams Photogravure Press Operator Relationship Specialty Start Date End Date Estrella Beck MD [address] [place] [address] PCP - General Internal Medicine 07/31/18 documented as of this encounter
--- OUTSIDE RECORDS SUMMARY | 2025-05-27 11:43 | XMS_ITS | Data Portability ---
Author Organization [facility], [facility] Address [address] [place] [address] Assessment No assessment recorded. Plan of Treatment [...] Body temperature Body weight Heart rate Systolic And Diastolic Provider Name and Address Organization Details Last Updated DateTime 4 99 % 99 % 18 /min 98.2 [degF] 80161.4 56 g 74 /min 154/88 mm[Hg] Not Available [facility] - production 4 17:54:08 Social History None recorded. Functional Status None recorded. Mental Status None recorded. Family History Nothing Reported. Medical History No medical history recorded. Past Encounters Encounter ID Performer Location Encounter Start Date Encounter Closed Date Diagnosis/Indication Diagnosis SNOMED-CT Code Diagnosis ICD10 Code Diagnosis IMO Codes Diagnosis Note [id number] Sherin Sow MD Main - [facility] [address] [place] [phone] 08/09/2023 17:53:59 08/10/2023 09:57:09 Localized eruption of skin [id number] R21 83 year old male being evaluated [...] assessment and plan as documented by the tail dogger. I provided real-time medical direction for this [...] Mcdaniels Member ID Guarantor Name 11/03/2023 1 JOINT [facility] - DOS ON OR AFTER 2022 - DUAL ELIGIBLE - HALF-WAY OPTIONS AND ONE CARE (MEDICARE REPLACEMENT/ADV ANTAGE - HMO) Isauro Tiwari [id number] Isauro Tiwari Notes Date Note Type Note [...] .................. .................. .................. .................. .................. .................. ............... Human Resources Admin Note From Arben Gallo: Pt co rash on face and back. Denies cp sob dizziness headaches pain nausea vomiting or diarrhea. Baseline vitals assessed. Pictures taken of rash and uploaded. [facility] [place] and advised to make appt with pcp for further testing. Pt education on signs indicating the ER. Human Resources Admin Allergies: Aspirin .................. .................. .................. .................. .................. .................. .................. ............... Disposition: Fulfilled Sherin Sow MD [address] [place] [address],[address], [place], [address], [place]LE [place] 08/09/2023 20:56:44
== END 2025-05-27 11:11 | disposition home or self-care (01) ==
LOC: HO.HUSH 09:56
PROVIDERS: PCP Internal Medicine; Visit Provider Urology
DX: N40.1 Benign prostatic hyperplasia with lower urinary tract symptoms (principal); N13.8 Other obstructive and reflux uropathy; N32.81 Overactive bladder; R35.1 Nocturia; R31.9 Hematuria, unspecified
CPT/HCPCS: 52000; 99213

== ENCOUNTER → 2025-05-27 09:55 | Outpatient (BNVA) | payer OTHER, SELFPAY | PROVIDERS: PCP Internal Medicine; Visit Provider Urology | DX: R31.9 Hematuria, unspecified (principal); N32.81 Overactive bladder; N40.1 Benign prostatic hyperplasia with lower urinary tract symptoms; N13.8 Other obstructive and reflux uropathy; R35.1 Nocturia | CPT/HCPCS: 52000; 99212 ==

== ENCOUNTER 2025-06-10 09:27 | Outpatient (AMB) | payer OTHER, SELFPAY ==
--- NOTE | 2025-06-10 09:41 | A.OFFVIS_ITS ---
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 Floor Associate Required: Yes Floor Associate Language: Promotions Assistant Sales Marketing Name: voyce/colombian/ Accompanied by: Self / Same As Patient Allergies aspirin (ASPIRIN) Allergy (Mild, Verified 04/01/25 12:53) BLEEDING diclofenac Allergy (Unknown, Verified 04/01/25 12:53) unsure if this is accurate Medication List - Last Reconciled 06/10/25 by Molina Patel MD acetaminophen ER 650 mg PO Q8H PRN cyclobenzaprine 5 mg PO TID PRN fesoterodine ER 8 mg PO DAILY 30 days hydrochlorothiazide 12.5 mg PO DAILY ibuprofen 400 mg PO TID PRN tamsulosin 0.4 mg PO DAILY 90 days tramadol 50 mg PO Q8-10H PRN HPI Comments Details: Isauro has been referred for cardiac evaluation. A recent echocardiogram had shown [id number]-[id number] aortic stenosis and hence he is referred. Patient himself denies any prior coronary disease or myocardial infarction or cardiomyopathy or in fact any other cardiac concerns. Within limits of his activity, no clear-cut exertional angina type symptoms. He does experience some shortness of breath in the mornings. That could be related to smoking as he still smokes. [facility] Medical History BPH (benign prostatic hyperplasia) HTN (hypertension) Early satiety Surgical History History of esophagogastroduodenoscopy (EGD) H/O colonoscopy History of prostate surgery Family History Family/Other Prostate cancer Cancer Social History Household Members: Family and Children Alcohol intake: current Alcohol intake frequency: does not drink Patient Tobacco Use Status: Current everyday Tobacco user Tobacco use type: Cigarette Cigarettes Per Day: 8 Review of Systems Const Denies chills, Denies fatigue, Denies fever(s), Denies frequent falls, Denies weakness, Denies weight gain and Denies weight loss ENT Denies dizziness Card Denies chest pain, Denies leg edema, Denies lightheadedness, Denies palpitations, Denies dyspnea, Denies dyspnea on exertion and Denies orthopnea Resp Denies cough, Denies dyspnea and Denies dyspnea on exertion GI Denies bloating and Denies change in bowel habits Musc Denies muscle weakness, Denies numbness and Denies tingling Neuro Denies dizziness, Denies frequent falls, Denies numbness, Denies tingling and Denies weakness Endo Denies fatigue and Denies palpitations Physical Exam Vital Signs: Last Vital Signs Pulse 79 06/10/25 09:43 BP 122/70 06/10/25 09:43 BMI result Body Mass Index 27.4 Const General: comfortable and no acute distress Orientation/consciousness: patient oriented x3 HEENT Other: Unremarkable Head: Yes normal to inspection Neck Neck: Yes normal visual inspection Chest Chest palpation & inspection: normal inspection of the chest Resp Auscultation: clear to auscultation bilaterally Cardio Palpation: normal PMI Heart sounds: S1 normal heart sound present, S2 normal heart sound present, no gallops, Murmur heart sound present systolic II/ and at the right sternal border and no rubs GI Palpation (GI): Soft to palpation Back/Spine/Pelvis Other: unremarkable Skin General skin exam: no rashes or lesions noted Neuro General: patient oriented x3 Extrem General: Yes normal to inspection Psych Mental Status: mental status grossly normal Assessment & Plan Assessment & Plan (1) Nonrheumatic aortic (valve) stenosis: Code(s): I35.0 - Nonrheumatic aortic (valve) stenosis Category: Medical Plan: In the echocardiogram, evidence of fnew-nx-lqqjzxxo aortic stenosis. Preserved LVEF at 60-65%. Pathophysiology of aortic stenosis discussed. At this time, no specific interventions. We will recheck in about 6 months' time and after that every 1-2 years. He will eventually be a TAVR candidate. (2) HTN (hypertension): Code(s): I10 - Essential (primary) hypertension Category: Medical Plan: On hydrochlorothiazide. (3) Cigarette smoker: Code(s): F17.210 - Nicotine dependence, cigarettes, uncomplicated Category: Social Hx Plan: We discussed about smoking cessation. Plan Discussion Notes I discussed with the patient that his heart valve disorder is currently not severe and does not require immediate intervention. We will monitor the condition with a follow-up heart ultrasound in six months. I advised the patient to work on smoking cessation as it may be contributing to his shortness of breath. Patient was informed and verbally consented to the use of an ambient scribe for clinic note documentation during this visit. Orders: Orders CA echo transthoracic complete 6 Months I35.0 - Nonrheumatic aortic (valve) stenosis Patient Instructions: - Continue with normal activities unless symptoms worsen. - Schedule a follow-up appointment in six months for a heart ultrasound. - Work on reducing smoking to improve breathing. Coding Level of Care Code New Pt Level 4 (21404) Complex EM visit Add On G2211 Diagnoses Nonrheumatic aortic (valve) stenosis I35.0 HTN (hypertension) I10 Cigarette smoker F17.210
[2025-06-10 09:43] VITALS: BP 122/70; PULSE 79; BMI 27.4
--- OUTSIDE RECORDS SUMMARY | 2025-06-10 10:20 | XMS_ITS | Patient Health Record ---
Author Organization [facility] Address [address] [place] [address] Care Team Providers Care Mill Tender Warm Up Name Role Phone Sergio Hauser Unavailable [phone] Reason For Referral No Information Plan Of Treatment No Information
--- OUTSIDE RECORDS SUMMARY | 2025-06-10 10:20 | XMS_ITS | Data Portability ---
Author Organization [facility] Familytic [facility], [facility] Address [address] [place] [address] Assessment No assessment recorded. Plan of Treatment [...] % 99 % 18 /min 98.2 [degF] 58414.4 56 g 74 /min 154/88 mm[Hg] Not Available [facility] - production 4 17:54:08 Social History None recorded. Functional Status None recorded. Mental Status None recorded. Family History Nothing Reported. Medical History No medical history recorded. Past Encounters Encounter ID Performer Location Encounter Start Date Encounter Closed Date Diagnosis/Indication Diagnosis SNOMED-CT Code Diagnosis ICD10 Code Diagnosis IMO Codes Diagnosis Note [id number] Sherin Sow MD Main - [facility] [address] [place] [phone] 08/09/2023 17:53:59 08/10/2023 09:57:09 Localized eruption of skin 125766917 R21 83 year old male being evaluated [...] assessment and plan as documented by the mapping technician. I provided real-time medical direction for this [...] Mcdaniels Member ID Guarantor Name 11/03/2023 1 [facility] - DOS ON OR AFTER 2022 - DUAL ELIGIBLE - SNF OPTIONS AND ONE CARE (MEDICARE REPLACEMENT/ADV ANTAGE - HMO) Isauro Tiwari [id number] Isauro Tiwari Notes Date Note Type Note [...] .................. .................. .................. .................. .................. .................. ............... E Learning Designer Note From rAben Gallo: Pt co rash on face and back. Denies cp sob dizziness headaches pain nausea vomiting or diarrhea. Baseline vitals assessed. Pictures taken of rash and uploaded. [facility] contacted and advised to make appt with pcp for further testing. Pt education on signs indicating the ER. E Learning Designer Allergies: Aspirin .................. .................. .................. .................. .................. .................. .................. ............... Disposition: Fulfilled Sherin Sow MD [address] [place] [address],[address], [place], [address], MARIELLE PARK 08/09/2023 20:56:44
--- OUTSIDE RECORDS SUMMARY | 2025-06-10 10:20 | XMS_ITS | Clinical Summary ---
Author Organization [employer] Address [address] [facility] 7t [place] [address] Care Team Providers Care Concrete Curer Name Role Phone Estrella Beck MD Primary Care Provider [phone] Allergies Active Allergy Reactions Criticality Noted Date [...] Description 03/20/2025 11:15 AM EDT Office Visit [facility] MED & PEDS [address] [place] [address] Estrella Beck MD Lumbar radiculopathy (Primary Dx); Primary osteoarthritis involving multiple joints; Primary hypertension 03/20/2025 Travel 03/20/2025 Orders Only [facility] MED & PEDS [address] [place], [place] [phone] ProviderCinthya MD 03/19/2025 Telephone [facility] MED & PEDS [address] [place], [place] [phone] Estrella Beck MD 03/11/2025 Telephone [facility] MEDICINE [address] [place] [address] Estrella Beck MD ER Follow-up from Last [...] 03/20/2025 11:14 AM EDT Plan of Treatment Upcoming Encounters Date Type Department Care Team (Late st Contact Info) Description 06/13/2025 2:00 PM EST Office Visit [facility] MED & PEDS [address] [place] [address] Ginger Orozco, BECKY [address] [place] [address] Health Maintenance Due Date Last Done Comments RSV Patients and Patients Aged 60 years or older (1 - 1-dose 75+ series) 2017 COVID-19 Vaccine (2024-2 6 season) 2025 11/29/2021, 11/04/2020, 10/07/2020 Influenza [...] 10:52 AM EST) Triglycerides 87 <150 mg/dL [facility] Comment:Desirable Triglyceri de: less than 150 mg/dLBorderline High Triglyceride 150-199 mg/dLHigh Triglyceride: 200-499 mg/dLVery High Triglyceride: greater than or equal to 5OO mg/dL Cholesterol 188 <200 mg/dL [facility] Comment:Desirable Cholestero l: less than 200 mg/dLBorderline High Cholesterol: 200-239 mg/dLHigh Cholesterol: greater than 239 mg/dL LDL Cholesterol Calculated 132(H) <100 mg/dL [facility] Comment:Desirable LDL: less than 100 mg/dLNear Optimal/Above Optimal LDL: 110- 129 mg/dLBorderline High LDL: 130-159 mg/dLHigh LDL: 160-189 mg/dLVery High LDL: greater than or equal to 190 mg/dL HDL Cholesterol 39(L) >40 mg/dL [facility] Comment:Desirable HDL: great er than 40 mg/dL Note: This HDL assay may give artificially low results in patients with liver disease. Blood Venous blood specimen / Unknown 09/19/2024 10:52 AM EST 09/19/2024 2:06 PM EST us Estrella Beck MD LAB BLOOD ORDERABLES Final Result [facility] [address] [place] [address] [phone] from Last 3 Months or Most Recently Relevant to Health Maintenance Insurance [facility] OPTIONS (O D-SNP) CADY RODARTE [id number] Care Teams Concrete Curer Relationship Specialty Start Date End Date Estrella Beck MD [address] [facility] [place] [address] PCP - General Internal Medicine 07/31/18
--- OUTSIDE RECORDS SUMMARY | 2025-06-10 10:20 | XMS_ITS | Encounter Summary ---
Author Organization [employer] Address [address] [facility] 7t [place] [address] Care Team Providers Care Nightclub Manager Name Role Phone Estrella Beck MD Primary Care Provider [phone] Encounter Details Date Type Department Care Team (Late st Contact Info) Description 03/20/2025 Orders Only [facility] MED & PEDS [address] [place] [address] Provider, MD Cinthya Social History Tobacco Use [...] Description 06/13/2025 2:00 PM EST Office Visit [facility] MED & PEDS [address] [place] [address] Ginger Orozco FNP [address] [place] [address] documented as of this encounter Procedures Procedure [...] documented as of this encounter Care Teams Nightclub Manager Relationship Specialty Start Date End Date Estrella Beck MD [address] [place] [address] PCP - General Internal Medicine 07/31/18 documented as of this encounter
== END 2025-06-10 10:08 | disposition home or self-care (01) ==
LOC: HO.HCS 09:28
PROVIDERS: PCP Internal Medicine; Visit Provider Internal Medicine
DX: I35.0 Nonrheumatic aortic (valve) stenosis (principal); I10 Essential (primary) hypertension; F17.210 Nicotine dependence, cigarettes, uncomplicated
CPT/HCPCS: 99214; G2211

== ENCOUNTER → 2025-06-10 09:27 | Outpatient (BNVA) | payer OTHER, SELFPAY | PROVIDERS: PCP Internal Medicine; Visit Provider Internal Medicine | DX: I10 Essential (primary) hypertension (principal); I35.0 Nonrheumatic aortic (valve) stenosis; F17.210 Nicotine dependence, cigarettes, uncomplicated | CPT/HCPCS: 99212 ==

== ENCOUNTER 2025-06-30 13:38 | Outpatient (REF) | payer OTHER, SELFPAY ==
--- OUTSIDE RECORDS SUMMARY | 2025-06-30 13:00 | XMS_ITS | Encounter Summary ---
Author Organization [employer] Address [address] [facility] 7t [place] [address] Care Team Providers Care Health Concierge Name Role Phone Estrella Beck MD Primary Care Provider [phone] Reason for Visit * Reason Comments Hypertension Encounter Details Date Type Department Care Team ([facility] Contact Info) Description 06/30/2025 1:00 PM EST Office Visit [facility] MED & PEDS [address] [place], [place] [phone] Ginger Orozco FNP [address] [place], [place] [phone] Primary hypertension (Primary Dx) Social History Tobacco Use Types Packs/Day Years [...] Sign Reading Time Taken Comments Blood Pressure 138/88 06/30/2025 1:11 PM EST manually checked Pulse 90 06/30/2025 1:11 PM EST Temperature 36.3 C (97.4 F) 06/30/2025 1:11 PM EST Respiratory Rate 18 06/30/2025 1:11 PM EST Oxygen Saturation - - Inhaled Oxygen Concentration - - Weight 75.8 kg (167 lb) 06/30/2025 1:11 PM EST Height 165.1 cm (5' 5 ) 06/30/2025 1:11 PM EST Body Mass Index 27.79 06/30/2025 1:11 PM EST documented in this encounter Miscellaneous Notes * Assessment & Plan Note - BECKY Doherty - 06/30/2025 1:33 PM ESTAssociated Problem(s): Hypertension Continue hydrochlorothiazide 12.5mg daily Olmesartan 5mg daily Monitor home BP readings Smoking cessation strongly encouraged documented in this encounter Plan of Treatment Not on file documented as of this encounter Visit Diagnoses Diagnosis Primary hypertension- Primary Unspecified essential hypertension documented in this encounter Additional Health Concerns Assessment Noted Time PHQ-9 Depression Total Score: 1 03/20/20 25 11:26 AM EDT documented as of this encounter Care Teams Health Concierge Relationship Specialty Start Date End Date Estrella Beck MD [address] [place] [address] PCP - General Internal Medicine 07/31/18 documented as of this encounter
[2025-06-30 14:43] LABS: Anion Gap 9 (12-20); Blood Urea Nitrogen 30 mg/dL (9-16); Calcium 8.9 mg/dL (8.4-10.2); Carbon Dioxide 30 mmol/L (22-29); Chloride 104 mmol/L (96-108); Estimated Glomerular Filt Rate 40; Potassium 3.8 mmol/L (3.3-5.1); Sodium 139 mmol/L (135-145)
--- OUTSIDE RECORDS SUMMARY | 2025-06-30 17:12 | XMS_ITS | Data Portability ---
Author Organization [facility], [facility] Address [address] [place] [address] Assessment No assessment recorded. Plan of Treatment [...] t Available Vitals Date Recorded Oxygen saturation Respiratory rate Body temperature Body weight Heart rate Systolic And Diastolic Provider Name and Address Organization Details Last Updated DateTime 4 99 % 18 /min 98.2 [degF] 28017.4 56 g 74 /min 154/88 mm[Hg] Not Available [facility] - production 17:54:08 Social History None recorded. Functional Status None recorded. Mental Status None recorded. Family History Nothing Reported. Medical History No medical history recorded. Past Encounters Encounter ID Performer Location Encounter Start Date Encounter Closed Date Diagnosis/Indication Diagnosis SNOMED-CT Code Diagnosis ICD10 Code Diagnosis IMO Codes Diagnosis Note [id number] Sherin Sow MD Main - [facility] [address] [place] [phone] 08/09/2023 17:53:59 08/10/2023 09:57:09 Localized eruption of skin [id number] R21 83 year old male being evaluated [...] assessment and plan as documented by the bindery leadperson. I provided real-time medical direction for this [...] Mcdaniels Member ID Guarantor Name 11/03/2023 1 [facility] - DOS ON OR AFTER 2022 - DUAL ELIGIBLE - SKILLED NURSING OPTIONS AND ONE CARE (MEDICARE REPLACEMENT/ADV ANTAGE - HMO) Isauro Tiwari [id number] Isauro Tiwari Notes Date Note Type Note [...] .................. .................. .................. .................. .................. .................. ............... Assistant Hall Director Note From Arben Gallo: Pt co rash on face and back. Denies cp sob dizziness headaches pain nausea vomiting or diarrhea. Baseline vitals assessed. Pictures taken of rash and uploaded. [facility] contacted and advised to make appt with pcp for further testing. Pt education on signs indicating the ER. Assistant Hall Director Allergies: Aspirin .................. .................. .................. .................. .................. .................. .................. ............... Disposition: Fulfilled Sherin Sow MD [address] [place] [address],[address], [place], [phone], MARIELLE PARK 08/09/2023 20:56:44
--- OUTSIDE RECORDS SUMMARY | 2025-06-30 17:13 | XMS_ITS | Encounter Summary ---
Author Organization [employer] Address [address] [facility] 7t [place] [address] Care Team Providers Care Pet Care Attendant Name Role Phone Estrella Beck MD Primary Care Provider [phone] Encounter Details Date Type Department Care Team (Latest Contact Info) Description 06/30/2025 Travel Social History Tobacco Use Types Packs/Day [...] documented as of this encounter Care Teams Pet Care Attendant Relationship Specialty Start Date End Date Estrella Beck MD [address] [place] [address] PCP - General Internal Medicine 07/31/18 documented as of this encounter
--- OUTSIDE RECORDS SUMMARY | 2025-06-30 17:13 | XMS_ITS | Clinical Summary ---
Author Organization [employer] Address [address] [facility] 7t [place] [address] Care Team Providers Care Tower Watchman Name Role Phone Estrella Beck MD Primary Care Provider [phone] Allergies Active Allergy Reactions Criticality Noted Date [...] HOURS NEEDED 90 tablet 5 5 Active hydroCHLOROthiaz karlo (Microzide) 12.5 MG capsule TAKE 1 CAPSULE DAILY 30 capsule 5 5 Active Diclofenac Sodium 1 % gelIndications:M uscle spasm To apply to the affected area 2 times a day 100 g 5 Active olmesartan (Benicar) 5 MG tablet Take 1 tablet (5 mg) by mouth Once per day. 90 tablet 1 06/13/2025 3:29 PM EST 5 06/13/20 26 Active Active Problems Problem Noted Date Diagnosed Date Aortic stenosis 12/25/2024 Primary osteoarthritis involving multiple joints 09/16/2022 Benign prostatic hyperplasia with nocturia 12/05 Tubular adenoma of colon 10/06/2014 Benign prostatic hyperplasia 05/19/2014 Erectile dysfunction 04/25/2012 Hypercholesterolemia 04/25/2012 Hypertension 04/25/2012 Assessment & Plan (06/30/2025 1:33 PM EST): Continue hydrochlorothiazide 12.5mg daily Olmesartan 5mg daily Monitor home BP readings Smoking cessation strongly encouraged Assessment & Plan (06/13/2025 5:04 PM EST): Continue hydrochlorothiazide 12.5mg daily START olmesartan 5mg daily, reviewed med safety and SE Check BMP in 2 weeks Monitor home BP readings 2x/day Smoking cessation strongly encouraged Follow up in 2 weeks Dental clearance form signed today --> Ok to proceed with routine dental cleaning with current BP readings 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 Assessment & Plan (06/13/2025 5:04 PM EST): - Smoking 8-10 cigg/day - Smoking cessation strongly encouraged, pt in pre-contemplation phase Encounters Date Type Department Care Team Description 06/30/2025 1:00 PM EST Office Visit [facility] MED & PEDS [address] [place] [address] Ginger Orozco FNP Primary hypertension (Primary Dx) 06/30/2025 Travel 06/25/2025 Telephone [facility] MED & PED[facility] [address] [place] [address] Estrella Beck MD Chart Prep 06/17/2025 Patient Outreach [facility] MEDICINE [address] [place], [place] [phone] Estrella Beck MD Pre-visit Planning (Pre visit planning LVM ) 06/16/2025 Telephone [facility] MED [facility] PED[facility] [address] [place] [address] Estrella Beck MD Dental Pre-op fax 06/13/2025 2:00 PM EST Office Visit [facility] MED [facility] PEDS [address] [place] [address] Ginger Orozco FNP Primary hypertension (Primary Dx); Tobacco dependence syndrome 06/13/2025 Travel 06/12/2025 Telephone [facility] MED & PEDS [address] [place] [address] Ginger Orozco FNP from Last 3 Months Immunizations Immunization Administration Dates Next Due José Manuela Covid-19 [...] 18 06/30/2025 1:11 PM EST Oxygen Saturation 96% 06/13/2025 2:2 3 PM EST Inhaled Oxygen Concentration - - Weight 75.8 kg (167 lb) 06/30/2025 1:11 PM EST Height 165.1 cm (5' 5 ) 06/30/2025 1:11 PM EST Body Mass Index 27.79 06/30/2025 1:11 PM EST Plan of Treatment Health Maintenance Due Date Last Done Comments RSV Patients and Patients Aged 60 years or older (1 - 1-dose 75+ series) 2017 Pneumococcal Vaccine: 50+ Years (1 of 2 - PCV) 09/19/2025 Postponed from 06/30 (Patient Refused) Zoster Vaccines (1 of 2) 09/19/2025 Pos tponed from 1992 (Patient Refused) Influenza Vaccine (#1) 2026 Postp oned from 03/31/2025 (Patient Refused) Alcohol/Substance Use Screening 03/20/2026 03/20/2025 Depression Screening 03/20/2026 03/20/2025, 03/20/2025 SDOH Screening 03/20/2026 03/20/2025 COVID-19 Vaccine ( - 2024-2 6 season) 2026 11/29/2021, 11/04/2020, 10/07/2020 Postponed from 03/31/2025 (Patient Refused) DTaP/Tdap/Td Vaccines (2 - T d or Tdap) 06/27/2026 06/27/2016 Tobacco Screening 06/30/2026 06/30/2025 Lipid Panel 09/19/2029 09/19/2024, 12/07/2021 HIB Vaccines [...] Procedure Name Priority Date/Time Associated Diagnosis Comments BASIC METABOLIC PANEL Routine 06/30/2025 1:40 PM EST Primary hypertension LIPID PANEL, STANDARD Routine 09/19/2024 10:52 AM EST Hypercholesterolemia Primary hypertension from Last 3 Months or Most Recently Relevant to Health Maintenance Results * (ABNORMAL) Basic Metabolic Panel (06/30/2025 1:40 PM EST) Sodium 139 135 - 145 mmol/L [facility] Potassium 3.8 3.3 - 5.1 mmol/L [facility] Chloride 104 96 - 108 mmol/L [facility] Carbon Dioxide 30(H) 22 - 29 mmol/L [facility] Anion Gap 9(L) 12 - 20 [facility] Urea Nitrogen (BUN) 30(H) 9 - 16 mg/dL [facility] Creatinine, Serum 1.64(H) 0.5 - 1.4 mg/dL [facility] Estimated Glomerular Filt Rate 40 [facility] Comment:Chronic Kidney Disea se: Estimated GFR < 60 mL/min/1.68x5Ymoozh Kidney Disease: Estimated GFR < 15 mL/min/1.73m2 Glucose 76 60 - 115 mg/dL [facility] Calcium 8.9 8.4 - 10.2 mg/dL [facility] Blood Venous blood specimen / Unknown 06/30/2025 1:40 PM EST 06/30/2025 2:17 PM EST us Ginger Orozco PROPELLANT CHARGE ZONE ASSEMBLER LAB BLOOD ORDERABLES Final Res ult [facility] [address] [place] [phone] * (ABNORMAL) Lipid Panel, Standard (09/19/2024 10:52 AM EST) Triglycerides 87 <150 mg/dL [facility] Comment:Desirable Triglyceri de: less than 150 mg/dLBorderline High Triglyceride 150-199 mg/dLHigh Triglyceride: 200-499 mg/dLVery High Triglyceride: greater than or equal to 5OO mg/dL Cholesterol 188 <200 mg/dL [facility] Comment:Desirable Cholestero l: less than 200 mg/dLBorderline High Cholesterol: 200-239 mg/dLHigh Cholesterol: greater than 239 mg/dL LDL Cholesterol Calculated 132(H) <100 mg/dL [facility] Comment:Desirable LDL: less than 100 mg/dLNear Optimal/Above Optimal LDL: 110- 129 mg/dLBorderline High LDL: 130-159 mg/dLHigh LDL: 160-189 mg/dLVery High LDL: greater than or equal to 190 mg/dL HDL Cholesterol 39(L) >40 mg/dL [facility] Comment:Desirable HDL: great er than 40 mg/dL Note: This HDL assay may give artificially low results in patients with liver disease. Blood Venous blood specimen / Unknown 09/19/2024 10:52 AM EST 09/19/2024 2:06 PM EST us Estrella Beck MD LAB BLOOD ORDERABLES Final Result [facility] [address] [place] [phone] from Last 3 Months or Most Recently Relevant to Health Maintenance Insurance [facility] SHELTER OPTIONS (O D-SNP) CADY RODARTE [id number] Care Teams Tower Watchman Relationship Specialty Start Date End Date Estrella Beck MD [address] [place] [address] [address] PCP - General Internal Medicine 07/31/18
--- OUTSIDE RECORDS SUMMARY | 2025-06-30 17:13 | XMS_ITS | Encounter Summary ---
Author Organization [employer] Address [address] [place] [address] [address] [place] [address] Care Team Providers Care Lead Burner Apprentice Name Role Phone Estrella Beck MD Primary Care Provider [phone] Reason for Visit * Reason Onset Date Comments Chart Prep 06/25/2025 Encounter Details Date Type Department Care Team ([facility] st Contact Info) Description 06/25/2025 Telephone [facility] MED & PEDS [address] [place] [address] Estrella Beck MD [address] [place] [address] Chart Prep Social History Tobacco Use Types Packs/Day Years [...] encounter Miscellaneous Notes * Telephone Encounter - Nguyen Leung [place] - 06/25/2025 2:49 PM EST Chart Prep Labs: not done Images: not applicable Referrals: complete Vaccines due: RSV Screenings: not applicable Overdue care gaps: Tobacco documented in this encounter Plan of Treatment Not on file documented as of this encounter Visit Diagnoses Not on filedocumented in this encounter Additional Health Concerns Assessment Noted Time PHQ-9 Depression Total Score: 1 03/20/20 25 11:26 AM EDT documented as of this encounter Care Teams Lead Burner Apprentice Relationship Specialty Start Date End Date Estrella Beck MD [address] [place] [address] PCP - General Internal Medicine 07/31/18 documented as of this encounter
--- OUTSIDE RECORDS SUMMARY | 2025-06-30 17:13 | XMS_ITS | Encounter Summary ---
Author Organization [employer] Address [address] [facility] 7t [place] [address] Care Team Providers Care Bariatric Nurse Name Role Phone Estrella Beck MD Primary Care Provider [phone] Encounter Details Date Type Department Care Team (Late st Contact Info) Description 03/20/2025 Orders Only [facility] CHC MED & PEDS [address] [place] [address] Provider, MD Cinthya Social History Tobacco Use [...] documented as of this encounter Care Teams Bariatric Nurse Relationship Specialty Start Date End Date Estrella Beck MD [address] [place] [address] PCP - General Internal Medicine 07/31/18 documented as of this encounter
== END 2025-06-30 13:39 | disposition home or self-care (01) ==
LOC: HO.CHCLDS 13:38
PROVIDERS: Visit Provider Registered Nurse
DX: I10 Essential (primary) hypertension (principal)
CPT/HCPCS: 36415; 80048